=== PATIENT | female | born 1955 | race Caucasian/White ===

== ENCOUNTER 2016-07-15 06:38 | Day surgery (SDC) | payer OTHER ==
[2016-07-15] MEDS ORDERED: MIDAZOLAM 2 MG/2 ML VIAL IVP ONE (06:41)
[2016-07-15] MEDS ORDERED: fentaNYL 100 MCG/2 ML INJ IVP ONE (06:41)
[2016-07-15] MEDS ORDERED: BENZOCAINE UNIT DOSE SPRAY HURRICAINE MM ONE (06:41)
[2016-07-15] MEDS ORDERED: NS 1,000 ML IV ONE (06:41)
[2016-07-15] MEDS ORDERED: PROPOFOL 200 MG/20 ML VIAL ONE (07:58)
[2016-07-15] MEDS ORDERED: SUCCINYLCHOLINE CHLORIDE*ANESTHESIA ONLY*200 MG/10 ML SYR IVP ONE (07:58)
[2016-07-15] MEDS ORDERED: LIDOCAINE 2% 100 MG/5 ML SYR ONE (07:58)
--- NOTE | 2016-07-15 09:12 | ECHO ---
[id number] + + [address] : : [facility] [address] : : [phone] + + Adult Echocardiographic Report + + :Name: WILLY AUGUSTIN Study Date: 07/15/2016 07:53 AM : : Hospital Admission Number: [id number] : :: 1955 Gender: Female : :Age: 60 yrs Race: WH : + + Left Ventricle Left ventricular systolic function is normal. Ejection Fraction = 60-65%%. The left ventricular wall motion is normal. Right Ventricle The right ventricle is normal in size and function. Atria No thrombus is detected in the left atrial appendage. The left atrial size is normal. Right atrial size is normal. The atrial septum is aneurysmal. Injection of contrast documented an interatrial shunt. Mitral Valve The mitral valve is normal in structure and function. There is no evidence of mitral valve prolapse. There is trace mitral regurgitation. Tricuspid Valve The tricuspid valve is normal in structure and function. There is trace tricuspid regurgitation. Aortic Valve The aortic valve is normal in structure and function. Trace aortic regurgitation. Pulmonic Valve The pulmonic valve is normal in structure and function. There is no pulmonic valvular regurgitation. Great Vessels Ascending aorta is normal size. Pericardium/Pleural There is no pericardial effusion. Conclusion No thrombus is detected in the left atrial appendage. The atrial septum is aneurysmal. Injection of contrast documented an interatrial shunt. The aortic valve is normal in structure and function. Trace aortic regurgitation. There is trace tricuspid regurgitation. There is trace mitral regurgitation. Left ventricular systolic function is normal. Ejection Fraction = 60-65%%. The left ventricular wall motion is normal. Final Reading Physician: Nadeem Rader electronically signed on 07/15/2016 09:11 AM Ordering Physician: Nadeem Rader
--- NOTE | 2016-07-15 09:13 | CPR ---
[f rep st] NONINVASIVE CARDIAC PROCEDURE REPORT DATE OF PROCEDURE: 07/15/2016 PROCEDURE: Transesophageal echocardiogram. INDICATION FOR THE PROCEDURE: History of hypoxia, sleep apnea, and evidence of positive agitated sa line contrast study and transthoracic echocardiogram. SANDRA is being performed to assess interatrial septum in greater detail. DESCRIPTION OF PROCEDURE: After informed consent, the patient was brought to the cardiovascular pro cedure suite. She was consulted for transesophageal echocardiogram. She was also seen by Dr. Celestin of anesthesia who consented patient for propofol sedation during the procedure. Risks and benefits of the procedure were reviewed in detail. Patient was agreeable to pursue. After time-out, a bite block was placed. Propofol was administered. Once appropriate level of nancy tion was achieved, SANDRA probe was passed without incident. SANDRA probe was used to take images of all cardiac structures with focus on interatrial septum. Please see complete echo report for details. Interatrial septum was aneurysmal with color Doppler as well as agitated saline contrast study for p atent foramen ovale. There was complete rim of tissue. There was no evidence of atrial septal defe ct. The remainder of her echocardiogram was relatively unremarkable. Patient tolerated the procedure well. No postoperative complications. PLAN: 1. The patient will recover in [facility]. 2. The patient will be discharged home later this morning. 3. The patient will follow up in our office for plans for further considerations. /[id number]/MODL
== END 2016-07-15 10:52 | disposition home or self-care (01) ==
LOC: FCATH 06:38
PROVIDERS: ATTEND Internal Medicine Cardiovascular Disease
PROC: B246ZZ4 Ultrasonography of Right and Left Heart, Transesophageal (ICD-10-PCS; principal; 2016-07-15)
DX: G47.33 Obstructive sleep apnea (adult) (pediatric) (principal); R09.02 Hypoxemia; I10 Essential (primary) hypertension; E78.4 Other hyperlipidemia; F17.210 Nicotine dependence, cigarettes, uncomplicated; Z82.3 Family history of stroke
CPT/HCPCS: J0330; J2001; J2704

== ENCOUNTER 2017-06-05 09:11 | Inpatient (IN) | payer OTHER ==
--- NOTE | 2017-06-05 09:21 | EDPHY ---
H & P Stated Complaint: aphasia for a week, MILLIGAN for 3 weeks Time Seen by Provider: 06/05/17 09:18 - Personal History Current Tetanus/Diphtheria Vaccine: No Current Tetanus Diphtheria and Acellular Pertussis (TDAP): No - Medical/Surgical History Hx Asthma: No Hx Chronic Respiratory Disease: No Hx Diabetes: Yes Hx Cardiac Disease: Yes Hx Renal Disease: No Hx Cirrhosis: No Hx Alcoholism: No Hx HIV/AIDS: No Hx Splenectomy or Spleen Trauma: No Other PMH: HTN, Hyperlipidema, depression - Social History Smoking Status: Light smoker Constitutional: Initial Vital Signs Temperature (C) 37.4 C 06/05/17 09:15 Heart Rate 76 06/05/17 09:15 Respiratory Rate 18 06/05/17 09:15 Blood Pressure 140/77 H 06/05/17 09:15 O2 Sat (%) 94 06/05/17 09:15 O2 Delivery Mode Room Air Allergies/Adverse Reactions: No Known Allergies Allergy (Verified 06/05/17 09:14) Home Medications: Medication Instructions Recorded Amlodipine Besylate 5 mg PO DAILY 07/15/16 Aspirin 81 mg PO DAILY 07/15/16 Citalopram 40 mg PO DAILY 07/15/16 Claritin 10 mg 10 mg PO DAILY 07/15/16 Epipen Kit 07/15/16 Lovastatin 20 mg PO DAILY 07/15/16 Prozac 20 MG (*) 20 mg PO DAILY 07/15/16 Triamterene-Hctz 37.5-25 mg Tb 1 tab PO DAILY 07/15/16 Medical Decision Making - Diagnostics Imaging Results: Imaging Impressions Brain MRI 06/05/17 09:29 Impression: 3.5 cm enhancing mass in the left parietal occipital junction suspicious for primary malignant neoplasm. There could be punctate calcification or hemosiderin deposition within it. Surrounding vasogenic edema and mild mass effect with mild midline shift subfalcine of left to right. Results called and discussed with Jeffery Li M.D. on 06/05/2017 at 11:22 a.m. Carotid Doppler Study 06/05/17 09:30 Impression: No hemodynamically significant stenosis by systolic velocity criteria. Findings discussed with perry Goel for Jeffery Li MD 06/05/2017 at 11 :53. Measurement of carotid stenosis is based on velocity parameters that correlate the residual internal carotid diameter with [place] Symptomatic Carotid Endarterectomy Trial (NASCET) based stenosis levels. Imaging: Discussed imaging studies w/ call worker Radiologist, I viewed and interpreted images myself ED Course/Re-evaluation: CHIEF COMPLAINT: Word-finding difficulty, headache HISTORY OF PRESENT ILLNESS: The patient is a 61 y/o female with a history of hypertension, hyperlipidemia, and PFO per records arriving with her friend at the recommendation of her PCP for progressive, but intermittent word-finding difficulty and headache over the last week. She was recently treated with antibiotics for a frontal headache that resolved. About one week ago she developed intermittent word finding difficulty and mild left occipital headache. She was evaluated by her PCP for this last week, but was asymptomatic at that time. She was prescribed a full strength aspirin daily with plan for outpatient imaging. She has taken aspirin for the last two days. Symptoms have continued to worsen since then, which is corroborated by her friend at bedside who describes odd wording in emails from the patient through the week. Today she has an occipital headache, feels mildly off balance, and has difficulty forming some words. She denies difficulty thinking of the appropriate word and has some confabulation of words stating things like, "I'm at the docisptal." She denies focal weakness or paresthesias. She has never had symptoms like this previously. REVIEW OF SYSTEMS: A 10 point review of systems was performed and is negative with the exception of the elements mentioned in the history of present illness. PHYSICAL EXAM: HR, BP 140/77, O2 Sat, RR. Temp noted General Appearance: Alert, well hydrated, appropriate, and non-toxic appearing. Head: Atraumatic without scalp tenderness or obvious injury Eyes: Pupils equal, round, reactive to light and accommodation, EOMI, no trauma , no injection. Nose: Atraumatic, no rhinorrhea, clear. Throat: Mucus membranes moist. Neck: Supple, nontender, no lymphadenopathy. Respiratory: No retractions, no distress, no wheezes, and no accessory muscle use. Lungs are clear to auscultation bilaterally. Cardiovascular: Regular rate and rhythm, no murmurs, rubs, or gallops. Good capillary refill all extremities. Gastrointestinal: Abdomen is soft, nontender, non-distended, no masses, no rebound, no guarding, no peritoneal signs. Musculoskeletal: Normal active ROM of all extremities, atraumatic. Neurological: Alert, following commands, and interactive. The patient has non- focal cranial nerves, motor, sensory, and cerebellar exam. Occasional word- finding/forming difficulty and confabulation. Skin: No rashes, good turgor, no nodules on palpation. Past medical history: Hypertension, hyperlipidemia, sinusitis, PFO Past surgical history: Noncontributory Family history: Noncontributory Social history: Lives in [place]. Friend at bedside. PCP: Dr. Gonzalez DIAGNOSTICS/PROCEDURES/CRITICAL CARE TIME: The 12 lead EKG was interpreted by myself. Sinus mechanism rate 71. See hard copy and/or "tracemaster" electronic copy for interpretation. Echocardiogram: informal read shows PFO, known from prior records. Carotid doppler: no significant stenosis Brain MRI: 3.5 cm enhancing mass in the left parietal occipital junction suspicious for primary malignant neoplasm DIFFERENTIAL DIAGNOSIS: The differential diagnosis for the patient's neurologic deficits included but was not limited to peripheral causes, central causes including CVA, TIA, electrolyte abnormalities and dehydration, cardiogenic causes, atypical causes like migraine syndrome. MEDICAL DECISION MAKING: This is a 61 y/o female with hypertension and known PFO who presents with a 1- week history of intermittent and progressive left occipital headache and word- finding/forming difficulties. She confabulates some words and has a delay when trying to say some words during exam. No unilateral weakness or asymmetry. Concern for stroke, but outside the window for alert. Plan for IV, labs, echocardiogram, EKG, and brain MRI. 30mg IV Toradol administered for headache. Brain MRI shows large left-sided mass likely tumor with surrounding edema. 10mg IV Decadron ordered. Consider antiepileptics. Neurosurgery paged. 1128: Consulted with Dr. Young Wylie, neurosurgery. He will review films and assess patient in the ED. 1130: Consulted with Dr. Gonzalez, patient's PCP, and updated him on condition. Spoke with hospitalist service. Dr. Stovall accepts admission. - Data Points Laboratory Results: Laboratory Results 06/05/17 09:25 06/05/17 09:25 06/05/17 06/05/17 06/05/17 09:25 09:25 09:25 WBC 7.26 10^3/uL 10^3/uL (3.80-9.50) RBC 5.19 10^6/uL 10^6/uL (4.18-5.33) Hgb 16.3 g/dL g/dL (12.6-16.3) Hct 49.2 % H % (38.0-47.0) MCV 94.8 fL fL (81.5-99.8) MCH 31.4 pg pg (27.9-34.1) MCHC 33.1 g/dL g/dL (32.4-36.7) RDW 11.9 % % (11.5-15.2) Plt Count 287 10^3/uL 10^3/uL (150-400) MPV 10.3 fL fL (8.7-11.7) Neut % (Auto) 58.3 % % (39.3-74.2) Lymph % (Auto) 28.8 % % (15.0-45.0) [place] % (Auto) 10.7 % % (4.5-13.0) Eos % (Auto) 1.1 % % (0.6-7.6) Baso % (Auto) 0.8 % % (0.3-1.7) Nucleat RBC Rel Count 0.0 % % (0.0-0.2) Absolute Neuts (auto) 4.23 10^3/uL 10^3/uL (1.70-6.50) Absolute Lymphs (auto) 2.09 10^3/uL 10^3/uL (1.00-3.00) Absolute Monos (auto) 0.78 10^3/uL 10^3/uL (0.30-0.80) Absolute Eos (auto) 0.08 10^3/uL 10^3/uL (0.03-0.40) Absolute Basos (auto) 0.06 10^3/uL 10^3/uL (0.02-0.10) Absolute Nucleated RBC 0.00 10^3/uL 10^3/uL (0-0.01) Immature Gran % 0.3 % % (0.0-1.1) Immature Gran # 0.02 10^3/uL 10^3/uL (0.00-0.10) PT 12.2 SEC SEC (12.0-15.0) INR 0.88 (0.83-1.16) Sodium 140 mEq/L mEq/L (135-145) Potassium 4.2 mEq/L mEq/L (3.5-5.2) Chloride 99 mEq/L mEq/L (97-110) Carbon Dioxide 29 mEq/l mEq/l (22-31) Anion Gap 12 mEq/L mEq/L (8-16) BUN 17 mg/dL mg/dL (7-23) Creatinine 0.8 mg/dL mg/dL (0.6-1.0) Estimated GFR > 60 Glucose 94 mg/dL mg/dL (70-100) Calcium 9.8 mg/dL mg/dL (8.5-10.4) Troponin I < 0.012 ng/mL ng/mL (0.000-0.034) Medications Given: Discontinued Medications Dexamethasone (Decadron Injection) 10 mg IVP EDNOW ONE Stop: 06/05/17 11:26 Last Admin: 06/05/17 12:04 Dose: 10 mg Ketorolac Tromethamine (Toradol) 30 mg IVP EDNOW ONE Stop: 06/05/17 11:04 Last Admin: 06/05/17 11:05 Dose: 30 mg Departure - Departure Disposition: [facility] Inpatient Acute Clinical Impression: Brain tumor, Aphasia Condition: Fair Report Scribed for: Jeffery Li Report Scribed by: Manasa Valdivia Date of Report: 06/05/17 Time of Report: 10:35
--- NOTE | 2017-06-05 09:27 | CPEKG ---
Heart Rate: 71 RR Interval: 845 P-R Interval: 172 QRSD Interval: 84 QT Interval: 428 QTC Interval: 466 P Ulm: 32 QRS Ulm: -8 T Wave Ulm: 10 EKG Severity - NORMAL ECG - EKG Impression: SINUS RHYTHM Electronically Signed By: Jeffery Li 05-Jun-2017 13:31:42
[2017-06-05 09:39] LABS: PLATELET COUNT 287 10^3/uL (150-400)
[2017-06-05 09:48] LABS: INR 0.88 (0.83-1.16); PROTIME(PATIENT) 12.2 SEC (12.0-15.0)
[2017-06-05] MEDS ORDERED: GADOBUTROL 10 ML VIAL IVP ONE (10:29)
[2017-06-05] MEDS ORDERED: KETOROLAC 30 MG/1 ML SDV IVP ONE (11:03)
[2017-06-05] MEDS ORDERED: DEXAMETHASONE 10 MG/ML VIAL IVP ONE (11:25)
--- NOTE | 2017-06-05 13:09 | ECHO ---
[email or web address] [address] [address] Main: [phone] Fax: [email or web address] Echocardiogram Name: WILLY AUGUSTIN MR#: [id number] Study Date: 06/05/2017 Study Time: 09:55 AM Date of : 1955 Age: 61 year(s) Height: 167.6 cm (66 in.) Weight: 81.65 kg (180 lb.) BSA: 1.91 m2 Gender: Female Examination: Echo Indication: Trouble word finding/CVA vs TIA Image Quality: Contrast: Requested by: Jeffery Li BP: / Heart Rate: Rhythm: Indication: Trouble word finding/CVA vs TIA Procedure Staff Web Press Operator Assistant: Kavitha Davidson RDCS Reading Physician: Nadeem Rader MD Requesting Provider: Conclusions: Normal size left ventricle. Normal global systolic LV function. The ejection fraction is estimated to be 65-70 %. No regional wall motion abnormality. Grade 1 diastolic dysfunction (abnormal relaxation). The left atrium is normal in size. The right atrium is normal in size. The pulmonary artery pressure is normal. Borderline aortic root dilitation with Index value of 1.93. Measurements: Chambers Valvular Assessment AV/MV Valvular Assessment TV/PV Normal Normal Normal Name Value Range Name Value Range Name Value Range Ao María Elena (MM): 3.5 cm (2.2 cm-3.7 AV Vmax: 1.65 m/s (1 m/s-1.7 TR Vmax: 2.34 mm/s ( - ) cm) m/s) TR PGmax: 22 mmHg ( - ) IVSd (2D): 0.7 cm (0.6 cm-1.1 AV maxP mmHg ( - ) syst. PAP: 27 mmHg ( - ) cm) AV meanP mmHg ( - ) LVDd (2D): 5.0 cm (3.9 cm-5.3 MV E Vmax: 0.53 m/s ( - ) cm) MV A Vmax: 0.73 m/s ( - ) LVDs (2D): 2.7 cm (2.1 cm-4 MV E/A: 0.73 ( - ) cm) LVPWd (2D): 0.5 cm ( - ) LVEF (MOD4): 72 % (>=55 %) EF Range: 65-70 % Continued Measurements: Chambers Valvular Assessment AV/MV Valvular Assessment TV/PV Patient: WILLY AUGUSTIN Study Date: 06/05/2017 Page 1 of 2 09:55 AM Name Value Name Value Name Value LADs: 3.4 cm MV E/E' Septal: 9.40 CVP (est.): 5 mmHg LADs Lon.4 cm MV E/E' Lateral: 5.80 LA Area: 18.7 cm2 TAPSE: 2.0 cm Additional Vessels Name Value Ao Ascendin.7 cm Findings: Left Ventricle: Normal size left ventricle. No LV hypertrophy. Normal global systolic LV function. The ejection fraction is estimated to be 65-70 %. No regional wall motion abnormality. Grade 1 diastolic dysfunction (abnormal relaxation). Right Ventricle: Normal size right ventricle. Normal RV function. Left Atrium: The left atrium is normal in size. Known PFO from SANDRA done 07/20.. Right Atrium: The right atrium is normal in size. Mitral Valve: The mitral valve is normal in appearance and function. Trivial mitral valve regurgitation. Aortic Valve: The aortic valve is normal in appearance and function. Trivial to mild aortic valve regurgitation. Mild aortic valve regurgitation is present. Tricuspid Valve: The tricuspid valve is normal in appearance and function. Trivial tricuspid valve regurgitation. The pulmonary artery pressure is normal. Pulmonic Valve: The pulmonic valve is normal in appearance and function. Aorta: Borderline aortic root dilitation with Index value of 1.93. Pericardium: No pericardial effusion. (No Signature Object) Patient: WILLY AUGUSTIN Study Date: 06/05/2017 Page 2 of 2 09:55 AM [id number]
[2017-06-05] MEDS ORDERED: ONDANSETRON DISINTEGRATING 4 MG TAB PO PRN (13:21)
[2017-06-05] MEDS ORDERED: ONDANSETRON 4 MG/2 ML VIAL IVP PRN (13:21)
--- NOTE | 2017-06-05 15:14 | GHP ---
[f rep st] HISTORY AND PHYSICAL DATE OF ADMISSION: 06/05/2017 CHIEF COMPLAINT: Word-finding difficulties and headache x1 week. HISTORY OF PRESENT ILLNESS: The patient is a 61-year-old female with a history of hypertension, hyperlipidemia, patent foramen ovale who came to the emergency room for progressive but intermittent word-finding difficulties ongoing for the last week. She also has had a headache that has come and gone. She was recently treated with azithromycin for a frontal headache that subsequently resolved. She also said that she had fevers, no chills, but had cold-like symptoms that have since resolved. Her word finding difficulty did not subside , and she went to see her primary care provider who told her to come to the emergency room. In the emergency room, she had an occipital headache and felt mildly off- balance and had some difficulty finding some words. During my interview, her symptoms had improved. She had been given a dose of Decadron. She denies any weight loss. She has had no seizure activity. She has had some difficulties with her vision. No double vision, but problems with distant and close up vision. She has trouble with speaking and finding words, but has no problems with receiving information. She had an MRI performed that showed an enhancing mass in the left parietooccipital junction suspicious for a primary malignant neoplasm. She was seen and evaluated by Neurosurgery. She was admitted for further evaluation. PAST MEDICAL HISTORY: 1. Hypertension. 2. Hyperlipidemia. 3. Depression. 4. Patent foramen ovale that was treated with aspirin therapy. PAST SURGICAL HISTORY: Kincaid teeth extraction. SOCIAL HISTORY: She lives alone in [place]. 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 She has no children. She has smoked for greater than 30 years and is down to 2 cigarettes a day. She used to smoke as much as a pack a day. She has approximately 3 beers a couple times a week. FAMILY HISTORY: Her mom had a history of breast cancer. She at age 85. She from complications of a stroke. Her father is 86 and . She is unclear what he from, but she knows that he also has had strokes. Her siblings do not have any type of cancer. ALLERGIES: No known allergies. HOME MEDICATIONS: Azithromycin 250 mg daily, herbal supplements 1 tab daily, Celexa 40 mg p.o. q.h.s., aspirin 325 mg daily, triamterene 1 tab daily, lovastatin 20 mg p.o. q.h.s., EpiPen 0.3 mg p.r.n. for allergic reaction. REVIEW OF SYSTEMS: A 10-point review of systems was performed, was negative other than pertinent positives in HPI and past medical history. PHYSICAL EXAM: GENERAL: The patient is a 61-year-old female who appears to be in fair health. VITAL SIGNS: Blood pressure is 140/97, heart rate is 78, respiratory rate is 18, O2 sats on 2 L are 96%, temperature is 36.8 Celsius. EYES: PERRLA, EOMs are intact. No conjunctival injection noted. ENT: Hearing is intact. Normal lips. Oral airway is moist. NECK: Trachea is midline. CARDIOVASCULAR: She is in a regular rate and rhythm. No murmurs, rubs, or gallops noted. She has 2+ pedal pulses. CHEST: Lungs normal respiratory effort. Clear without wheezing or rale. ABDOMEN: Soft, nontender. SKIN: No rashes. Warm, dry, and intact. MUSCULOSKELETAL: She has equal upper and lower extremity strength. NEUROLOGIC: Her sagger filler are equal bilaterally. Her tongue is midline. No pronator drift is noted. Pull up and pull down with her feet are equal. She does have some difficulty with finding words, but when she thinks through she is able to tell me what she is wanting to say. PSYCHIATRIC: She is alert and oriented. Normal mood, affect. Normal judgment, insight, and normal memory. LABORATORY DATA: A CBC shows a white blood cell count of 7.26, hemoglobin 16.3 , hematocrit of 49.2, platelet count of 287. Coags show a pro time of 12.2, INR of 0.88. Chemistry: Sodium is 140, potassium 4.2, chloride 99, CO2 of 29, BUN 17, creatinine 0.8, glucose of 94, calcium 9.8. Troponin negative at 0.02. IMAGIN. ECG was performed in the emergency room which I evaluated myself. This shows a sinus rhythm. 2. MRI shows a 3.5 cm enhancing mass in the left parietooccipital junction suspicious for primary malignant neoplasm. There could be a punctate calcification or hemosiderin deposition with it. She has surrounding vasogenic edema and mild mass effect with a mild midline shift sub falcine of left to right. 3. Echocardiogram. No LV hypertrophy. She has normal global systolic LV function. Her ejection fraction is 65% to 70% without any regional wall abnormality. She has grade I diastolic dysfunction. Her left atrium shows a known PFO from a SANDRA done in 07/2016. The pulmonary artery pressure is noted to be normal. She has no pericardial effusion. She has borderline aortic root dilatation with an index value of 1.93. 4. Carotid Doppler study. No hemodynamically significant stenosis. I reviewed her care with Dr. Jeffery Li, emergency room physician. ASSESSMENT AND PLAN: 1. Left parietooccipital lesion concerning for malignancy. She has some swelling. Neurosurgery has seen and evaluated her. She has been started on Decadron for the edema. The plan is for surgery on this coming . She has a history of smoking. Will get a chest x-ray to further evaluate. In addition, will check liver function tests. Could consider getting a CT of the chest, abdomen, and pelvis, but will further evaluate chest x-ray results. 2. Hyperlipidemia. Resume statin. 3. Hypertension. Resumed her home medications with parameters placed on them. 4. Depression. Celexa. 5. Nicotine dependence. Patch ordered. Cessation recommended. 6. Deep venous thrombosis prophylaxis. Will place her on bmj-flifzdyzd-enkubt heparin. This will need to be stopped prior to morning. 7. Code status: Full. 8. Length of stay: She will require greater than a 2-midnight stay for further evaluation of the brain lesion. /[id number]/MODL MTDD
[2017-06-05] MEDS: AZITHROMYCIN 250 MG TAB PO SCH (15:35)
--- NOTE | 2017-06-05 15:37 | PDMN ---
Medical Necessity Medical necessity: Patient meets inpatient criteria per REFRACTORY MANAGER note and [facility] (new-onset severe neurologic finding: mass effect/L to R shift on MRI; mass suspicious for primary malignant neoplasm; history of MILLIGAN's, increasing difficulty with word-finding intermittently: LOS will be > 2 midnights for anticipated debulking neurosurgery after further workup, IV Decadron.)
[2017-06-05] MEDS ORDERED: TEMAZEPAM 15 MG CAP PO PRN (17:15)
[2017-06-05] MEDS: DEXAMETHASONE 4 MG TAB PO SCH ×2 (17:50→23:55)
--- NOTE | 2017-06-05 19:56 | NEUSURGPN ---
Assessment/Plan: Assessment: 61 yr old with aphasia, left sided headaches. MRI brain with left parietal/occipital mass Plan: -Please see full dictated consult when available -Patient admitted to medicine -Hold ASA -Will start decadron 4mg [id number] -Plan for surgery this with Dr Bueno -Patient was seen and examined by myself and Dr Wylie in the ER today at 1135 -Please call neurosurgery with any questions/concerns Subjective: Left sided headache Objective: AxO x3 CN 2-12 grossly intact aside from facial droop Mild right facial droop Mild right pronator drift Aphasic throughout conversation 07/08 BUE, BLE Neuro Check Frequency: per routine Urinary Catheter in Place: No - Physician Discussed Patient with : Dejan Patient Seen by : Dejan (Patient discussed with Dr Bueno as well) Neurosurgery Physical Exam - Vitals, I&O, Labs I and O 06/04/17 06/05/17 06/06/17 05:59 05:59 05:59 Intake Total 3500 Output Total 100 Balance 3400 Weight 81.647 kg Intake: Oral (ml) 2500 IV Infused (ml) 1000 Output: Urine (ml) 100 Toilet 100 Other: Intake Quantity Yes Sufficient Number of Voids Toilet 3 Vital Signs Temp Pulse Resp BP Pulse Ox 36.9 C 72 18 138/81 H 94 06/05/17 19:43 06/05/17 19:43 06/05/17 19:43 06/05/17 19:43 06/05/17 19:43 ICD10 Worksheet Patient Problems: Problems Problem Status Onset Aphasia Acute Brain tumor Acute
[2017-06-05] MEDS ORDERED: NON-FORMULARY NEW DRUG (Citalopram Hydrobromide [Celexa] 40 MG) PO SCH (21:00)
[2017-06-05] MEDS: MELATONIN 3 MG TAB PO SCH (21:09)
[2017-06-05] MEDS: CITALOPRAM 20 MG TAB PO SCH (21:09)
--- NOTE | 2017-06-05 21:25 | GCON ---
[f rep st] CONSULTATION EMERGENCY ROOM CONSULTATION CHIEF COMPLAINT: Difficulty speaking, left cranial mass HISTORY OF PRESENT ILLNESS: The patient is a 61-year-old female with a history of hypertension and hyperlipidemia. The patient reports having increasing left- sided headaches, as well as difficulty with speech over the last 3 weeks. The patient presented to the emergency department today, underwent a MRI of the brain, which was found to have a left-sided cranial mass. REVIEW OF SYSTEMS: A 10-point review of system was performed and negative aside from what was mentioned in the HPI. MEDICAL HISTORY: Hypertension, hyperlipidemia, and depression. MEDICATIONS: Amlodipine 5 mg daily, aspirin 81 mg daily, citalopram 40 mg daily , Claritin 10 mg daily, lovastatin 20 mg daily, Prozac 20 mg daily, and triamterene/hydrochlorothiazide 37.5/25 mg daily. SURGICAL HISTORY: Patient denies any previous surgeries. ALLERGIES: Patient has no known drug allergies. FAMILY HISTORY: Patient's mother had a breast cancer later in her life when she was 78. 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 She is a light smoker, admits to smoking 3 cigarettes per day. She drinks 2-3 beers approximately 2-3 times per week. She denies any use of illicit drugs, including marijuana. DIAGNOSTICS/LABORATORY RESULTS: Laboratory Results: White blood cell count 7.24, hemoglobin 16.3, hematocrit 49.2, platelet count 287, PT 12.2, INR 0.88, sodium 140, potassium 4.2, BUN 17, creatinine 0.8, glucose 94. DIAGNOSTIC IMAGING: MRI of the brain performed with without contrast earlier this morning, demonstrates a 3.5 cm enhancing mass in the left parietal occipital junction which is suspicious for a primary malignant neoplasm. Surrounding vasogenic edema and mild mass effect with mild midline shift, subfalcine of left to right. PHYSICAL EXAMINATION: VITAL SIGNS: Blood pressure is 140/97, heart rate 78, respiratory rate 18, oxygen saturation is 96% on 2 L nasal cannula, temperature is 37.4 degrees Celsius. HEENT: Head is normocephalic, atraumatic. Pupils are equal, round, and reactive to light. EOMI is intact. Full visual manning by confrontation. RESPIRATORY: Deferred. CARDIAC: Deferred. ABDOMEN: Deferred. GENITOURINARY: Deferred. RECTAL: Deferred. NEUROLOGIC: The patient is awake, alert, oriented to name, place, location, date, time, and situation. Her memory is intact to immediate past and current events. SPEECH: The patient has aphasia, difficulty with words. Cranial nerves 2-10 are grossly intact, aside from a mild right facial droop. Patient also has a mild right pronator drift. MOTOR: The patient has 5/5 strength in all muscle groups in the bilateral lower and upper extremities to include deltoids, biceps , triceps, brachioradialis, wrist flexion, extensors, sample mounter, intrinsic fingers, iliopsoas, quadriceps, hamstring, plantar flexion, dorsiflexion, EHL testing. Sensation is grossly intact to light touch throughout all dermatomal distributions in bilateral upper and lower extremities. REFLEXES: Biceps, triceps, brachioradialis, knee jerk and ankle jerk are 2+/4. Toes are downgoing bilaterally. Abilio sign is negative. Babinski is negative. There is no evidence of clonus. ASSESSMENT AND PLAN: The patient is a 61-year-old female who presented to the emergency department with 3 weeks of progressive aphasia and left-sided headaches. The patient underwent a MRI of the brain with without contrast, which demonstrated a 3.5 cm enhancing mass in the left parietal occipital region. The patient is being admitted to the medicine team. We will start the patient on steroids 4 mg q.6 hours to help with the edema. No Keppra at this time. We will stop her aspirin in preparation for surgery, which will likely happen later this week after she is off her aspirin for a few days. The patient will undergo a left craniotomy for tumor resection with Dr. Kaleb Bueno possibly this on June 08. We will need to get a stealth MRI with and without prior to surgery for operative planning. The patient was seen and examined by myself and Dr. Reyna Wylie in the emergency department today, June 05, 2017, at 11:35 a.m. Please call Neurosurgery with any questions or concerns. /[id number]/MODL MTDD
[2017-06-06] MEDS: DEXAMETHASONE 4 MG TAB PO SCH ×3 (05:46→17:21)
[2017-06-06] MEDS: amLODIPine BESYLATE 5 MG TAB PO SCH (07:59)
[2017-06-06] MEDS: NICOTINE 7 MG/24 HR PATCH TD SCH (08:01)
[2017-06-06] MEDS: TRIAMTERENE/HCTZ 37.5/25 1 EACH TAB PO SCH (08:02)
[2017-06-06] MEDS ORDERED: ENOXAPARIN 40 MG/0.4 ML SYR SC SCH (09:00)
--- NOTE | 2017-06-06 09:04 | NEUSURGPN ---
Assessment/Plan: Assessment: 61 yr old with expressive aphasia, left sided headaches and left parietal/occipital mass Plan: -Appreciate medicine work up/management -Continue to hold ASA -Continue decadron 4mg [id number] -Plan for surgery this with Dr Bueno, briefly discussed the risks, benefits and alternatives for a left frontal craniotomy/biopsy/resection with the patient -Please call neurosurgery with any questions/concerns - Discussed with Dr. Bueno Subjective: Speech stable, denies new headaches Objective: NAD A&Ox3 Expressive aphasia, CN II-XII grossly intact. MAEx4 Neurosurgery Physical Exam - Vitals, I&O, Labs I and O 06/05/17 06/06/17 06/07/17 05:59 05:59 05:59 Intake Total 4200 Output Total 100 Balance 4100 Weight 81.647 kg Intake: Oral (ml) 3200 IV Infused (ml) 1000 Output: Urine (ml) 100 Toilet 100 Other: Intake Quantity Yes Sufficient Number of Voids Toilet 2 Vital Signs Temp Pulse Resp BP Pulse Ox 36.8 C 62 16 129/78 H 98 06/06/17 07:15 06/06/17 07:15 06/06/17 07:15 06/06/17 08:02 06/06/17 07:15 ICD10 Worksheet Patient Problems: Problems Problem Status Onset Aphasia Acute Brain tumor Acute
--- NOTE | 2017-06-06 11:06 | ASMTCMCOM ---
CM Note CM Note Notes: Patient admitted for expressive aphasia - found to have concerning L parietal/occipital mass. Surgery planned for 06/08. [facility] BUT[facility]ER has recommended inpatient rehab, but discharge needs will be clearer post-operatively. 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 Case Management will follow. Date Signed: 06/06/2017 11:05 AM Electronically Signed By:Belén Knutson RN
[2017-06-06] MEDS: AZITHROMYCIN 250 MG TAB PO SCH (12:01)
--- NOTE | 2017-06-06 14:27 | HOSPPROG ---
Hospitalist Progress Note Assessment/Plan: # Acute left parietal occipital brain lesion- MRI brain(personally reviewed and interpreted) 3.5 cm enhancing left-sided brain mass Patient with recent and persistent word-finding difficulties Chest x-ray (personally reviewed and interpreted) no acute abnormalities- oxygen saturations 95% on RA - neurosurgery consulting - Continue Decadron - planning for brain biopsy 06/08 # hypertension- controlled systolic blood pressure 120-130- sodium 140 - Continue home meds # hyperlipidemia- continue statin # proph - ambulating and SCD's in bed # diet - regular # dispo - > 2MN as requires brain biopsy and monitoring I have discussed the case with RN - continue current care - plan for biopsy on Subjective: denies pain Objective: Vital Signs Temp Pulse Resp BP Pulse Ox 36.7 C 76 16 135/96 H 95 06/06/17 11:47 06/06/17 11:47 06/06/17 11:47 06/06/17 11:47 06/06/17 11:47 06/05/17 06/06/17 06/07/17 05:59 05:59 05:59 Intake Total 4200 Output Total 100 Balance 4100 PT 12.2 SEC (12.0-15.0) 06/05/17 09:25 INR 0.88 (0.83-1.16) 06/05/17 09:25 - Physical Exam Constitutional: no apparent distress Eyes: anicteric sclera Ears, Nose, Mouth, Throat: moist mucous membranes Cardiovascular: regular rate and rhythym Respiratory: no respiratory distress Gastrointestinal: normoactive bowel sounds Genitourinary: no bladder fullness Skin: warm Musculoskeletal: No asymmetric calves Neurologic: AAOx3, other (Intermittent word-finding difficulties) Psychiatric: interacting appropriately Lymph, Heme, Immunologic: no cervical LAD ICD10 Worksheet Patient Problems: Problems Problem Status Onset Aphasia Acute Brain tumor Acute
[2017-06-06] MEDS: ACETAMINOPHEN 325 MG TAB PO PRN (17:26)
[2017-06-06] MEDS: CITALOPRAM 20 MG TAB PO SCH (20:29)
[2017-06-06] MEDS: MELATONIN 3 MG TAB PO SCH (20:31)
[2017-06-07] MEDS: DEXAMETHASONE 4 MG TAB PO SCH ×5 (00:10→23:45)
--- NOTE | 2017-06-07 07:21 | NEUSURGPN ---
Assessment/Plan: Assessment: 61 yr old with expressive aphasia, left sided headaches and left parietal/occipital mass Plan: -Appreciate medicine work up/management -Continue to hold ASA and any blood thinners -Continue decadron 4mg [id number] -Plan for surgery this with Dr Bueno, briefly discussed the risks, benefits and alternatives for a left frontal craniotomy/biopsy/resection with the patient -consents signed and orders in place -Please call neurosurgery with any questions/concerns -Discussed with Dr. Bueno Subjective: Awake and alert. NAD. No new events overnight. Objective: NAD, A&Ox3. Pt with continued expressive aphasia, CN II-XII grossly intact. MAEx4 Neuro Check Frequency: per routine Urinary Catheter in Place: No - Physician Discussed Patient with Dr.: Bueno Neurosurgery Physical Exam - Vitals, I&O, Labs I and O 06/06/17 06/07/17 06/08/17 05:59 05:59 05:59 Intake Total 4200 1400 Output Total 100 Balance 4100 1400 Weight 81.647 kg Intake: Oral (ml) 3200 1400 IV Infused (ml) 1000 Output: Urine (ml) 100 Toilet 100 Other: Intake Quantity Yes Yes Sufficient Number of Voids Toilet 2 2 Vital Signs Temp Pulse Resp BP Pulse Ox 36.6 C 55 L 16 102/70 95 06/07/17 04:00 06/07/17 04:00 06/07/17 04:00 06/07/17 04:00 06/07/17 04:00 ICD10 Worksheet Patient Problems: Problems Problem Status Onset Aphasia Acute Brain tumor Acute
[2017-06-07] MEDS: NICOTINE 7 MG/24 HR PATCH TD SCH (08:30)
[2017-06-07] MEDS: amLODIPine BESYLATE 5 MG TAB PO SCH (08:30)
[2017-06-07] MEDS: TRIAMTERENE/HCTZ 37.5/25 1 EACH TAB PO SCH (08:30)
--- NOTE | 2017-06-07 10:06 | HOSPPROG ---
Hospitalist Progress Note Assessment/Plan: # Acute left parietal occipital brain lesion- MRI brain 3.5 cm enhancing left- sided brain mass - Patient with recent and persistent word-finding difficulties and headaches - Chest x-ray no acute abnormalities- oxygen saturations 95% on RA - Continue Decadron - planning for left frontal craniotomy/biopsy/resection tomorrow # hypertension- controlled - Continue home meds # hyperlipidemia- continue statin # proph - ambulating and SCD's in bed, lovenox held # diet - regular #Plan: NPO after midnight, she has a friend coming to stay with her once she goes home. Subjective: Gabby has no complaints, ready for surgery. Objective: Vital Signs Temp Pulse Resp BP Pulse Ox 37.2 C 67 16 131/85 H 95 06/07/17 08:00 06/07/17 08:00 06/07/17 08:00 06/07/17 08:00 06/07/17 08:00 06/06/17 06/07/17 06/08/17 05:59 05:59 05:59 Intake Total 4200 1400 Output Total 100 Balance 4100 1400 PT 12.2 SEC (12.0-15.0) 06/05/17 09:25 INR 0.88 (0.83-1.16) 06/05/17 09:25 - Physical Exam Constitutional: no apparent distress, appears nourished, not in pain Eyes: PERRL Ears, Nose, Mouth, Throat: hearing normal Respiratory: no respiratory distress Gastrointestinal: normoactive bowel sounds Skin: warm Musculoskeletal: full muscle strength Neurologic: AAOx3, other (has some difficulty w word finding) Psychiatric: interacting appropriately, not anxious, not encephalopathic ICD10 Worksheet Patient Problems: Problems Problem Status Onset Aphasia Acute Brain tumor Acute
[2017-06-07] MEDS: AZITHROMYCIN 250 MG TAB PO SCH (12:42)
[2017-06-07] MEDS: MELATONIN 3 MG TAB PO SCH (20:48)
[2017-06-07] MEDS: CITALOPRAM 20 MG TAB PO SCH (20:48)
[2017-06-08] MEDS: DEXAMETHASONE 4 MG TAB PO SCH ×2 (06:09→12:36)
[2017-06-08] MEDS ORDERED: GADOBUTROL 10 ML VIAL IVP ONE (06:51)
--- NOTE | 2017-06-08 08:40 | NEUSURGPN ---
Assessment/Plan: Assessment/Plan: Assessment: 61 yr old with expressive aphasia, left sided headaches and left parietal/occipital mass Plan: -To OR today for right frontoparietal craniotomy for resection of brain mass -Appreciate medicine work up/management -Continue to hold ASA and any blood thinners -Continue decadron 4mg [id number] -Discussed all risks, benefits of surgery including possible increase in aphasia or increased weakness after surgery that may be permanent or transient - This was discussed this morning with patient with Dr. Bueno present as well. -consents signed and orders in place -Please call neurosurgery with any questions/concerns -Discussed with Dr. Bueno Subjective: Speech better this morning, no problems with her right arm, this has improved with steroids. Objective: NAD, A&Ox3. Speech fluent this morning, hardly any aphasia this morning CN II-XII grossly intact. BUE/BLE 5 - Physician Discussed Patient with Dr.: Bueno Patient Seen by Dr.: Bueno Neurosurgery Physical Exam - Vitals, I&O, Labs I and O 06/07/17 06/08/17 06/09/17 05:59 05:59 05:59 Intake Total 1400 1000 Balance 1400 1000 Intake: Oral (ml) 1400 1000 Other: Intake Quantity Yes Yes Sufficient Number of Voids Toilet 2 5 Number of Stools Toilet 1 Vital Signs Temp Pulse Resp BP Pulse Ox 37.2 C 61 16 136/79 H 95 06/08/17 07:51 06/08/17 07:51 06/08/17 07:51 06/08/17 07:51 06/08/17 07:51 ICD10 Worksheet Patient Problems: Problems Problem Status Onset Aphasia Acute Brain tumor Acute
[2017-06-08] MEDS: TRIAMTERENE/HCTZ 37.5/25 1 EACH TAB PO SCH (09:07)
[2017-06-08] MEDS: amLODIPine BESYLATE 5 MG TAB PO SCH (09:08)
[2017-06-08] MEDS: NICOTINE 7 MG/24 HR PATCH TD SCH (09:31)
--- NOTE | 2017-06-08 14:28 | HOSPPROG ---
Hospitalist Progress Note Assessment/Plan: #Left occipital/parietal mass -craniotomy and resection today. IV steroids #Aphasia: due to above #HLD: statin #HTN: Norvasc #Diet: NPO DVT ppx: SCDs #Disp: cont inpatient admission for surgery today Subjective: "feeling very positive today". Mild global [place]ILLIG[place] Objective: Vital Signs Temp Pulse Resp BP Pulse Ox 37.1 C 61 16 132/93 H 91 L 06/08/17 14:19 06/08/17 14:19 06/08/17 14:19 06/08/17 14:19 06/08/17 14:19 06/07/17 06/08/17 06/09/17 05:59 05:59 05:59 Intake Total 1400 1000 240 Balance 1400 1000 240 PT 12.2 SEC (12.0-15.0) 06/05/17 09:25 INR 0.88 (0.83-1.16) 06/05/17 09:25 - Physical Exam Constitutional: no apparent distress Eyes: PERRL Ears, Nose, Mouth, Throat: moist mucous membranes Respiratory: no respiratory distress Gastrointestinal: normoactive bowel sounds Genitourinary: no bladder fullness Skin: warm Musculoskeletal: full muscle strength Neurologic: AAOx3, CN II-XII Intact, other (fluent speech today) Psychiatric: interacting appropriately ICD10 Worksheet Patient Problems: Problems Problem Status Onset Aphasia Acute Brain tumor Acute
[2017-06-08] MEDS ORDERED: LR 1,000 ML IV ONE (14:32)
[2017-06-08] MEDS ORDERED: BUPIVACAINE 0.25% 30 ML SDV ONE (16:59)
[2017-06-08] MEDS ORDERED: SURGIFLO MATRIX KIT WITH THROMBIN 8ml TP ONE (16:59)
[2017-06-08] MEDS ORDERED: MANNITOL 20% 100 GM/500 ML BAG IV ONE (16:59)
[2017-06-08] MEDS ORDERED: THROMBIN (BOVINE) 5,000 UNIT VIAL TP ONE (16:59)
[2017-06-08] MEDS ORDERED: AVITENE POWDER 1 GM JAR TP ONE (17:00)
[2017-06-08] MEDS ORDERED: POVIDONE-IODINE 30 GM OINTTUBE TP ONE (17:01)
[2017-06-08] MEDS ORDERED: GENTAMICIN SULFATE 80 MG/2 ML VIAL ONE ×2 (17:01→19:56)
[2017-06-08] MEDS ORDERED: CHLORHEXIDINE GLUC HIBICLENS 118 ML BTL TP ONE (17:03)
[2017-06-08] MEDS ORDERED: THROMBIN (BOVINE) 20,000 UNIT VIAL TP ONE (17:43)
[2017-06-08] MEDS ORDERED: MIDAZOLAM 2 MG/2 ML VIAL IVP ONE (18:26)
--- NOTE | 2017-06-08 18:26 | PDANEPAE ---
ANE History of Present Illness Left craniotomy ANE Past Medical History - Cardiovascular History Hx Hypertension: Yes Hx Arrhythmias: No Hx Chest Pain: No Hx Coronary Artery / Peripheral Vascular Disease: No Hx CHF / Valvular Disease: No Hx Palpitations: No - Pulmonary History Hx Oxygen in Use at Home: Yes O2 in Use at Home (L/minute): 2.5 Hx Sleep Apnea: Yes Sleep Apnea Screening Result - Last Documented: Positive - Endocrine History Hx Diabetes: Yes Hypothyroid: No Hyperthyroid: No Obesity: mild - Chronic Pain History Chronic Pain: No ANE Review of Systems Review of Systems: - Exercise capacity METS (RN): 4 METS ANE Patient History - Allergies Allergies/Adverse Reactions: No Known Allergies Allergy (Verified 06/05/17 09:14) - Home Medications Home Medications: Aspirin [Aspirin 325 mg (*)] 325 mg PO DAILY 07/15/16 [Last Taken 06/05/17] Citalopram Hydrobromide [Celexa] 40 mg PO HS 07/15/16 [Last Taken 06/04/17] EPINEPHrine [Epipen 0.3 MG] 0.3 mg IM ONCE PRN 07/15/16 [Last Taken Unknown] Lovastatin 20 mg PO HS 07/15/16 [Last Taken 06/04/17] Triamterene/Hydrochlorothiazid [Triamterene-Hctz 37.5-25 mg Tb] 1 each PO DAILY 07/15/16 [Last Taken 06/05/17] amLODIPine BESYLATE [Norvasc 5 mg (*)] 5 mg PO DAILY 07/15/16 [Last Taken ] Azithromycin [Zithromax] 250 mg PO DAILY@12 06/05/17 [Last Taken 06/04/17] Herbals/Supplements -Info Only 1 ea PO DAILY 06/05/17 [Last Taken Unknown] - NPO status NPO Since - Liquids (Date): 06/08/17 NPO Since - Liquids (Time): 13:00 NPO Since - Solids (Date): 06/07/17 NPO Since - Solids (Time): 20:00 - Anes Hx Anes Hx: no prior problems - Smoking Hx Smoking Status: Light smoker - Alcohol Use Alcohol Use: Occasionally - Family Anes Hx Family Anes Hx: none ANE Labs/Vital Signs - Labs Result Diagrams: 06/05/17 09:25 06/05/17 09:25 - Vital Signs Blood Pressure: 132/93 Heart Rate: 61 Respiratory Rate: 16 O2 Sat (%): 91 Height: 167.64 cm Weight: 81.647 kg ANE Physical Exam - Airway Neck exam: FROM Mallampati Score: Class 1 Mouth exam: normal dental/mouth exam - Pulmonary Pulmonary: no respiratory distress, no rales or rhonchi - Cardiovascular Cardiovascular: regular rate and rhythym, no murmur, rub, or gallop - ASA Status ASA Status: III ANE Anesthesia Plan Anesthesia Plan: general endotracheal anesthesia Lines/Monitors: arterial line
[2017-06-08] MEDS ORDERED: ceFAZolin 2 GM/SWFI 2 GM/20 ML SYR IVP ONE (18:30)
[2017-06-08] MEDS ORDERED: PROPOFOL/EMULSION 500 MG/50 ML BOTTLE IV ONE ×4 (18:33→21:26)
[2017-06-08] MEDS ORDERED: fentaNYL 250 MCG/5 ML INJ ONE (18:34)
[2017-06-08] MEDS ORDERED: ROCURONIUM 50 MG/5 ML VIAL ONE ×2 (18:34→20:31)
[2017-06-08] MEDS ORDERED: REMIFENTANIL HCL 1 MG VIAL ONE ×4 (19:29→22:46)
[2017-06-08] MEDS ORDERED: niCARdipine/NACL 200 ML IV PRN (19:55)
[2017-06-08] MEDS ORDERED: HYDROmorphONE/DILAUDID 2 MG/ML INJ IVP PRN (19:55)
[2017-06-08] MEDS ORDERED: PROMETHAZINE HCL 25 MG/ML INJ IVP PRN (19:55)
[2017-06-08] MEDS ORDERED: PROMETHAZINE HCL 25 MG TAB PO PRN (19:55)
[2017-06-08] MEDS ORDERED: BISACODYL 10 MG SUPP PR PRN (19:55)
[2017-06-08] MEDS ORDERED: MAG HYDROX/AL HYDROX/SIMETH 30 ML UDCUP PO PRN (19:55)
[2017-06-08] MEDS ORDERED: MAGNESIUM HYDROXIDE 30 ML UDCUP PO PRN (19:55)
[2017-06-08] MEDS ORDERED: LACTULOSE 20 GM/30 ML UDCUP PO PRN (19:55)
[2017-06-08] MEDS ORDERED: POLYETHYLENE GLYCOL 3350 17 GM PKT PO PRN (19:55)
[2017-06-08] MEDS ORDERED: DIAZEPAM 5 MG TAB PO PRN (19:55)
[2017-06-08] MEDS ORDERED: levETIRAcetam 1000MG/NACL 100 ML IV ONE (20:00)
[2017-06-08] MEDS ORDERED: NS W/ 20 KCl/L 1,000 ML IV SCH (20:00)
[2017-06-08] MEDS ORDERED: hydrALAZINE 20 MG/ML VIAL IVP PRN (20:03)
[2017-06-08] MEDS ORDERED: DEXAMETHASONE 4 MG/ML VIAL ONE ×3 (20:31)
[2017-06-08] MEDS ORDERED: GLYCOPYRROLATE 0.2 MG/1 ML VIAL ONE (20:31)
[2017-06-08] MEDS ORDERED: fentaNYL 100 MCG/2 ML INJ ONE (21:43)
[2017-06-08] MEDS ORDERED: ALBUMIN 5% 250 ML BOTTLE IV ONE (21:55)
[2017-06-08] MEDS ORDERED: ceFAZolin 1 GM VIAL ONE (22:06)
[2017-06-08] MEDS ORDERED: PROPOFOL 200 MG/20 ML VIAL ONE ×2 (22:32)
[2017-06-08] MEDS ORDERED: BACITRACIN ZINC 14.2 GM OINTTUBE TP ONE (23:07)
--- NOTE | 2017-06-08 23:32 | POSTOPPROG ---
Post Op Note Date of Operation: 06/08/17 Surgeon: Kaleb Bueno Video Software Engineer: none Anesthesiologist: Mikel Anesthesia: GET(General Endotracheal) Pre-op Diagnosis: left parietal glioma Post-op Diagnosis: same Indication: left parietal glioma Procedure: left crani for tumor resection Findings: see dictation Inf/Abcess present in the surg proc area at time of surgery?: No EBL: 50-100 Complications: none
--- NOTE | 2017-06-08 23:46 | SOAPPROG ---
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 ) Plan: - dex 4q6 - keppra - MRI in AM - SBP 90-140 - PT/OT/speech 06/08/17 23:43 Objective: Vital Signs Temp Pulse Resp BP Pulse Ox 37.1 C 61 16 132/93 H 91 L 06/08/17 14:19 06/08/17 18:26 06/08/17 18:26 06/08/17 18:26 06/08/17 18:26 06/07/17 06/08/17 06/09/17 05:59 05:59 05:59 Intake Total 1400 1000 240 Balance 1400 1000 240 PT 12.2 SEC (12.0-15.0) 06/05/17 09:25 INR 0.88 (0.83-1.16) 06/05/17 09:25 Awake/alert, not currently following commands, mild to moderate fluent aphasia full strength and sensation all limbs, dressings c/d/i ICD10 Worksheet Patient Problems: Problems Problem Status Onset Aphasia Acute Brain tumor Acute
[2017-06-08] MEDS ORDERED: NALOXONE HCL 0.4 MG/ML INJ IVP PRN (23:54)
[2017-06-08] MEDS ORDERED: HYDROCODONE/APAP 5/325 TAB PO PRN (23:54)
[2017-06-08] MEDS ORDERED: fentaNYL 100 MCG/2 ML INJ IVP PRN (23:54)
[2017-06-09] MEDS: DEXAMETHASONE 4 MG TAB PO SCH ×5 (00:26→14:25)
[2017-06-09] MEDS: SENNOSIDES/DOCUSATE SODIUM TAB PO SCH ×3 (00:27→19:51)
[2017-06-09] MEDS: ACETAMINOPHEN 325 MG TAB PO PRN (00:35)
[2017-06-09] MEDS: CITALOPRAM 20 MG TAB PO SCH ×2 (00:35→19:49)
[2017-06-09] MEDS: MELATONIN 3 MG TAB PO SCH ×2 (00:36→19:50)
[2017-06-09] MEDS: OXYCODONE/APAP 5/325 TAB PO PRN ×4 (01:27→19:05)
--- NOTE | 2017-06-09 04:56 | GOP ---
[f rep st] OPERATIVE REPORT DATE OF OPERATION: 06/08/2017 SURGEON: Kaleb Bueno MD NEUROSURGEON: Kaleb Bueno MD PRODUCTION GRAPHIC DESIGNER: None. ANESTHESIA: General endotracheal. PREOPERATIVE DIAGNOSIS: Left parietal glioma. POSTOPERATIVE DIAGNOSIS: Left parietal glioma. PROCEDURE PERFORMED: 1. Left parietal craniotomy. 2. Microsurgical gross total resection of left parietal subcortical high-grade glioma. 3. Use of the operative microscope. 4. Stealth stereotactic neuronavigation for volumetric gross total resection of brain tumor. 5. Intraoperative motor mapping, somatosensory evoked potentials, motor evoked potentials. FINDINGS: Successful tumor resection. SPECIMENS: Left parietal brain tumor. ESTIMATED BLOOD LOSS: 100 cc. INDICATIONS: The patient is a 61-year-old woman who was admitted with some right-sided weakness, which was relatively subtle. MRI revealed a contrast enhancing necrotic mass in the left parietal lobe apparently posterior to the motor fibers and posterior and medial to Wernicke's area. We discussed at length the opportunity for resection and biopsy. We have taken her electively today after several days of IV steroids in the hospital for resection. DESCRIPTION OF PROCEDURE: After informed consent was obtained, the patient was brought to the operating room, was placed in supine position on the operating table. A formal time-out was performed, identifying the patient by name, medical record number and date of . Preoperative antibiotics were given. The endotracheal tube was placed and general endotracheal anesthesia was smoothly induced. The patient's head was turned slightly toward the right side and placed in the Pryor pins. All appropriate leads were placed for intraoperative somatosensory evoked and motor evoked potentials. The Stealth was then registered to the scalp and checked for accuracy using known surface landmarks. This was used to plan the parietal trajectory to the tumor and used to localize the area of the craniotomy. We planned to make a craniotomy much larger than the trajectory to the tumor given our desire for motor mapping as this tumor appeared to be just posterior to the motor fibers. An upside-down U shaped incision was marked in the left parietal region and a small strip of hair along the incision line was clipped. The head was then prepped and draped in the normal sterile fashion. The skin was infiltrated with 20 cc of 0.25% Marcaine with epinephrine for hemostasis. The skin incision was made using a 10 blade and the subcutaneous tissues were dissected using monopolar electrocautery. A single flap was elevated, exposing the bone. Again, we checked our position with the Stealth to be sure that it was accurate, and then 4 bur holes were created at the corner of the U shaped incision. These were connected using the craniotome to perform a roughly 5 x 5 cm craniotomy flap. A few dural tack-up stitches were placed and bleeding was controlled using bipolar electrocautery and Gelfoam. The dura was then opened in a curved curvilinear fashion with its base inferiorly and flapped down. The brain was quite full, given the peritumoral edema. At this point, a 6 contact strip electrode was placed anteriorly and superiorly in the craniotomy and passed underneath the dura. Phase reversal was used to localize the motor strip, which was the most anterior gyrus which was identified in the field. We then used bipolar cortical stimulation to confirm that we were getting hand signals in this gyrus. After the motor was adequately mapped, we next localized a sulcus posteriorly just anterior to a large parietal vein, where a good trajectory of the tumor could be obtained. We next brought the operative microscope in the field and remainder of the procedure was performed under high-power magnification. We began by opening the arachnoid over the sulcus and careful arachnoid and sulcal dissection was performed, preserving the martinez of the sulcus. Once we got to the inferior portion of the sulcus, the tissue was opened and a corticectomy was made. Careful dissection through the white matter was then obtained down to the edge of the tumor, which was well visualized. Bipolar electrocautery and some dissectors were used then to course around the capsule of the tumor superiorly and medially, carefully dissecting this away from the white matter tract. Once the plane had been established, a piece of tumor was taken and sent for frozen section, which returned as consistent with a high-grade glioma. Next, the tumor was internally debulked using the ultrasonic aspirator and a few specimens were saved for permanent pathology. We continued in this manner, dissecting around the edges of the tumor with the special dissectors, carefully this from the surrounding white matter. We continued then internally debulking the tumor as well. There were numerous vessels within this tumor which were coagulated, and it was quite vascular. As we continued this, the tumor was carefully debulked and we checked our position a number of times with the Stealth. Motor-evoked potentials were run periodically and all remained stable at baseline, as did the somatosensory evoked potentials. Once the entirety of the bulk of the tumor was removed, we carefully inspected the edges of the cavity to be sure that there was no residual tumor tissue. At this point, the cavity was copiously irrigated using gentamicin irrigation and cavity was lined with Surgicel. At this point, there was no further bleeding and the cavity was finally inspected using the Stealth to be sure that we had covered all the areas that we had expected. At this point, the dura was flapped back over the brain and was closed using interrupted 4-0 Nurolon. The wound was copiously irrigated again using gentamicin irrigation. The craniotomy flap was plated back in place using Synthes titanium plates and screws. The galea was closed using interrupted 2-0 Vicryls, the skin was closed using a running 3-0 Prolene. The patient was awakened in the operating room. She was extubated, transferred to the PACU in stable condition. There were no operative complications. I was scrubbed and present for the entire procedure and performed the procedure myself. FLUIDS AND URINE OUTPUT: Per the anesthesia record. /[id number]/MODL MTDD
[2017-06-09 05:33] LABS: PLATELET COUNT 291 10^3/uL (150-400)
[2017-06-09] MEDS ORDERED: levETIRAcetam 750 MG in NS (SYRINGE) 50 ML IV SCH (09:00)
--- NOTE | 2017-06-09 09:10 | POSTANESTH ---
Post Anesthetic Evaluation Cardiovascular Status: Normal, Stable Respiratory Status: Normal, Stable Level of Consciousness/Mental Status: Can Participate in Eval Pain Control: Adequate, Prn Tx Ordered Nausea/Vomiting Control: Adequate, Prn Tx Ordered Complications Possibly Related to Anesthesia: None Noted (Expressive aphasia continues. Had some aphasia pre op)
[2017-06-09] MEDS: TRIAMTERENE/HCTZ 37.5/25 1 EACH TAB PO SCH (09:15)
[2017-06-09] MEDS: NICOTINE 7 MG/24 HR PATCH TD SCH (09:16)
[2017-06-09] MEDS: amLODIPine BESYLATE 5 MG TAB PO SCH (09:16)
--- NOTE | 2017-06-09 09:58 | NEUSURGPN ---
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 follows all commands. - dex 4q6 - keppra - MRI pending this am - Pain management - TEDs, SCDs. - SBP 90-140 - PT/OT/speech - D/w Dr Bueno - Call NS with any issues Subjective: Pt resting in bed, has mild low grade headache Objective: AAOx3 expressive aphasia No droop CN II-XII otherwise grossly intact NAD VSS follows all commands Motor 5/5 BUE/BLE +LT Urinary Catheter in Place: Yes Urinary Catheter Indication: Surgical Requirement - Physician Discussed Patient with : Myles Neurosurgery Physical Exam - Vitals, I&O, Labs I and O 06/08/17 06/09/17 06/10/17 05:59 05:59 05:59 Intake Total 1000 1000 Output Total 960 Balance 1000 40 Weight 81.647 kg Intake: Oral (ml) 1000 1000 Output: Urine (ml) 960 Catheter 960 Other: Intake Quantity Yes Yes Sufficient Number of Voids Incontinence 1 Toilet 5 Number of Stools Toilet 1 Vital Signs Temp Pulse Resp BP Pulse Ox 37.2 C 58 L 10 L 140/78 H 98 06/09/17 08:16 06/09/17 08:16 06/09/17 08:16 06/09/17 09:16 06/09/17 08:16 Laboratory Results 06/09/17 05:27 06/09/17 05:27 ICD10 Worksheet Patient Problems: Problems Problem Status Onset Aphasia Acute Brain tumor Acute
--- NOTE | 2017-06-09 09:59 | HOSPPROG ---
Hospitalist Progress Note Assessment/Plan: #Left occipital/parietal mass -likely glioma. Repeat MRI today. Goal SBP 90-140 -s/p craniotomy and resection 06/08. IV steroids. Path pending #Aphasia: worse today #Leukocytosis: due to steroids #Hyperglycemia: from steroids, add low-dose SSI #HLD: statin #HTN: Norvasc #Diet: NPO DVT ppx: SCDs #Disp: cont inpatient admission for surgery today Subjective: aphasia worse this morning Objective: Vital Signs Temp Pulse Resp BP Pulse Ox 37.2 C 58 L 10 L 140/78 H 98 06/09/17 08:16 06/09/17 08:16 06/09/17 08:16 06/09/17 09:16 06/09/17 08:16 Laboratory Results 06/09/17 05:27 06/09/17 05:27 06/08/17 06/09/17 06/10/17 05:59 05:59 05:59 Intake Total 1000 1000 Output Total 960 Balance 1000 40 PT 12.2 SEC (12.0-15.0) 06/05/17 09:25 INR 0.88 (0.83-1.16) 06/05/17 09:25 - Physical Exam Constitutional: no apparent distress Ears, Nose, Mouth, Throat: moist mucous membranes Cardiovascular: regular rate and rhythym Respiratory: no respiratory distress Gastrointestinal: normoactive bowel sounds Genitourinary: no bladder fullness ICD10 Worksheet Patient Problems: Problems Problem Status Onset Aphasia Acute Brain tumor Acute
[2017-06-09] MEDS ORDERED: GADOBUTROL 10 ML VIAL IVP ONE (10:24)
[2017-06-09] MEDS ORDERED: D50W 25 GM/50 ML SYR IVP PRN (13:57)
--- NOTE | 2017-06-09 14:53 | ASMTCMCOM ---
CM Note CM Note Notes: Spoke with OT about patient and they recommend patient go for inpatient rehab and said PT is recommending same. Order was placed and eval is in progress. CM will follow. Date Signed: 06/09/2017 02:52 PM Electronically Signed By:Macy Esparza LCSW
[2017-06-09] MEDS ORDERED: *MD ORDERING ONLY-DEXAMETHASONE TAPER PO SCH (16:30)
[2017-06-09] MEDS ORDERED: INSULIN LISPRO 100 UNIT/ML SC SCH (18:00)
[2017-06-09] MEDS: INSULIN LISPRO 100 UNIT/ML SC SCH (19:00)
[2017-06-09] MEDS: levETIRAcetam 500 MG TAB PO SCH (19:49)
[2017-06-10] MEDS: OXYCODONE/APAP 5/325 TAB PO PRN ×3 (03:50→13:54)
[2017-06-10] MEDS: DEXAMETHASONE 4 MG TAB PO SCH ×3 (05:41→21:58)
[2017-06-10] MEDS: INSULIN LISPRO 100 UNIT/ML SC SCH ×2 (08:42→11:56)
[2017-06-10] MEDS: TRIAMTERENE/HCTZ 37.5/25 1 EACH TAB PO SCH (08:43)
[2017-06-10] MEDS: levETIRAcetam 500 MG TAB PO SCH ×2 (08:43→20:31)
[2017-06-10] MEDS: amLODIPine BESYLATE 5 MG TAB PO SCH (08:43)
[2017-06-10] MEDS: SENNOSIDES/DOCUSATE SODIUM TAB PO SCH ×2 (08:44→20:30)
[2017-06-10] MEDS: NICOTINE 7 MG/24 HR PATCH TD SCH (08:53)
--- NOTE | 2017-06-10 12:48 | NEUSURGPN ---
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 follows all commands. - continue decadron - keppra - Post op MRI with stable post surgical changes, small area residual tumor - Patient with left eye swelling related to incisional drainage. Encourage patient to elevate HOB and place ice prn - TEDs, SCDs - OK to removed telfa dressing, leave incision paty/sutures in place -Ok to shower daily and wash hair with baby shampoo -Final path pending, will consult oncology once final - PT/OT/speech - Discussed patient with Dr Bueno - Please call neurosurgery with any questions/concerns Subjective: Patient denies any issues other than eye swelling Objective: AAOx3 expressive aphasia No droop CN II-XII otherwise grossly intact NAD VSS follows all commands Motor 5/5 BUE/BLE +LT Neuro Check Frequency: per routine Urinary Catheter in Place: No - Physician Discussed Patient with : Myles Neurosurgery Physical Exam - Vitals, I&O, Labs I and O 06/09/17 06/10/17 06/11/17 05:59 05:59 05:59 Intake Total 1000 100 980 Output Total 960 500 Balance 40 100 480 Weight 81.647 kg Intake: Oral (ml) 1000 100 980 Output: Urine (ml) 960 500 Bedside Commode 500 Catheter 960 Other: Intake Quantity Yes Yes Yes Sufficient Number of Voids Bedside Commode 1 1 Incontinence 1 Toilet 1 Vital Signs Temp Pulse Resp BP Pulse Ox 36.5 C 71 17 107/65 90 L 06/10/17 11:16 06/10/17 11:16 06/10/17 11:16 06/10/17 11:16 06/10/17 11:16 Laboratory Results 06/09/17 05:27 06/09/17 05:27 ICD10 Worksheet Patient Problems: Problems Problem Status Onset Aphasia Acute Brain tumor Acute
--- NOTE | 2017-06-10 14:30 | HOSPPROG ---
Hospitalist Progress Note Assessment/Plan: #Left occipital/parietal mass -likely glioma. Repeat MRI showed small amount residual tumor. Path pending -s/p craniotomy and resection 06/08. IV steroids. #Left periorbital swelling: due to incisional drainage #Aphasia: worse today #Leukocytosis: due to steroids #Hyperglycemia: from steroids. Monitor #HLD: statin #HTN: Norvasc #Diet: NPO DVT ppx: SCDs #Disp: cont inpatient admission for IV steroid, neuro monitoring Subjective: left eye swollen. Head is throbbing Objective: Vital Signs Temp Pulse Resp BP Pulse Ox 36.5 C 71 17 107/65 90 L 06/10/17 11:16 06/10/17 11:16 06/10/17 11:16 06/10/17 11:16 06/10/17 11:16 Laboratory Results 06/09/17 05:27 06/09/17 05:27 06/09/17 06/10/17 06/11/17 05:59 05:59 05:59 Intake Total 1000 100 980 Output Total 960 500 Balance 40 100 480 PT 12.2 SEC (12.0-15.0) 06/05/17 09:25 INR 0.88 (0.83-1.16) 06/05/17 09:25 - Physical Exam Constitutional: no apparent distress Eyes: other (left periorbital swelling. Surgical incision dressed) Cardiovascular: regular rate and rhythym Respiratory: no respiratory distress Gastrointestinal: normoactive bowel sounds Genitourinary: no bladder fullness Skin: warm Musculoskeletal: full muscle strength Neurologic: AAOx3, CN II-XII Intact, other (expressive aphasia) Psychiatric: interacting appropriately ICD10 Worksheet Patient Problems: Problems Problem Status Onset Aphasia Acute Brain tumor Acute
[2017-06-10] MEDS: MELATONIN 3 MG TAB PO SCH (20:31)
[2017-06-10] MEDS: CITALOPRAM 20 MG TAB PO SCH (20:31)
[2017-06-11] MEDS: DEXAMETHASONE 4 MG TAB PO SCH ×3 (05:26→21:15)
[2017-06-11] MEDS: ACETAMINOPHEN 325 MG TAB PO PRN ×2 (06:33→14:21)
[2017-06-11] MEDS: TRIAMTERENE/HCTZ 37.5/25 1 EACH TAB PO SCH (08:58)
[2017-06-11] MEDS: levETIRAcetam 500 MG TAB PO SCH ×2 (08:58→21:15)
[2017-06-11] MEDS: SENNOSIDES/DOCUSATE SODIUM TAB PO SCH ×2 (08:58→21:15)
[2017-06-11] MEDS: amLODIPine BESYLATE 5 MG TAB PO SCH (08:58)
[2017-06-11] MEDS: NICOTINE 7 MG/24 HR PATCH TD SCH (08:59)
--- NOTE | 2017-06-11 10:43 | NEUSURGPN ---
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 follows all commands. - continue decadron - keppra - Post op MRI with stable post surgical changes, small area residual tumor - Patient with left eye swelling related to incisional drainage. Encourage patient to elevate HOB and place ice prn - TEDs, SCDs. Swelling improved today. -Patient able to speak clearly 1-2 words at a time, very frustrated with inability to converse -Ok to shower daily and wash hair with baby shampoo -Final path pending, will consult oncology once final - PT/OT/speech -Patient will likely need rehab, case management to eval dispo options - Discussed patient with Dr Bueno - Please call neurosurgery with any questions/concerns Subjective: Frustrated with inability to converse Objective: AAOx3 expressive aphasia No droop CN II-XII otherwise grossly intact NAD VSS follows all commands Motor 5/5 BUE/BLE (mild global weakness RUE) +LT Neuro Check Frequency: per routine Urinary Catheter in Place: No - Physician Discussed Patient with Dr.: Bueno Neurosurgery Physical Exam - Vitals, I&O, Labs I and O 06/10/17 06/11/17 06/12/17 05:59 05:59 05:59 Intake Total 100 2480 Output Total 1500 Balance 100 980 Intake: Oral (ml) 100 2480 Output: Urine (ml) 1500 Bedside Commode 1000 Toilet 500 Other: Intake Quantity Yes Yes Sufficient Number of Voids Bedside Commode 1 1 1 Toilet 1 1 Vital Signs Temp Pulse Resp BP Pulse Ox 37.1 C 63 18 102/71 96 06/11/17 07:23 06/11/17 07:23 06/11/17 07:23 06/11/17 08:58 06/11/17 07:23 Laboratory Results 06/09/17 05:27 06/09/17 05:27 ICD10 Worksheet Patient Problems: Problems Problem Status Onset Aphasia Acute Brain tumor Acute
--- NOTE | 2017-06-11 14:46 | HOSPPROG ---
Hospitalist Progress Note Assessment/Plan: #Left occipital/parietal mass -likely glioma. Repeat MRI showed small amount residual tumor. Path pending -s/p craniotomy and resection 06/08. IV steroids. -cont PT/OT/SPL #Left periorbital swelling: due to incisional drainage #Aphasia: worse today #Leukocytosis: due to steroids #Hyperglycemia: from steroids. low-dose SSI #HLD: statin #HTN: Norvasc #Diet: NPO DVT ppx: SCDs #Disp: cont inpatient admission for IV steroid, neuro monitoring Subjective: frustrated with speech Objective: Vital Signs Temp Pulse Resp BP Pulse Ox 36.9 C 79 17 107/69 91 L 06/11/17 12:00 06/11/17 12:00 06/11/17 12:00 06/11/17 12:00 06/11/17 12:00 Laboratory Results 06/09/17 05:27 06/09/17 05:27 06/10/17 06/11/17 06/12/17 05:59 05:59 05:59 Intake Total 100 2480 850 Output Total 1500 Balance 100 980 850 PT 12.2 SEC (12.0-15.0) 06/05/17 09:25 INR 0.88 (0.83-1.16) 06/05/17 09:25 - Physical Exam Constitutional: no apparent distress Eyes: PERRL Ears, Nose, Mouth, Throat: other (left periorbital swelling) Cardiovascular: regular rate and rhythym Respiratory: no respiratory distress Gastrointestinal: normoactive bowel sounds, soft, non-tender abdomen Genitourinary: no bladder fullness Skin: warm Musculoskeletal: full muscle strength Neurologic: other (expressive aphasia) Psychiatric: other (frustrated) ICD10 Worksheet Patient Problems: Problems Problem Status Onset Aphasia Acute Brain tumor Acute
[2017-06-11] MEDS: INSULIN LISPRO 100 UNIT/ML SC SCH (16:50)
[2017-06-11] MEDS: OXYCODONE/APAP 5/325 TAB PO PRN (17:14)
[2017-06-11] MEDS: CITALOPRAM 20 MG TAB PO SCH (21:15)
[2017-06-11] MEDS: MELATONIN 3 MG TAB PO SCH (21:15)
[2017-06-12] MEDS: DEXAMETHASONE 4 MG TAB PO SCH ×3 (05:28→21:05)
[2017-06-12] MEDS: INSULIN LISPRO 100 UNIT/ML SC SCH ×3 (08:19→19:13)
[2017-06-12] MEDS: levETIRAcetam 500 MG TAB PO SCH ×2 (08:20→21:05)
[2017-06-12] MEDS: NICOTINE 7 MG/24 HR PATCH TD SCH (08:21)
[2017-06-12] MEDS: amLODIPine BESYLATE 5 MG TAB PO SCH (08:21)
[2017-06-12] MEDS: SENNOSIDES/DOCUSATE SODIUM TAB PO SCH ×2 (08:22→21:06)
[2017-06-12] MEDS: TRIAMTERENE/HCTZ 37.5/25 1 EACH TAB PO SCH (08:22)
--- NOTE | 2017-06-12 08:56 | HOSPPROG ---
Hospitalist Progress Note Assessment/Plan: 61 yo F presenting with aphasia and headache found to have left occipital/ parietal mass now s/p resection #Left occipital/parietal mass -likely glioma. Repeat MRI showed small amount residual tumor. Path pending -s/p craniotomy and resection. 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 low-dose SSI #HLD: statin #HTN: Norvasc #Diet: NPO DVT ppx: SCDs #Disp: cont inpatient admission Patient new to my care. Old records reviewed and summarized as above. Subjective: no significant overnight events,patient asking for 'dental floss' Objective: Vital Signs Temp Pulse Resp BP Pulse Ox 36.4 C 68 16 127/73 H 90 L 06/12/17 04:00 06/12/17 04:00 06/12/17 04:00 06/12/17 04:00 06/12/17 04:00 Laboratory Results 06/09/17 05:27 06/09/17 05:27 06/11/17 06/12/17 06/13/17 05:59 05:59 05:59 Intake Total 2480 1630 Output Total 1500 Balance 980 1630 PT 12.2 SEC (12.0-15.0) 06/05/17 09:25 INR 0.88 (0.83-1.16) 06/05/17 09:25 awake alert anicteric, bruising over left eye op clear rrr no mrg cta b soft nt nd no cce warm dry well perfused expressive aphasia ICD10 Worksheet Patient Problems: Problems Problem Status Onset Brain tumor Acute Aphasia Acute
--- NOTE | 2017-06-12 09:24 | NEUSURGPN ---
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 follows all commands. - continue decadron taper - Continue keppra - Post op MRI with stable post surgical changes, small area residual tumor - Patient with left eye swelling related to incisional drainage. Encourage patient to elevate HOB and place ice prn - DVT prophx: TEDs, SCDs. -Patient able to speak clearly 1-2 words at a time, -Final path pending, will consult oncology once final (can be done as outpatient - PT/OT/speech -Patient will likely need rehab, case management to eval dispo options ([facility]?) - Discussed patient with Dr Bueno - Please call neurosurgery with any questions/concerns Subjective: Denies ant pain, nausea Objective: NAD alert and oriented, speech limited to 1-2 words clearly. Incision c/d/i. MAEx4 5/5 and equal in BUE and BLE. - Physician Discussed Patient with Dr.: Bueno Neurosurgery Physical Exam - Vitals, I&O, Labs I and O 06/11/17 06/12/17 06/13/17 05:59 05:59 05:59 Intake Total 2480 1630 Output Total 1500 Balance 980 1630 Intake: Oral (ml) 2480 1630 Output: Urine (ml) 1500 Bedside Commode 1000 Toilet 500 Other: Intake Quantity Yes Yes Sufficient Number of Voids Bedside Commode 1 1 Toilet 1 2 Vital Signs Temp Pulse Resp BP Pulse Ox 36.4 C 68 16 127/73 H 90 L 06/12/17 04:00 06/12/17 04:00 06/12/17 04:00 06/12/17 04:00 06/12/17 04:00 Laboratory Results 06/09/17 05:27 06/09/17 05:27 ICD10 Worksheet Patient Problems: Problems Problem Status Onset Aphasia Acute Brain tumor Acute
[2017-06-12] MEDS: ACETAMINOPHEN 325 MG TAB PO PRN (14:01)
[2017-06-12] MEDS: HEPARIN 5,000 UNIT/0.5 ML SYR SC SCH ×2 (14:04→21:06)
--- NOTE | 2017-06-12 14:25 | ASMTCMCOM ---
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 CM to follow. Date Signed: 06/12/2017 02:24 PM Electronically Signed By:ANETTE Rivas
[2017-06-12] MEDS: CITALOPRAM 20 MG TAB PO SCH (21:05)
[2017-06-12] MEDS: MELATONIN 3 MG TAB PO SCH (21:05)
[2017-06-12] MEDS: OXYCODONE/APAP 5/325 TAB PO PRN (23:13)
[2017-06-13] MEDS: HEPARIN 5,000 UNIT/0.5 ML SYR SC SCH ×2 (05:35→13:37)
[2017-06-13] MEDS: INSULIN LISPRO 100 UNIT/ML SC SCH ×2 (08:14→12:47)
[2017-06-13] MEDS: NICOTINE 7 MG/24 HR PATCH TD SCH (08:33)
[2017-06-13] MEDS: SENNOSIDES/DOCUSATE SODIUM TAB PO SCH (08:34)
--- NOTE | 2017-06-13 08:34 | NEUSURGPN ---
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 follows all commands. - continue decadron taper - Continue keppra - Post op MRI with stable post surgical changes, small area residual tumor - Left eye swelling improved. - DVT prophx: TEDs, SCDs, hearing SQ -Patient able to speaking in short phrases -Oncology to see patient today, final pathology pending - PT/OT/speech -Transfer to rehab once insurance cleared - Discussed patient with Dr Bueno - Please call neurosurgery with any questions/concerns Subjective: Denies any headache, pain, nausea, speech improving Objective: NAD A&Ox3 CN II-XII grossly intact. Speaking in short phrases. MAEx4 5/5 and equal in BUE and BLE. Incision c/d/i - Physician Discussed Patient with : Myles Neurosurgery Physical Exam - Vitals, I&O, Labs I and O 06/12/17 06/13/17 06/14/17 05:59 05:59 05:59 Intake Total 1630 1950 Output Total 600 Balance 1630 1350 Intake: Oral (ml) 1630 1950 Output: Urine (ml) 600 Toilet 600 Other: Intake Quantity Yes Yes Sufficient Number of Voids Bedside Commode 1 1 Toilet 2 2 Vital Signs Temp Pulse Resp BP Pulse Ox 36.8 C 60 16 103/75 94 06/13/17 07:53 06/13/17 07:53 06/13/17 07:53 06/13/17 07:53 06/13/17 07:53 Laboratory Results 06/09/17 05:27 06/09/17 05:27 ICD10 Worksheet Patient Problems: Problems Problem Status Onset Aphasia Acute Brain tumor Acute
[2017-06-13] MEDS: levETIRAcetam 500 MG TAB PO SCH (08:35)
[2017-06-13] MEDS: amLODIPine BESYLATE 5 MG TAB PO SCH (08:36)
[2017-06-13] MEDS ORDERED: DEXAMETHASONE 4 MG TAB PO SCH (09:00)
[2017-06-13] MEDS: TRIAMTERENE/HCTZ 37.5/25 1 EACH TAB PO SCH (10:40)
[2017-06-13 12:37] VITALS: BP 121/83
--- NOTE | 2017-06-13 14:22 | HOSPPROG ---
Hospitalist Progress Note Assessment/Plan: 61 yo F presenting with aphasia and headache found to have left occipital/ parietal mass now s/p resection #Left occipital/parietal mass -likely glioma. Repeat MRI showed small amount residual tumor. Path pending -s/p craniotomy and resection. 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 low-dose SSI #HLD: statin #HTN: Norvasc #Diet: NPO DVT ppx: SCDs #Dispo: patient to transfer to rehab once insurance cleared Subjective: no significant overnight events, speech improving overnight Objective: Vital Signs Temp Pulse Resp BP Pulse Ox 37.0 C 70 16 121/83 H 94 06/13/17 12:00 06/13/17 12:00 06/13/17 12:00 06/13/17 12:00 06/13/17 12:00 Laboratory Results 06/09/17 05:27 06/09/17 05:27 06/12/17 06/13/17 06/14/17 05:59 05:59 05:59 Intake Total 1630 1950 Output Total 600 Balance 1630 1350 PT 12.2 SEC (12.0-15.0) 06/05/17 09:25 INR 0.88 (0.83-1.16) 06/05/17 09:25 awake alert anicteric, bruising over left eye op clear rrr no mrg cta b soft nt nd no cce warm dry well perfused expressive aphasia ICD10 Worksheet Patient Problems: Problems Problem Status Onset Aphasia Acute Brain tumor Acute
--- NOTE | 2017-06-13 15:37 | GCON ---
[f rep st] CONSULTATION DATE OF CONSULTATION: 06/13/2017 REFERRING PHYSICIAN: Kaleb Bueno MD REASON FOR CONSULTATION: Newly diagnosed glioblastoma multiforme. HISTORY OF PRESENT ILLNESS: Ms. 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 She presented with several weeks of intermittent word-finding difficulty. She had no history of seizures or other neurological issues. A brain MRI revealed a 3.5 cm enhancing lesion at the juncture of the left parietal occipital lobe suspicious for a high-grade glioma. She was taken to the operating room on 06/08. The preliminary pathology shows a glioblastoma multiforme. The case has been sent for review at the [facility]. MGMT hypomethylation status is pending. She developed some right arm weakness after the surgery, which is now improving a bit. She says her speech rate is improving but she still has a great deal of difficulty with word finding. She is currently on Keppra and dexamethasone. PAST MEDICAL HISTORY: Hypertension. CURRENT MEDICATIONS: Dexamethasone 4 mg q.12 and Keppra. FAMILY HISTORY: Her mother had breast cancer in her 80s. SOCIAL HISTORY: She smokes a few cigarettes per day. She drinks alcohol occasionally. 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 She lives alone in [place]. REVIEW OF SYSTEMS: Pertinent positives in HPI, a 14-point review of systems negative. EXAMINATION: VITAL SIGNS: Her temperature is 37, blood pressure 120/83, heart rate 70, oxygen saturation 94% on room air. GENERAL: In general, she was in no acute distress. HEENT: Sclerae anicteric. Oropharynx clear. NECK: Neck was supple without lymphadenopathy. LUNGS: Clear to auscultation bilaterally. CARDIAC EXAMINATION: Regular rate and rhythm. No murmurs, gallops, or rubs. ABDOMEN: Normoactive bowel sounds. Nontender. EXTREMITIES: Without edema. SKIN: No petechiae or purpura. NEUROLOGIC: She is alert and oriented x3. She had significant expressive aphasia with difficulty finding simple words and also some neologisms. LABORATORY: Comprehensive metabolic panel on admission and CBC were normal. IMPRESSION: This is a 61-year-old woman with a newly diagnosed glioblastoma. She has had an optimal resection. This unfortunately is a disease that typically recurs and the median overall survival at 2 years is approximately 25% . Standard therapy to delay relapse and improve overall survival consists of a combination radiation and oral chemotherapy with Temodar. We briefly discussed the treatment schedule and some of the side effects. She will be going to rehab , but once she is discharged from that, I will arrange to see her in clinic and we can get started as soon as possible with radiation and Temodar. If she does have MGMT hypermethylation, she would be eligible for a clinical trial which looks at adding an experimental medication called veliparib to standard Temodar therapy. Because she lives alone and is not going to be at work and has expressive aphasia, she is going to have fairly high nonmedical needs. I left a message for our file machine operator, Alma Delia Wolfe, to speak with her to see what additional support we can provide. Thank you for this consultation. It was a pleasure meeting Ms. Rossi, and I will look forward to seeing her in clinic after discharge. /[id number]/MODL MTDD
--- NOTE | 2017-06-13 16:16 | PDDCSUM ---
Discharge Summary Discharge Summary: Dates of service 06/05-06/13/17 Consultations: neurosurgery, oncology Procedures performed: brain mri x 2, craniotomy and tumor resection Hospital course by problem: 61 yo F presenting with aphasia and headache found to have left occipital/ parietal mass now s/p resection #Left occipital/parietal mass--glioblastoma multiforme -found to be GBM. Repeat MRI showed small amount residual tumor. -s/p craniotomy and resection. 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 low-dose SSI #HLD: statin #HTN: Norvasc #Diet: NPO DC to IP rehab > 35 min spent in dc of patient more than half in coordination of care Items for follow up: --final treatment plan for newly diagnosed glioblastoma multiforme per Dr. Cadet
--- NOTE | 2017-06-13 16:16 | PDIAF ---
- Diagnosis Code Status: Full Code - Medication Management Discharge Medications: Medications to Continue on Transfer Citalopram Hydrobromide [Celexa] 40 mg PO HS 07/15/16 [Last Taken 06/04/17] Lovastatin 20 mg PO HS 07/15/16 [Last Taken 06/04/17] Triamterene/Hydrochlorothiazid [Triamterene-Hctz 37.5-25 mg Tb] 1 each PO DAILY 07/15/16 [Last Taken 06/05/17] amLODIPine BESYLATE [Norvasc 5 mg (*)] 5 mg PO DAILY 07/15/16 [Last Taken ] Acetaminophen [Tylenol 325mg (*)] 650 mg PO Q4HRS PRN tab 06/13/17 [Last Taken Unknown] Dexamethasone [Decadron 2 MG (*)] 1 mg PO DAILY tab 06/13/17 [Last Taken Unknown] Dexamethasone [Decadron 2 MG (*)] 2 mg PO Q12 tab 06/13/17 [Last Taken Unknown] Dexamethasone [Decadron 2 MG (*)] 2 mg PO Q8 tab 06/13/17 [Last Taken Unknown] Dexamethasone [Decadron 4 MG (*)] 4 mg PO Q12 tab 06/13/17 [Last Taken Unknown] Diazepam [Valium 5 MG (*)] 2.5 - 5 mg PO QID PRN tab 06/13/17 [Last Taken Unknown] Melatonin [Melatonin 3 MG (*)] 3 mg PO HS tab 06/13/17 [Last Taken Unknown] Nicotine [Nicoderm Cq 7 mg (*)] 7 mg TD DAILY patch 06/13/17 [Last Taken Unknown] Polyethylene Glycol 3350 [Miralax 17 gm (*)] 17 gm PO DAILY PRN pkt 06/13/17 [ Last Taken Unknown] Promethazine HCl [Phenergan 25mg (*)] 12.5 - 25 mg PO Q6HRS PRN tab 06/13/17 [ Last Taken Unknown] Sennosides/Docusate Sodium [Senokot-S] 1 - 2 tab PO BID tab 06/13/17 [Last Taken Unknown] Temazepam [Restoril 15 MG (*)] 15 mg PO HS PRN cap 06/13/17 [Last Taken Unknown ] levETIRAcetam [Keppra 500 mg (*)] 750 mg PO BID tab 06/13/17 [Last Taken Unknown] oxyCODONE/APAP 5/325 [Percocet 5/325 (*)] 1 - 2 tab PO Q4HRS PRN tab 06/13/17 [ Last Taken Unknown] Discharge Medications: Refer to the Discharge Home Medication list for PRN reason. - Orders Services needed: Registered Nurse, Certified Apparatus Cleaner, Physical Therapy, Occupational Therapy, Speech Language Pathologist Diet Texture: Regular Texture Diet, Thin Liquids, Meds Whole w/Liquids - Follow Up Care Current Providers and Referrals: Lloyd Gonzalez MD [Primary Care Provider] - As per Instructions Alek Cadet MD [Medical Doctor] -
--- NOTE | 2017-06-13 16:28 | ASMTCMCOM ---
CM Note CM Note Notes: Pt medically stable for d/c to [facility] inpatient rehab, [employer] insurance auth is obtained. Pt friend Livier to transport. Orders to be obtained via [facility]. SANDRINE Escobar called report. Date Signed: 06/13/2017 04:28 PM Electronically Signed By:ANETTE Rivas
[2017-06-16] MEDS ORDERED: DEXAMETHASONE 2 MG TAB PO SCH (06:00)
[2017-06-19] MEDS ORDERED: DEXAMETHASONE 2 MG TAB PO SCH (09:00)
[2018-06-21] MEDS ORDERED: DEXAMETHASONE 2 MG TAB PO SCH (09:00)
== END 2017-06-13 17:56 | DRG 26 ==
LOC: F3N 12:29 → F2N 06-08 14:45 → F3N 06-09 17:00
PROVIDERS: ADMIT Hospitalist; ATTEND Hospitalist
PROC: 00B00ZX Excision of Brain, Open Approach, Diagnostic (ICD-10-PCS; principal; 2017-06-08 15:00)
PROC: 8E09XBZ Computer Assisted Procedure of Head and Neck Region (ICD-10-PCS; principal; 2017-06-08 15:00)
DX: C71.3 Malignant neoplasm of parietal lobe (principal); R47.01 Aphasia; R73.9 Hyperglycemia, unspecified; E78.5 Hyperlipidemia, unspecified; I10 Essential (primary) hypertension; F17.200 Nicotine dependence, unspecified, uncomplicated; F32.9 Major depressive disorder, single episode, unspecified; G47.30 Sleep apnea, unspecified; Z80.3 Family history of malignant neoplasm of breast
CPT/HCPCS: 92507-GN; 92523-GN; 92610-GN; 96374; 97112-GO; 97112-GP; 97116-GP; 97163-GP; 97167-GO; 97530-GO; 97530-GP; 97535-GO; A9585; C1713; J0171; J0690; J1100; J1580; J1644; J1650; J1815; J1885; J1953; J2704; J3010; P9041

== ENCOUNTER 2017-06-12 14:35 | Inpatient (IN) | payer OTHER ==
[2017-06-13] MEDS ORDERED: DIAZEPAM 5 MG TAB PO PRN (21:32)
[2017-06-13] MEDS ORDERED: TEMAZEPAM 15 MG CAP PO PRN (21:32)
[2017-06-13] MEDS ORDERED: PROMETHAZINE HCL 25 MG TAB PO PRN (21:32)
[2017-06-13] MEDS ORDERED: POLYETHYLENE GLYCOL 3350 17 GM PKT PO PRN (21:32)
[2017-06-13] MEDS ORDERED: levETIRAcetam 500 MG TAB PO SCH (21:45)
[2017-06-13] MEDS ORDERED: OXYCODONE/APAP 5/325 TAB ONE (21:57)
[2017-06-13] MEDS: OXYCODONE/APAP 5/325 TAB PO PRN (22:11)
[2017-06-13] MEDS: SENNOSIDES/DOCUSATE SODIUM TAB PO SCH (22:40)
[2017-06-13] MEDS: CITALOPRAM 20 MG TAB PO SCH (22:43)
[2017-06-13] MEDS: levETIRAcetam 500 MG TAB PO SCH (22:44)
[2017-06-13] MEDS: DEXAMETHASONE 4 MG TAB PO SCH (22:44)
[2017-06-13] MEDS: MELATONIN 3 MG TAB PO SCH (22:58)
[2017-06-13] MEDS: TRIAMTERENE/HCTZ 37.5/25 1 EACH TAB PO SCH (23:57)
[2017-06-14] MEDS: OXYCODONE/APAP 5/325 TAB PO PRN (05:19)
[2017-06-14] MEDS: DEXAMETHASONE 4 MG TAB PO SCH ×2 (07:51→20:57)
[2017-06-14] MEDS: SENNOSIDES/DOCUSATE SODIUM TAB PO SCH ×2 (07:52→20:58)
[2017-06-14] MEDS: levETIRAcetam 500 MG TAB PO SCH ×2 (07:53→20:58)
[2017-06-14] MEDS: PRAVASTATIN SODIUM 20 MG TAB PO SCH (07:54)
[2017-06-14] MEDS: NICOTINE 7 MG/24 HR PATCH TD SCH (07:58)
[2017-06-14] MEDS: amLODIPine BESYLATE 5 MG TAB PO SCH (08:10)
[2017-06-14 08:16] LABS: PLATELET COUNT 371 10^3/uL (150-400)
[2017-06-14] MEDS: TRIAMTERENE/HCTZ 37.5/25 1 EACH TAB PO SCH (10:01)
--- NOTE | 2017-06-14 13:17 | GHP ---
[f rep st] HISTORY AND PHYSICAL POST ADMISSION PHYSICIAN EVALUATION AND REHABILITATION TREATMENT PLAN DATE OF ADMISSION: 06/13/2017 DATE OF EVALUATION: 06/14/2017 TIME OF EVALUATION: 0935 REFERRING FACILITY: [facility] REFERRING PHYSICIAN: Dr. Stovall IMPAIRMENT GROUP: 2.1 DATE OF ONSET: 06/05/2017 CONSULTING PHYSICIAN: She was seen in consultation by Neurosurgery, Dr. Bueno. REHABLITATION DIAGNOSIS: Debility status post craniotomy and excision of left parietal/occipital glioblastoma. ETIOLOGIC DIAGNOSIS: Nontraumatic brain dysfunction. DATE OF SURGERY: 06/08/2017. HISTORY OF PRESENT ILLNESS: This patient came to the emergency department on , with progressive word-finding difficulties and a headache. She had brain imaging which showed a mass on an MRI in the left parieto-occipital junction. She underwent craniotomy and resection on 06/08/2017. She was medically stabilized and appropriate to transfer to inpatient rehabilitation. STUDIES AND LABS: CBC was essentially normal with a slightly high hematocrit on admission and on 06/09/2017, she had an elevated white blood cell count at 16 , which included 0.11 immature granulocytes, but predominantly neutrophils consistent with corticosteroid use. Coagulation studies revealed normal PT. Serum chemistry revealed elevated blood glucoses. Otherwise, renal function, electrolytes, and liver function tests were overall within normal limits. She had a slight elevation of conjugated bilirubin of no clinical significance. She had elevated blood sugar, again consistent with corticosteroid use. Troponin was negative. PRECAUTIONS: She is a fall risk and she has seizure precautions. ACTIVE COMORBIDITIES: She has no active tier 1, tier 2, or tier 3 comorbidities. PAST MEDICAL HISTORY: 1. Hypertension. 2. Dyslipidemia. 3. Depression. 4. Patent foramen ovale. PAST SURGICAL HISTORY: She has had wisdom teeth extraction. PRE-HOSPITAL MEDICATIONS: 1. Citalopram 40 mg p.o. q.h.s. 2. Aspirin 325 mg p.o. q. day. 3. Triamterene/hydrochlorothiazide 1 tab p.o. q. day. 4. Lovastatin 20 mg p.o. q.h.s. 5. EpiPen p.r.n. allergic reaction. ADMISSION MEDICATIONS: 1. Acetaminophen 650 mg p.o. q.4 hours p.r.n. 2. Amlodipine 5 mg p.o. q. day. 3. Citalopram 40 mg p.o. q.h.s. 4. Dexamethasone 4 mg p.o. q.12 hours with a progressive taper over 9 days. 5. Diazepam 2.5-5 mg p.o. q.i.d. p.r.n. spasms. 6. Levetiracetam 750 mg p.o. b.i.d. 7. Melatonin 3 mg p.o. q.h.s. 8. Nicotine patch 7 mg transdermal q. day. 9. Oxycodone/acetaminophen 1-2 tabs p.o. q.4 hours p.r.n. 10. Polyethylene glycol 17 g p.o. q. day p.r.n. 11. Pravastatin 20 mg p.o. q. day. 12. Promethazine 12.5-25 mg p.o. q.6 hours p.r.n. nausea, vomiting. 13. Senna/docusate 2 tabs p.o. b.i.d. 14. Temazepam 15 mg p.o. q.h.s. 15. Triamterene/hydrochlorothiazide 1 p.o. q. day. ALLERGIES: There are no known drug allergies. PSYCHOSOCIAL HISTORY: She reports that she lives alone in [place], but has good friends who can provide help. 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 She has no children. She has smoked for greater than 30 years, but now smokes only 2 cigarettes a day. She drinks approximately 3 beers twice a week. FAMILY HISTORY: Her mother had breast cancer and at age 85 from complications of a stroke. Her father had stroke. REVIEW OF SYSTEMS: She slept well last night. She has some headache pain. She has constipation. She denies fevers or chills, cough or dyspnea, chest pain or palpitations, nausea or vomiting, dysuria. Otherwise, a 10-point review of systems is negative. PHYSICAL EXAM: VITAL SIGNS: Blood pressure is 121/72, heart rate is 51, respiratory rate is 16, oxygen saturation is 95% on room air. Temperature is 36.4 degrees centigrade. Her weight is 81.6 kg for a body mass index of 29.1. GENERAL: This is an overweight woman sitting up in bed, dressed in hospital gown, cooperative and in no acute distress. HEENT: Extraocular movements are intact. Pupils are equal, round, reactive to light. Mucous membranes are moist. Dentition is in good condition. There are no oropharyngeal mucosal lesions. NECK: Supple. HEART: There is a regular rate and rhythm with no murmurs, rubs, or gallops. LUNGS: Clear to auscultation bilaterally. ABDOMEN : Soft, nontender, nondistended with normoactive bowel sounds and no hepatosplenomegaly. EXTREMITIES: There is no cyanosis, clubbing, or edema. Radial and dorsalis pedis pulses are 2+ bilaterally. NEUROLOGIC: She has expressive aphasia. Cranial nerves 2 through 12 are grossly intact. Motor strength is overall 5/5 bilaterally, but hand health assessment and treatment teacher and triceps are stronger on the left than on the right. She has reduced sensation to palpation on the right side of her body. Deep tendon reflexes are globally hypoactive. Plantar reflex is indeterminate bilaterally. She has very slight pronator drift on the right. [id number] is normal bilaterally. She can arise from supine to seated independently. She appears to have a right upper visual field defect. LABORATORY STUDIES: This morning, CBC showed a slightly elevated white count at 9.84 with 0.11 immature granulocytes and a predominance of monocytes. There was no anemia and no thrombocytopenia. Serum chemistry showed a low sodium at 133 and a low chloride at 94. Otherwise, renal function and electrolytes were within normal limits. Uric acid was 4.6. Serum osmolality is pending. CURRENT LEVEL OF FUNCTION per the pre-admission screen. Regarding diet, feeding , and swallowing, she required set up. She was on a regular textured diet and was eating independently. For grooming, she was up with assist. Dressing required setup and assistance. Toileting required minimal assistance. Bed mobility required contact guard assist. Toilet transfers required contact guard assist. She used a front-wheeled walker. Her balance was poor. She was able to ambulate 150 feet with contact guard assist. She had moderate expressive and receptive aphasia and she had right-sided hemineglect. On today's exam, she appears to have improved in terms of bed mobility to independent level. IMPRESSION: This is a 61-year-old woman who underwent craniotomy on 06/08/2017 and excision of a left parietal/occipital glioblastoma multiforme. She came through surgery well, but has debility including significant expressive and receptive aphasia, slight right-sided weakness, and right hemineglect versus right visual field cut. She has a history of hypertension as well as dyslipidemia. She has a history of depression, which has been well managed with citalopram. Postsurgery, she has headache pain which is being treated with oxycodone and acetaminophen. She has seizure prophylaxis with levetiracetam and she is on a dexamethasone taper. She has been participating in therapies and is appropriate for inpatient rehabilitation. Her goal is to complete a rehabilitation stay and then return home with home health care, any equipment which might be needed, and supportive services. For a safe discharge , it is expected that she will achieve modified independence with mobility and activities of daily living, that she will have improvement in her language and speech, that she will be able to do medication management, and that she will have neurologic and medication education. She will have therapy with Physical Therapy, Occupational Therapy, and Speech and Language Pathology for 60 minutes per day for each discipline on 5-7 days of the week. Her expected duration of stay is 14-17 days. It is expected that upon discharge, she will continue to benefit from home health services including speech and language pathology, occupational therapy, and physical therapy. PLAN: 1. Debility, status post excision of left parietal/occipital glioblastoma multiforme. PT and OT to optimize mobility and activities of daily living to the modified independence level. 2. Expressive greater than receptive aphasia to be assessed and treated per Speech and Language Pathology. 3. Glioblastoma multiforme. She will have followup with Oncology for radiation and chemotherapy after her discharge. She wanted to discuss her prognosis, which is approximately 2 years if things go well. She has sadness around this and she was informed that there is counseling available through Social Work on the unit. 4. Hypertension appears to be adequately controlled with current medications. 5. Hyponatremia, likely due to recent brain surgery. Labs are pending regarding whether this is consistent with SIADH and when lab results are available, she will either be placed on a fluid restriction or be given sodium chloride supplementation. 6. Dyslipidemia, previously on lovastatin and currently on pravastatin per hospital formulary. 7. Prophylaxis. She has already ambulated 150 feet or more; however, she does have a brain tumor which increases her risk for DVT. We will observe mobility and if it is not at high level, she will be treated with enoxaparin until her mobility improves or until her discharge home. If she is to be on enoxaparin, we will initiate GI prophylaxis, especially as she is on corticosteroids as well. Followup. Primary care provider is Lloyd Gonzalez. She will follow up with oncologist, Dr. Alek Cadet, after her discharge. Followup with Neurosurgery will be as determined by the Neurosurgery Service after her discharge. /[id number]/MODL MTDD
[2017-06-14] MEDS: ACETAMINOPHEN 325 MG TAB PO PRN ×2 (14:40→20:58)
[2017-06-14] MEDS: CITALOPRAM 20 MG TAB PO SCH (20:57)
[2017-06-14] MEDS: MELATONIN 3 MG TAB PO SCH (20:58)
[2017-06-15] MEDS: DEXAMETHASONE 4 MG TAB PO SCH ×2 (09:41→20:23)
[2017-06-15] MEDS: PRAVASTATIN SODIUM 20 MG TAB PO SCH (09:41)
[2017-06-15] MEDS: levETIRAcetam 500 MG TAB PO SCH ×2 (09:41→21:12)
[2017-06-15] MEDS: TRIAMTERENE/HCTZ 37.5/25 1 EACH TAB PO SCH (09:41)
[2017-06-15] MEDS: amLODIPine BESYLATE 5 MG TAB PO SCH (09:41)
[2017-06-15] MEDS: ACETAMINOPHEN 325 MG TAB PO PRN ×2 (09:41→18:38)
[2017-06-15] MEDS: NICOTINE 7 MG/24 HR PATCH TD SCH (09:44)
--- NOTE | 2017-06-15 11:47 | SOAPPROG ---
SOAP Progress Note Assessment/Plan: Assessment: * Debility, status post excision of left parietal/occipital glioblastoma multiforme. * Rangel balance 48/56 but PT noted LOB with transfer. * Continue PT and OT to optimize mobility and activities of daily living to the modified independence level. * Expressive greater than receptive aphasia to be assessed and treated per Speech and Language Pathology. * Glioblastoma multiforme. She will have followup with Oncology for radiation and chemotherapy after her discharge. She wanted to discuss her prognosis, which is approximately 2 years if things go well. She has sadness around this and she was informed that there is counseling available through Social Work on the unit. * Hypertension appears to be adequately controlled with current medications. * Hyponatremia, likely due to recent brain surgery. Not consistent with SIADH. Initiate salt tablets 1000 mg three times daily with meals. Recheck in a.m.. * Insomnia, likely due to corticosteroids, refractory to temazepam, and temazepam relatively contraindicated with balance impairment. Trial of trazodone tonight 06/15/2017. * Depression with possible adjustment disorder. Continue citalopram, and counseling per INJECTION MOLDING MACHINE SETTER PRN. * Dyslipidemia, previously on lovastatin and currently on pravastatin per hospital formulary. * Prophylaxis. Ambulating 150 feet or more; however, she does have a brain tumor which increases her risk for DVT. Encourage increased mobility. No anticoagulation at present. If she is to be on enoxaparin, we will initiate GI prophylaxis, especially as she is on corticosteroids as well. Followup. Primary care provider is Lloyd Gonzalez. She will follow up with oncologist, Dr. Alek Cadet, after her discharge. Followup with Neurosurgery will be as determined by the Neurosurgery Service after her discharge. 06/15/17 12:10 Subjective: Complains of poor sleep last night. Thinks the dexamethasone is doing it to her. Not in pain, no cough or dyspnea, no fevers or chills. Thinks she is able to express herself better. Objective: Vital Signs Temp Pulse Resp BP Pulse Ox 36.7 C 57 L 16 118/77 96 06/15/17 08:00 06/15/17 08:00 06/15/17 08:00 06/15/17 08:00 06/15/17 08:00 Laboratory Results 06/14/17 05:30 06/14/17 05:30 06/14/17 06/15/1706/16/18 05:59 05:59 05:59 Intake Total 300 1120 120 Output Total 2600 500 Balance 300 -1940 -432 Physical Exam - Physical Exam General Appearance: WD/WN, alert, no apparent distress Respiratory: normal breath sounds, No crackles, No rhonchi, No wheezing Cardiac/Chest: regular rate, rhythm, No edema, No diastolic murmur, No systolic murmur Skin: normal color, warm/dry Neuro/Psych: alert, normal mood/affect, oriented x 3, speech abnormalities ( Expressive aphasia) ICD10 Worksheet Patient Problems: Problems Problem Status Onset Aphasia Acute Brain tumor Acute
[2017-06-15] MEDS ORDERED: ZOLPIDEM TARTRATE 5 MG TAB PO PRN (12:04)
[2017-06-15] MEDS: SENNOSIDES/DOCUSATE SODIUM TAB PO SCH ×2 (12:32→21:12)
--- NOTE | 2017-06-15 12:45 | PDOREHIP ---
Admission LOCATED WITHIN [facility] - Admission - 3 Day Assessment Period Admission Date/Day 1: 06/13/17 Day 2: 06/14/17 Day 3: 06/15/17 - Active Diagnoses Comorbidities and Co-existing Conditions at Admission: 40362. None of the Above - Skin Conditions Unhealed Pressure Ulcer (1 or more/Stage 1 or >)-Admission: 0. No
[2017-06-15] MEDS: SODIUM CHLORIDE 1,000 MG TAB PO SCH (18:29)
[2017-06-15] MEDS ORDERED: traZODone 50 MG TAB PO SCH (21:00)
[2017-06-15] MEDS: MELATONIN 3 MG TAB PO SCH (21:12)
[2017-06-15] MEDS: CITALOPRAM 20 MG TAB PO SCH (21:14)
[2017-06-16] MEDS: ACETAMINOPHEN 325 MG TAB PO PRN ×2 (06:15→21:10)
[2017-06-16] MEDS: levETIRAcetam 500 MG TAB PO SCH ×2 (10:25→21:04)
[2017-06-16] MEDS: DEXAMETHASONE 2 MG TAB PO SCH ×3 (10:27→21:11)
[2017-06-16] MEDS: amLODIPine BESYLATE 5 MG TAB PO SCH (10:27)
[2017-06-16] MEDS: TRIAMTERENE/HCTZ 37.5/25 1 EACH TAB PO SCH (10:28)
[2017-06-16] MEDS: SODIUM CHLORIDE 1,000 MG TAB PO SCH ×3 (10:29→21:38)
[2017-06-16] MEDS: PRAVASTATIN SODIUM 20 MG TAB PO SCH (10:31)
[2017-06-16] MEDS: SENNOSIDES/DOCUSATE SODIUM TAB PO SCH ×2 (10:32→21:03)
[2017-06-16] MEDS: NICOTINE 7 MG/24 HR PATCH TD SCH (10:33)
[2017-06-16] MEDS: OXYCODONE/APAP 5/325 TAB PO PRN (11:56)
--- NOTE | 2017-06-16 14:10 | SOAPPROG ---
SOAP Progress Note Assessment/Plan: Assessment: * Debility, status post excision of left parietal/occipital glioblastoma multiforme. * Initial functional independence measure is 96 on 06/16/2017. Independent in her room starting today, 06/16/2017. Ambulated 500 ft with tracking pole and supervision climbed 18 stairs with standby assist. Supervision level for activities of daily living except bath transfer required standby assist. Decreased proprioception with the right upper extremity. Rangel balance 48/56 but PT noted LOB with transfer. * Continue PT and OT to optimize mobility and activities of daily living to the modified independence level. * Expressive greater than receptive aphasia. * Expressive aphasia is severe, receptive aphasia is [id number]. Also noted memory and problem solving deficits. * Continue Speech and Language Pathology. * Insomnia, likely due to corticosteroids, refractory trazodone 06/15/2017. * Temazepam at 15 mg at HS was not effective. She reports that 30 mg at HS was helpful in the hospital. Will start temazepam 30 mg at bedtime p.r.n. 2017. * Glioblastoma multiforme. She will have followup with Oncology for radiation and chemotherapy after her discharge. She wanted to discuss her prognosis, which is approximately 2 years if things go well. She has sadness around this and she was informed that there is counseling available through Social Work on the unit. * Hypertension appears to be adequately controlled with current medications. * Hyponatremia, likely due to recent brain surgery. Not consistent with SIADH. Initiate salt tablets 1000 mg three times daily with meals. Recheck in a.m.. * Depression with possible adjustment disorder. Continue citalopram, and counseling per HEALTH ASSESSMENT AND TREATMENT TEACHER PRN. * Dyslipidemia, previously on lovastatin and currently on pravastatin per hospital formulary. * Prophylaxis. Ambulating 150 feet or more; however, she does have a brain tumor which increases her risk for DVT. Encourage increased mobility. No anticoagulation at present. If she is to be on enoxaparin, we will initiate GI prophylaxis, especially as she is on corticosteroids as well. Attended staffing, 15 min. Discussed with case management, dietitian, nursing, PT, OT, SUPERVISOR TANK HOUSE. Lives alone but has many friends who can be helpful. Mobility and ADLs much improved but for safe discharge needs to be able to manage medications appointments and her finances. Discharge date set for 06/20/2017 with emphasis on [employer] between now and then. Followup. Primary care provider is Lloyd Gonzalez. She will follow up with oncologist, Dr. Alek Cadet, after her discharge. Followup with Neurosurgery will be as determined by the Neurosurgery Service after her discharge. 06/16/17 14:05 Subjective: Poor sleep overnight. Trazodone was not helpful. Complains of headache today. She reports that the higher dose of temazepam was more helpful while she was in the hospital. Objective: Vital Signs Temp Pulse Resp BP Pulse Ox 37.7 C 70 12 108/68 94 06/16/17 08:00 06/16/17 08:00 06/16/17 08:00 06/16/17 08:00 06/16/17 08:00 Laboratory Results 06/14/17 05:30 06/16/17 06:15 06/15/17 06/16/17 06/17/17 05:59 05:59 05:59 Intake Total 1120 2220 Output Total 2600 500 Balance -1480 1720 - Time Spent With Patient Time Spent With Patient: Greater than 35 min floor time today, including more than 50% of time in coordination of care during staffing meeting, and counseling patient. Physical Exam - Physical Exam General Appearance: WD/WN, alert, no apparent distress Respiratory: No respiratory distress, No accessory muscle use Skin: normal color, warm/dry Neuro/Psych: alert, normal mood/affect, speech abnormalities (Expressive aphasia ) ICD10 Worksheet Patient Problems: Problems Problem Status Onset Aphasia Acute Brain tumor Acute
[2017-06-16] MEDS: CITALOPRAM 20 MG TAB PO SCH (21:04)
[2017-06-16] MEDS ORDERED: DEXAMETHASONE 2 MG TAB PO SCH (22:00)
[2017-06-16] MEDS: TEMAZEPAM 15 MG CAP PO PRN (22:37)
[2017-06-17] MEDS: DEXAMETHASONE 2 MG TAB PO SCH ×3 (06:05→20:10)
[2017-06-17] MEDS: ACETAMINOPHEN 325 MG TAB PO PRN ×3 (06:07→15:02)
[2017-06-17] MEDS: POLYETHYLENE GLYCOL 3350 17 GM PKT PO SCH (08:27)
[2017-06-17] MEDS: levETIRAcetam 500 MG TAB PO SCH ×2 (08:28→20:09)
[2017-06-17] MEDS: NICOTINE 7 MG/24 HR PATCH TD SCH (08:29)
[2017-06-17] MEDS: amLODIPine BESYLATE 5 MG TAB PO SCH (08:31)
[2017-06-17] MEDS: PRAVASTATIN SODIUM 20 MG TAB PO SCH (08:31)
[2017-06-17] MEDS: TRIAMTERENE/HCTZ 37.5/25 1 EACH TAB PO SCH (08:31)
[2017-06-17] MEDS: SENNOSIDES/DOCUSATE SODIUM TAB PO SCH ×2 (08:33→20:09)
[2017-06-17] MEDS: SODIUM CHLORIDE 1,000 MG TAB PO SCH ×3 (08:33→17:42)
--- NOTE | 2017-06-17 10:40 | SOAPPROG ---
SOAP Progress Note Assessment/Plan: Assessment/Plan: * Debility, status post excision of left parietal/occipital glioblastoma multiforme. * Initial functional independence measure is 96 on 06/16/2017. Independent in her room starting today, 06/16/2017. Ambulated 500 ft with tracking pole and supervision climbed 18 stairs with standby assist. Supervision level for activities of daily living except bath transfer required standby assist. Decreased proprioception with the right upper extremity. Rangel balance 48/56 but PT noted LOB with transfer. * Continue PT and OT to optimize mobility and activities of daily living to the modified independence level. * Expressive greater than receptive aphasia. * Expressive aphasia is severe, receptive aphasia is [id number]. Also noted memory and problem solving deficits. * Continue Speech and Language Pathology. * Insomnia, likely due to corticosteroids, refractory trazodone 06/15/2017. * Temazepam at 15 mg at HS was not effective. She reports that 30 mg at HS was helpful in the hospital. Will start temazepam 30 mg at bedtime p.r.n. 2017. * Glioblastoma multiforme. She will have followup with Oncology for radiation and chemotherapy after her discharge. She wanted to discuss her prognosis, which is approximately 2 years if things go well. She has sadness around this and she was informed that there is counseling available through Social Work on the unit. * Hypertension appears to be adequately controlled with current medications. * Hyponatremia, likely due to recent brain surgery. Not consistent with SIADH. Initiate salt tablets 1000 mg three times daily with meals. * Depression with possible adjustment disorder. Continue citalopram, and counseling per SUPERVISOR TREATING AND PUMPING PRN. * Dyslipidemia, previously on lovastatin and currently on pravastatin per hospital formulary. * Prophylaxis. Ambulating 150 feet or more; however, she does have a brain tumor which increases her risk for DVT. Encourage increased mobility. No anticoagulation at present. If she is to be on enoxaparin, we will initiate GI prophylaxis, especially as she is on corticosteroids as well. Followup. Primary care provider is Lloyd Gonzalez. She will follow up with oncologist, Dr. Alek Cadet, after her discharge. Followup with Neurosurgery will be as determined by the Neurosurgery Service after her discharge. Today's Plan: Pt slept much better last night - continue current dose of tempazepam. Mood has been good and thus will continue on current dosing of her anti-depressant. Na was normal on 06/16 - will recheck on 06/1906/17/17 10:37 Subjective: No new concerns. Happy to be getting in the shower today - feeling like things are going well and starting to make good progress. no fevers/chills or other complaints with ongoing decadron taper. Objective: Vital Signs Temp Pulse Resp BP Pulse Ox 36.8 C 58 L 14 101/63 96 06/17/17 06:40 06/17/17 06:40 06/17/17 06:40 06/17/17 08:31 06/17/17 06:40 Laboratory Results 06/14/17 05:30 06/16/17 06:15 06/16/17 06/17/17 06/18/17 05:59 05:59 05:59 Intake Total 2220 400 Output Total 500 Balance 1720 400 Physical Exam - Physical Exam General Appearance: no apparent distress, other (Up at the sink brushing her teeth) Respiratory: lungs clear, normal breath sounds Cardiac/Chest: regular rate, rhythm Abdomen: non-tender, soft Skin: warm/dry Neuro/Psych: alert, other (aphasia) ICD10 Worksheet Patient Problems: Problems Problem Status Onset Aphasia Acute Brain tumor Acute
[2017-06-17] MEDS: CITALOPRAM 20 MG TAB PO SCH (20:09)
[2017-06-17] MEDS: TEMAZEPAM 15 MG CAP PO PRN (22:01)
[2017-06-18] MEDS: DEXAMETHASONE 2 MG TAB PO SCH ×3 (06:26→21:39)
[2017-06-18] MEDS: ACETAMINOPHEN 325 MG TAB PO PRN (09:25)
[2017-06-18] MEDS: POLYETHYLENE GLYCOL 3350 17 GM PKT PO SCH (09:25)
[2017-06-18] MEDS: SODIUM CHLORIDE 1,000 MG TAB PO SCH ×3 (09:26→17:48)
[2017-06-18] MEDS: levETIRAcetam 500 MG TAB PO SCH ×2 (09:27→21:37)
[2017-06-18] MEDS: PRAVASTATIN SODIUM 20 MG TAB PO SCH (09:27)
[2017-06-18] MEDS: SENNOSIDES/DOCUSATE SODIUM TAB PO SCH ×2 (09:27→21:37)
[2017-06-18] MEDS: TRIAMTERENE/HCTZ 37.5/25 1 EACH TAB PO SCH ×2 (09:28→09:36)
[2017-06-18] MEDS: amLODIPine BESYLATE 5 MG TAB PO SCH (09:32)
[2017-06-18] MEDS: NICOTINE 7 MG/24 HR PATCH TD SCH (09:49)
--- NOTE | 2017-06-18 11:19 | SOAPPROG ---
SOAP Progress Note Assessment/Plan: Assessment/Plan: * Debility, status post excision of left parietal/occipital glioblastoma multiforme. * Initial functional independence measure is 96 on 06/16/2017. Independent in her room starting today, 06/16/2017. Ambulated 500 ft with tracking pole and supervision climbed 18 stairs with standby assist. Supervision level for activities of daily living except bath transfer required standby assist. Decreased proprioception with the right upper extremity. Rangel balance 48/56 but PT noted LOB with transfer. * Continue PT and OT to optimize mobility and activities of daily living to the modified independence level. * Expressive greater than receptive aphasia. * Expressive aphasia is severe, receptive aphasia is [id number]. Also noted memory and problem solving deficits. * Continue Speech and Language Pathology. * Insomnia, likely due to corticosteroids, refractory trazodone 06/15/2017. * Temazepam at 15 mg at HS was not effective. She reports that 30 mg at HS was helpful in the hospital. Will start temazepam 30 mg at bedtime p.r.n. 2017. * Glioblastoma multiforme. She will have followup with Oncology for radiation and chemotherapy after her discharge. She wanted to discuss her prognosis, which is approximately 2 years if things go well. She has sadness around this and she was informed that there is counseling available through Social Work on the unit. * Hypertension appears to be adequately controlled with current medications. * Hyponatremia, likely due to recent brain surgery. Not consistent with SIADH. Initiate salt tablets 1000 mg three times daily with meals. * Depression with possible adjustment disorder. Continue citalopram, and counseling per GOVERNMENT CONTRACTS MANAGER PRN. * Dyslipidemia, previously on lovastatin and currently on pravastatin per hospital formulary. * Prophylaxis. Ambulating 150 feet or more; however, she does have a brain tumor which increases her risk for DVT. Encourage increased mobility. No anticoagulation at present. If she is to be on enoxaparin, we will initiate GI prophylaxis, especially as she is on corticosteroids as well. Followup. Primary care provider is Lloyd Gonzalez. She will follow up with oncologist, Dr. Alek Cadet, after her discharge. Followup with Neurosurgery will be as determined by the Neurosurgery Service after her discharge. Today's Plan: Will add zyrtec - pt reporting feelings of allergies. Mood continues to be quite stable - will continue to monitor and maintain current level of SSRI. Slept well again last night - responding well to the recent increase in the temazepam. Holding morning BP meds HCTZ/triamterine. Will give the amlodipine - Monitor and may need to consider a decrease pending BP' s. Feeling excited/nervous about her upcoming discharge 06/18/17 11:16 Subjective: Had a great night last night. Reporting that feels that her nose is getting a little stuffy like when her allergies start to kick in. No new fevers/chills. no new weakness or neurologic changes. Objective: Vital Signs Temp Pulse Resp BP Pulse Ox 37.1 C 74 14 104/82 H 95 06/18/17 08:00 06/18/17 09:33 06/18/17 08:00 06/18/17 09:36 06/18/17 08:00 Laboratory Results 06/14/17 05:30 06/16/17 06:15 06/17/17 06/18/17 06/19/17 05:59 05:59 05:59 Intake Total 400 820 240 Balance 400 820 240 Physical Exam - Physical Exam General Appearance: alert, no apparent distress EENT: other (No nasal discharge noted - oropharynx is clear) Respiratory: lungs clear, normal breath sounds Cardiac/Chest: regular rate, rhythm Abdomen: non-tender, soft Extremities: other (no LE edema) Neuro/Psych: alert, normal mood/affect, other (Aphasia ) ICD10 Worksheet Patient Problems: Problems Problem Status Onset Aphasia Acute Brain tumor Acute
[2017-06-18] MEDS: CETIRIZINE 10 MG TAB PO SCH (12:30)
[2017-06-18] MEDS: CITALOPRAM 20 MG TAB PO SCH (21:36)
[2017-06-18] MEDS: TEMAZEPAM 15 MG CAP PO PRN (21:42)
[2017-06-19] MEDS: POLYETHYLENE GLYCOL 3350 17 GM PKT PO SCH (08:05)
[2017-06-19] MEDS: CETIRIZINE 10 MG TAB PO SCH (08:05)
[2017-06-19] MEDS: TRIAMTERENE/HCTZ 37.5/25 1 EACH TAB PO SCH (08:05)
[2017-06-19] MEDS: SODIUM CHLORIDE 1,000 MG TAB PO SCH ×2 (08:05→17:55)
[2017-06-19] MEDS: SENNOSIDES/DOCUSATE SODIUM TAB PO SCH ×2 (08:06→20:42)
[2017-06-19] MEDS: PRAVASTATIN SODIUM 20 MG TAB PO SCH (08:06)
[2017-06-19] MEDS: levETIRAcetam 500 MG TAB PO SCH ×2 (08:06→20:42)
[2017-06-19] MEDS: NICOTINE 7 MG/24 HR PATCH TD SCH (08:10)
[2017-06-19] MEDS: DEXAMETHASONE 2 MG TAB PO SCH ×2 (08:11→20:41)
[2017-06-19] MEDS ORDERED: BISACODYL 10 MG SUPP PR PRN (09:28)
--- NOTE | 2017-06-19 13:06 | SOAPPROG ---
SOAP Progress Note Assessment/Plan: Assessment: * Debility, status post excision of left parietal/occipital glioblastoma multiforme. * Initial functional independence measure is 96 on 06/16/2017. Independent in her room starting 06/16/2017. Ambulated 500 ft with trekking pole and supervision; climbed 18 stairs with standby assist. Supervision level for activities of daily living except bath transfer required standby assist. Decreased proprioception with the right upper extremity. Rangel balance 48/56 but PT noted LOB with transfer. * Continue PT and OT to optimize mobility and activities of daily living to the modified independence level. * Expressive greater than receptive aphasia. * Expressive aphasia is severe, receptive aphasia is [id number]. Also noted memory and problem solving deficits. * Uses multimodal communication michelle express herself. * Continue Speech and Language Pathology. * Insomnia, likely due to corticosteroids, refractory trazodone 06/15/2017. * Temazepam at 15 mg at HS was not effective. Sleeping well with temazepam 30 mg at bedtime starting 06/16/2017. * Glioblastoma multiforme. She will have followup with Oncology for radiation and chemotherapy after her discharge. She wanted to discuss her prognosis, which is approximately 2 years if things go well. She has sadness around this and she was informed that there is counseling available through Social Work on the unit. * Hypertension appears to be adequately controlled with current medications. * Hyponatremia, likely due to recent brain surgery. Not consistent with SIADH. Initiates salt tablets 1000 mg three times daily with meals. Na normalized. Decrease to BID today 06/19/2017; recheck 06/20/2017 and taper further if Na remains normal. * Hypokalemia, minimal, on labs 06/19/2017. Ordered random urine K to evaluate further. Repeat BMP on 06/20/2017 * Depression with possible adjustment disorder. Continue citalopram, and counseling per HOUSEHOLD PERSONAL ASSISTANT PRN. * Dyslipidemia, previously on lovastatin and currently on pravastatin per hospital formulary. * Prophylaxis. Ambulating 150 feet or more; however, she does have a brain tumor which increases her risk for DVT. Encourage increased mobility. No anticoagulation at present. If she is to be on enoxaparin, we will initiate GI prophylaxis, especially as she is on corticosteroids as well. Attended family meeting, 30 min. Patient and 3 friends were in attendance. Discussed with case management, dietitian, nursing, PT, OT, SUPERVISOR DYER. Lives alone but has many friends who can be helpful. Mobility and ADLs much improved. Friend Roberto will assist in managing medications appointments and her finances. Discharge date set for 06/20/2017 with emphasis on SUPERVISOR DYER between now and then. Followup. Primary care provider is Lloyd Gonzalez. She will follow up with oncologist, Dr. Alek Cadet, after her discharge, Radiation and Oncology and Neurosurgery 06/19/17 13:00 Subjective: No complaints. Would like to know when she can drink beer. Denies pain, cough , dyspnea, fevers, chills. Objective: Vital Signs Temp Pulse Resp BP Pulse Ox 36.5 C 57 L 16 110/81 H 97 06/19/17 06:23 06/19/17 06:23 06/19/17 06:23 06/19/17 06:23 06/19/17 06:23 Laboratory Results 06/14/17 05:30 06/19/17 06:15 06/18/17 06/19/17 06/20/17 05:59 05:59 05:59 Intake Total 820 1090 Balance 820 1090 - Time Spent With Patient Time Spent With Patient: Greater than 35 min floor time today, including more than 50% of time in coordination of care and counseling during family meeting. Physical Exam - Physical Exam General Appearance: WD/WN, alert, no apparent distress Respiratory: normal breath sounds, No crackles, No rhonchi, No wheezing Cardiac/Chest: regular rate, rhythm, No edema Skin: normal color, warm/dry, other (Left parietal scalp incision with sutures, well-approximated, no discharge, no erythema.) Neuro/Psych: no motor/sensory deficits, alert, normal mood/affect, oriented x 3 , speech abnormalities (Moderate expressive aphasia) ICD10 Worksheet Patient Problems: Problems Problem Status Onset Aphasia Acute Brain tumor Acute
[2017-06-19] MEDS: ACETAMINOPHEN 325 MG TAB PO PRN ×2 (13:38→22:36)
--- NOTE | 2017-06-19 14:17 | PDOREHIP ---
Admission [facility] - Admission - 3 Day Assessment Period Admission Date/Day 1: 06/13/17 Day 2: 06/14/17 Day 3: 06/15/17 Discharge [facility] - Discharge - 3 Day Assessment Period 2 Days Prior to Anticipated Discharge Date: 06/18/17 1 Day Prior to Anticipated Discharge Date: 06/19/17 Anticipated Discharge Date: 06/20/17 - Discharge Skin Conditions Unhealed Pressure Ulcer (1 or more/Stage 1 or >)-Discharge: 0. No
[2017-06-19] MEDS: CITALOPRAM 20 MG TAB PO SCH (20:41)
[2017-06-19] MEDS: TEMAZEPAM 15 MG CAP PO PRN (22:36)
[2017-06-20] MEDS: ACETAMINOPHEN 325 MG TAB PO PRN (05:01)
[2017-06-20 06:31] VITALS: BP 109/63
[2017-06-20] MEDS: TRIAMTERENE/HCTZ 37.5/25 1 EACH TAB PO SCH (08:08)
[2017-06-20] MEDS: levETIRAcetam 500 MG TAB PO SCH (08:09)
[2017-06-20] MEDS: SENNOSIDES/DOCUSATE SODIUM TAB PO SCH (08:10)
[2017-06-20] MEDS: PRAVASTATIN SODIUM 20 MG TAB PO SCH (08:10)
[2017-06-20] MEDS: DEXAMETHASONE 2 MG TAB PO SCH (08:10)
[2017-06-20] MEDS: SODIUM CHLORIDE 1,000 MG TAB PO SCH (08:11)
[2017-06-20] MEDS: CETIRIZINE 10 MG TAB PO SCH (08:11)
[2017-06-20] MEDS: NICOTINE 7 MG/24 HR PATCH TD SCH (08:19)
[2017-06-20] MEDS: POLYETHYLENE GLYCOL 3350 17 GM PKT PO SCH (08:20)
--- NOTE | 2017-06-20 17:32 | GDS ---
[f rep st] DISCHARGE SUMMARY ADMITTING DIAGNOSIS: Debility, status post craniotomy and resection of glioblastoma multiforme. DISCHARGE DIAGNOSIS: Debility, status post craniotomy and resection of glioblastoma multiforme. OTHER DISCHARGE DIAGNOSES: 1. Expressive aphasia. 2. Insomnia. 3. Hyponatremia and hypokalemia. COMPLICATIONS: There were none. CONSULTATIONS: There were none. PROCEDURES: There were none. HISTORY AND HOSPITAL COURSE: This patient was admitted from [facility] where she had undergone resection of a glioblastoma in the left parietal/occipital lobe. She had expressive aphasia. She had good mobility initially. Her functional independence measure on 2017, was 96, which is consistent with assisted living level of function. She was made independent in her room on 06/16/2017. She was able to ambulate 500 feet with trekking poles and supervision. She climbed 18 stairs with standby assist. She was at supervision level for activities of daily living, except she required standby assist for bath transfer. She was noted to have decreased proprioception in the right upper extremity. She had expressive aphasia much more so than receptive aphasia, and was also noted to have memory and problem-solving deficits. She had therapy with Speech and Language Pathology, which was the main emphasis of her therapy during her stay. She had some improvement and especially with learning how to use multimodal communication to express herself including writing a word or part of a word in order to help her find the word as she could write better than she could speak, or to show the people with whom she was trying to communicate the word that she was seeking. She had insomnia which was likely due to the dexamethasone taper that she was on post surgically. Trazodone was not helpful. Temazepam at 15 mg q.h.s. was not effective. Temazepam was increased to 30 mg q.h.s., and she had good sleep after that. She was found to have hyponatremia. She had a low urine osmolality, so it was not considered consistent with SIADH. She was treated with salt tablets 1000 mg 3 times a day. Her sodium normalized. Sodium chloride was decreased to b.i.d. on 06/19/2016. She had a repeat basic metabolic profile on 06/20, which showed a low sodium again at 134. Additionally, she had hypokalemia with a potassium of 3.3. On discharge, it was suggested that she discontinue her Maxzide combination diuretic tablet as it might be promoting hyponatremia and potentially involved in hypokalemia, and she should have followup labs with her primary care physician. There was a family meeting held with the patient and 3 friends including friend Roberto, who will be giving her direct assistance. It was advised that she have help for critical tasks such as managing medications, appointments and finances. OTHER LABORATORIES AND STUDIES: During her stay, urine potassium was 11.4, implicating that the hypokalemia was not related to urinary potassium loss. Hematology was overall normal, but she had an elevated white blood cell count with a slight left shift and 0.11 immature granulocytes, but most likely consistent with corticosteroid therapy. CONDITION UPON DISCHARGE: Good. DIET: Regular. ACTIVITY: Ad lilian but she should not be driving. MEDICATIONS ON DISCHARGE: 1. Amlodipine 2.5 mg p.o. daily. 2. Cetirizine 10 mg p.o. daily. 3. Citalopram 40 mg p.o. q.h.s. 4. Dexamethasone 2 mg q.12 on the day of discharge, followed by 1 mg daily for 2 more days, and then discontinue. 5. Levetiracetam 750 mg p.o. b.i.d. 6. Nicotine patch. 7. Pravastatin 20 mg p.o. daily. 8. Sodium chloride 1000 mg p.o. b.i.d. 9. Temazepam 30 mg p.o. q.h.s. ISSUES TO BE ADDRESSED AT FOLLOWUP: 1. Glioblastoma multiforme. She has followups scheduled with oncologist Dr. Cadet on 06/27/2017, with radiation oncologist Dr. Koroma, and with neurosurgeon, Dr. Kaleb Bueno on 06/22/2017. 2. Functional status and expressive aphasia. She will continue to have occupational therapy and speech and language pathology on an outpatient basis, and she can follow up with her primary care provider, Dr. Gonzalez, regarding those issues. 3. Hyponatremia and hypokalemia. She should discontinue Maxzide and she should have followup blood testing most likely per Dr. Gonzalez. 4. Hypertension should be monitored as she has discontinued the Maxzide. 5. Insomnia. It is expected that this will resolve once she is completed her dexamethasone taper, and she can follow up with Dr. Gonzalez. /[id number]/MODL MTDD
[2017-06-21] MEDS ORDERED: DEXAMETHASONE 2 MG TAB PO SCH (09:00)
== END 2017-06-20 11:04 | disposition home or self-care (01) | DRG 949 ==
LOC: BREH 06-13 18:06
PROVIDERS: ADMIT Internal Medicine; ATTEND Internal Medicine
PROC: F08Z7ZZ Vocational Activities and Functional Community or Work Reintegration Skills Treatment (ICD-10-PCS; principal; 2017-06-13)
PROC: F07M3ZZ Motor Function Treatment of Musculoskeletal System - Whole Body (ICD-10-PCS; principal; 2017-06-13)
PROC: F0636ZZ Communicative/Cognitive Integration Skills Treatment of Neurological System - Whole Body (ICD-10-PCS; principal; 2017-06-13)
DX: Z48.811 Encounter for surgical aftercare following surgery on the nervous system (principal); C71.3 Malignant neoplasm of parietal lobe; R47.01 Aphasia; I10 Essential (primary) hypertension; E87.1 Hypo-osmolality and hyponatremia; E78.5 Hyperlipidemia, unspecified; Z72.0 Tobacco use; Z80.3 Family history of malignant neoplasm of breast; G47.00 Insomnia, unspecified
CPT/HCPCS: 92507-GN; 92522-GN; 97110-GO; 97110-GP; 97112-GO; 97112-GP; 97116-GP; 97162-GP; 97166-GO; 97530-GO; 97530-GP; 97535-GO; 99366-GO; G0515-GO

== ENCOUNTER 2017-11-07 12:45 | Inpatient (IN) | payer MEDICAID ==
--- NOTE | 2017-11-07 13:13 | EDPHY ---
H & P Stated Complaint: R leg weakeness, h/o brain cancer, post chemo treatment Time Seen by Provider: 11/07/17 13:13 HPI/ROS: CHIEF COMPLAINT: Reported right leg weakness, history of GBM HISTORY OF PRESENT ILLNESS: Patient is brought in by EMS from [place], [place]. History from EMS is the patient reportedly had fell 2 days ago and has developed increased right leg weakness since that time. The patient has a fairly significant chronic expressive aphasia and is unable to tell me that this is her chief complaint. She does report that she fell 2 days ago. She denies any acute headache. She denies acute right leg weakness. She is unable to articulate her reason for coming to the emergency department today. In reviewing her records she appears to have undergone a resection of a GBM with radiation treat. REVIEW OF SYSTEMS: A comprehensive 10 point review of systems is unobtainable secondary to her chronic expressive aphasia Source: Patient - Personal History Current Tetanus/Diphtheria Vaccine: Unsure Current Tetanus Diphtheria and Acellular Pertussis (TDAP): Unsure - Medical/Surgical History Hx Asthma: No Hx Chronic Respiratory Disease: No Hx Diabetes: Yes Hx Cardiac Disease: Yes Hx Renal Disease: No Hx Cirrhosis: No Hx Alcoholism: No Hx HIV/AIDS: No Hx Splenectomy or Spleen Trauma: No Other PMH: HTN, Hyperlipidema, depression, PFO discovered 1 year ago, brain cancer - Social History Smoking Status: Light smoker - Physical Exam Exam: General Appearance: Alert, no distress Eyes: Pupils equal and round no pallor or injection ENT, Mouth: Mucous membranes moist Respiratory: There are no retractions, lungs are clear to auscultation Cardiovascular: Regular rate and rhythm Gastrointestinal: Abdomen is soft and nontender, no masses, bowel sounds normal Neurological: Alert and oriented x2, 5/5 strength all 4 extremities, slow finger to nose, mild dysarthria and significant expressive aphasia Skin: Warm and dry, no rashes Musculoskeletal: Neck is supple nontender Extremities: symmetrical, full range of motion Constitutional: Initial Vital Signs Temperature (C) 37.3 C 11/07/17 12:45 Heart Rate 78 11/07/17 12:45 Respiratory Rate 16 11/07/17 12:45 Blood Pressure 122/87 H 11/07/17 12:45 O2 Sat (%) 98 11/07/17 12:45 O2 Delivery Mode Room Air Allergies/Adverse Reactions: No Known Allergies Allergy (Verified 06/24/17 16:24) Home Medications: Medication Instructions Recorded Acetaminophen [Tylenol 325mg (*)] 650 mg PO Q4HRS PRN tab 06/13/17 Cetirizine [ZyrTEC 10 mg (*)] 10 mg PO DAILY tab 06/19/17 Citalopram Hydrobromide [Celexa] 40 mg PO HS #30 tablet 06/19/17 Lovastatin 20 mg PO HS #30 tablet 06/19/17 Temazepam [Restoril 15 MG (*)] 30 mg PO HS PRN #10 cap 06/19/17 Triamterene/Hydrochlorothiazid 1 each PO DAILY #30 tablet 06/19/17 [Triamterene-Hctz 37.5-25 mg Tb] amLODIPine BESYLATE [Norvasc 2.5 2.5 mg PO DAILY #30 tab 06/19/17 mg (*)] levETIRAcetam [Keppra 500 mg (*)] 750 mg PO BID #90 tab 06/19/17 Temozolomide [Temodar] 10 mg PO AD 11/07/17 Temozolomide [Temodar] 280 mg PO AD 11/07/17 Medical Decision Making - Diagnostics Imaging Results: Imaging Impressions Head CT 11/07/17 13:21 Impression: Increased vasogenic edema, with limited assessment of the patient's resection bed on this unenhanced study, with equivocal new/recurrent mass along the inferior aspect of the resection bed. MR brain with contrast would be useful for further evaluation if this has not been recently assessed at an outside facility. Findings discussed with Dr. Flip Andujar on 11/07/2017 at 13:53. CT head without contrast: Increasing vasogenic edema in area of prior GBM suggestive of worsening disease. Radiologist recommends follow-up MRI with and without contrast. ED Course/Re-evaluation: The patient presents to the ED for presumable weakness and failure to thrive in the setting of a known GBM diagnosis. The patient was noted to be grossly intact aside from a fairly significant aphasia. She was taken for noncontrast head CT scan which demonstrated no evidence of hemorrhage but did demonstrate increasing vasogenic edema. The patient was treated with 10 mg of Decadron. She was also noted to be hypokalemic. This was treated with oral and IV potassium supplementation. I spoke with the patient's primary oncologist Dr. Cadet who recommends admission to the hospital, formal brain MRI and likely Decadron treatment. Consultation was made with Dr. Cline from the hospitalist service at 2:20 p.m. He will admit the patient for further evaluation and management. MRI of the brain has been ordered. Differential Diagnosis: Differential diagnosis considered includes worsening MANAGER STRATEGIC disease, intracranial hemorrhage, dehydration, metabolic abnormality - Data Points Laboratory Results: Laboratory Results 11/07/17 12:45 11/07/17 12:45 11/07/17 11/07/17 11/07/17 12:45 12:45 12:45 WBC 2.21 10^3/uL L 10^3/uL (3.80-9.50) RBC 3.66 10^6/uL L 10^6/uL (4.18-5.33) Hgb 12.7 g/dL g/dL (12.6-16.3) Hct 35.4 % L % (38.0-47.0) MCV 96.7 fL fL (81.5-99.8) MCH 34.7 pg H pg (27.9-34.1) MCHC 35.9 g/dL g/dL (32.4-36.7) RDW 12.4 % % (11.5-15.2) Plt Count 31 10^3/uL L 10^3/uL (150-400) MPV 11.6 fL fL (8.7-11.7) Neut % (Auto) 60.2 % % (39.3-74.2) Lymph % (Auto) 31.2 % % (15.0-45.0) Island % (Auto) 7.7 % % (4.5-13.0) Eos % (Auto) 0.9 % % (0.6-7.6) Baso % (Auto) 0.0 % L % (0.3-1.7) Nucleat RBC Rel Count 0.0 % % (0.0-0.2) Absolute Neuts (auto) 1.33 10^3/uL L 10^3/uL (1.70-6.50) Absolute Lymphs (auto) 0.69 10^3/uL L 10^3/uL (1.00-3.00) Absolute Monos (auto) 0.17 10^3/uL L 10^3/uL (0.30-0.80) Absolute Eos (auto) 0.02 10^3/uL L 10^3/uL (0.03-0.40) Absolute Basos (auto) 0.00 10^3/uL L 10^3/uL (0.02-0.10) Absolute Nucleated RBC 0.00 10^3/uL 10^3/uL (0-0.01) Immature Gran % 0.0 % % (0.0-1.1) Immature Gran # 0.00 10^3/uL 10^3/uL (0.00-0.10) Platelet Estimate DECREASED L (ADEQ) Sodium 136 mEq/L mEq/L (135-145) Potassium 2.7 mEq/L L* mEq/L (3.3-5.0) Chloride 100 mEq/L mEq/L (97-110) Carbon Dioxide 24 mEq/l mEq/l (22-31) Anion Gap 12 mEq/L mEq/L (8-16) BUN 10 mg/dL mg/dL (7-23) Creatinine 0.8 mg/dL mg/dL (0.6-1.0) Estimated GFR > 60 Glucose 88 mg/dL mg/dL (70-100) Calcium 9.6 mg/dL mg/dL (8.5-10.4) Magnesium 2.2 mg/dL mg/dL (1.6-2.3) Medications Given: Discontinued Medications Dexamethasone (Decadron Injection) 10 mg IVP EDNOW ONE Stop: 11/07/17 14:15 Last Admin: 11/07/17 14:17 Dose: 10 mg Potassium Chloride (Potassium Cl 10 Meq (Premix)) 100 mls @ 100 mls/hr IV Q1H RENA Stop: 11/07/17 15:59 Last Admin: 11/07/17 15:38 Dose: 100 mls Potassium Chloride (Klor Packets) 40 meq PO EDNOW ONE Stop: 11/07/17 13:52 Last Admin: 11/07/17 14:22 Dose: Not Given Potassium Chloride (Klor-Con) 40 meq PO EDNOW ONE Stop: 11/07/17 14:04 Last Admin: 11/07/17 14:11 Dose: 40 meq Departure - Departure Disposition: [facility] In[facility] Acute Clinical Impression: Brain tumor, Aphasia, Hypokalemia, Thrombocytopenia Condition: Fair
[2017-11-07 13:39] LABS: PLATELET COUNT 31 10^3/uL (150-400)
[2017-11-07] MEDS ORDERED: POTASSIUM CL 20 MEQ PKT PO ONE (13:51)
[2017-11-07] MEDS ORDERED: POTASSIUM CL 20 MEQ TAB PO ONE (14:03)
[2017-11-07] MEDS ORDERED: DEXAMETHASONE 10 MG/ML VIAL IVP ONE (14:14)
[2017-11-07] MEDS: POTASSIUM Cl (KCl) 100 ML IV SCH ×3 (14:15→21:59)
[2017-11-07] MEDS ORDERED: PROTOCOL MAGNESIUM 1 DOSE IV PRN (15:18)
[2017-11-07] MEDS ORDERED: ONDANSETRON 4 MG/2 ML VIAL IVP PRN (15:18)
[2017-11-07] MEDS ORDERED: ACETAMINOPHEN 325 MG TAB PO PRN (15:18)
[2017-11-07] MEDS ORDERED: PROTOCOL POTASSIUM 1 DOSE MISC PRN (15:18)
[2017-11-07] MEDS ORDERED: PROMETHAZINE HCL 25 MG/ML INJ IVP PRN (15:18)
[2017-11-07] MEDS ORDERED: TEMAZEPAM 15 MG CAP PO PRN (15:19)
[2017-11-07] MEDS ORDERED: D5W 1/2 NS W/ 20 KCl/L 1,000 ML IV SCH (15:30)
[2017-11-07] MEDS ORDERED: GADOBUTROL 10 ML VIAL IVP ONE (15:56)
--- NOTE | 2017-11-07 16:04 | GHP ---
DATE OF ADMISSION: 11/07/2017 CHIEF COMPLAINT: Fall and weakness. HISTORY OF PRESENT ILLNESS: This is a 62-year-old female with history of glioblastoma multiforme, diagnosed in June of 2017, status post resection by Dr. Bueno on 06/08/2017, and currently followed by Dr. Cadet, where she is undergoing chemotherapy, presents to the hospital today with increasing weakness and word finding difficulties. The patient had a fall 2 nights ago. She denied any injury other than some bruising. Since her fall, she has had increasing generalized weakness. She states that her legs are unable to support her and she is unable to walk without assistance. Her appetite has been poor. She denies any fevers or chills. She denies any urinary complaints. She denies any nausea, vomiting or diarrhea. PAST MEDICAL HISTORY: 1. Hospitalization 06/05/2017, where she presented with word-finding difficulties and found to have a parieto-occipital mass, subsequently diagnosed with glioblastoma multiforme, status post resection. 2. Dyslipidemia. 3. Depression. 4. History of patent foramen ovale. PAST SURGICAL HISTORY: Left parietal craniotomy for resection of left parietal subcortical high-grade glioma. HOME MEDICATIONS: Reviewed. Refer to [employer] for details. ALLERGIES: No known drug allergies. SOCIAL HISTORY: The patient lives in [place]. She has a history of tobacco use. She denies any alcohol or illicit drug use. FAMILY HISTORY: Reviewed and noncontributory. REVIEW OF SYSTEMS: Comprehensive 10-point review of systems was done and is negative except for as mentioned in HPI. PHYSICAL EXAM: VITAL SIGNS: Blood pressure 112/73, pulse of 83 respiratory rate 16, O2 saturation 98% on room air, temperature afebrile. GENERAL: No acute distress. HEAD: Normocephalic, atraumatic. EYES: PERRLA. Sclerae anicteric. MOUTH: Moist mucous membranes. NECK: Supple. No lymphadenopathy. CARDIOVASCULAR: S1, S2. No JVD. No lower extremity edema. PULMONARY: Lungs are clear. No wheezes, rales or rhonchi. ABDOMEN: Soft, nontender, nondistended. No guarding or rebound tenderness. Normoactive bowel sounds. EXTREMITIES: No clubbing or cyanosis. NEURO: Cranial nerves 2-12 grossly intact. Face is symmetric. There is no pronator drift. Muscle strength 5- out of 5 right upper extremity flexion and extension. Left upper extremity muscle strength 5/5, flexion, extension, transportation aide. Muscle strength 5/5 flexion and extension at the hip and at the foot. Sensation appears to be intact. SKIN: There is bruising over the right knee and thigh. DIAGNOSTICS: WBC is 2.21, hemoglobin 12.7, hematocrit 35.4, platelets 31. Sodium 136, potassium 2.7, chloride 100, BUN 10, creatinine 0.8, glucose 88. Head CT, which I visualized and personally interpreted as well as reviewed the report from the radiologist, showed increased vasogenic edema with equivocal new recurrent mass along the inferior aspect of the resection bed. ASSESSMENT AND PLAN: 1. This is a 62-year-old female with history of glioblastoma multiforme, status post resection in June of this year, presenting with increasing weakness as well as some word-finding difficulties, concerning for advanced disease possibly exacerbated by hypokalemia. Plan: The patient will be admitted to the medical-surgical floor. I have discussed the case with Dr. Cadet, who will see the patient in consultation. Will treat her edema with Decadron 4 mg IV q.6 hours. Her potassium will be replaced. Will check a magnesium level. 2. Hypokalemia, possibly due to anorexia. Plan: Will replace per protocol as above and encourage normal diet. 3. The patient will be admitted to the hospital under inpatient status. She is at a high risk for venous thromboembolism and will be placed on low molecular weight heparin for chemical deep venous thrombosis prophylaxis. /[id number]/MODL MTDD
[2017-11-07] MEDS: PRAVASTATIN SODIUM 20 MG TAB PO SCH (19:37)
[2017-11-07] MEDS: levETIRAcetam 250 MG TAB PO SCH (19:37)
[2017-11-07] MEDS: DEXAMETHASONE 4 MG TAB PO SCH (19:37)
[2017-11-07] MEDS: CITALOPRAM 20 MG TAB PO SCH (19:38)
[2017-11-07] MEDS ORDERED: POTASSIUM Cl (KCl) 100 ML IV SCH (22:00)
[2017-11-08] MEDS: DEXAMETHASONE 4 MG TAB PO SCH ×5 (00:16→23:56)
[2017-11-08] MEDS: POTASSIUM Cl (KCl) 100 ML IV SCH (00:16)
[2017-11-08] MEDS ORDERED: TEMOZOLOMIDE 5 MG PO SCH (09:00)
[2017-11-08] MEDS ORDERED: TEMOZOLOMIDE 140 MG PO SCH (09:00)
[2017-11-08] MEDS ORDERED: ENOXAPARIN 40 MG/0.4 ML SYR SC SCH (09:00)
[2017-11-08] MEDS: CETIRIZINE 10 MG TAB PO SCH (09:52)
[2017-11-08] MEDS: levETIRAcetam 250 MG TAB PO SCH ×2 (09:55→20:38)
--- NOTE | 2017-11-08 10:28 | PDMN ---
Medical Necessity Medical necessity: Pt meets IP criteria per MD; est los >2 mn for eval/tx of hypokalemia (K 2.7), increased vasogenic edema w/new recurrent mass, word- finding difficulties & increasing weakness w/inability to walk independently s/ p recent fall; requiring further monitoring, Oncology consult, IV Decadron, IVFs , Potassium protocol & therapies; hx glioblastoma multiforme s/p resection on chemo; per H&P & order 11/07/17
[2017-11-08] MEDS ORDERED: POTASSIUM CL 10 MEQ TAB PO ONE (10:55)
--- NOTE | 2017-11-08 16:04 | HOSPPROG ---
Hospitalist Progress Note Assessment/Plan: 62 yo F w GBM here w expressive aphasia GBM: recurrent despite resection and first line chemotherapy continue steroids entry into clinical trial vs hospice aphasia: 2/2 recurrent GBM w vasogenic edema steroids hypokalemia: repeletd weakness: multifactorial pt/ot dispo: inpt Subjective: case d/w dr alatorre Objective: Vital Signs Temp Pulse Resp BP Pulse Ox 36.7 C 78 16 107/71 94 11/08/17 15:46 11/08/17 15:46 11/08/17 15:46 11/08/17 15:46 11/08/17 15:46 Laboratory Results 11/08/17 04:04 11/07/17 11/08/17 11/09/17 05:59 05:59 05:59 Intake Total 2100 350 Output Total 350 300 Balance 1750 50 - Physical Exam Constitutional: no apparent distress, appears nourished Eyes: PERRL, anicteric sclera Ears, Nose, Mouth, Throat: moist mucous membranes, hearing normal Cardiovascular: regular rate and rhythym, no murmur, rub, or gallop Respiratory: no respiratory distress, no rales or rhonchi Gastrointestinal: normoactive bowel sounds, soft, non-tender abdomen Genitourinary: no bladder fullness, No barros in urethra Skin: warm, normal color Musculoskeletal: full muscle strength Neurologic: AAOx3, other (expressive aphasia. airline lounge receptionist intact) Psychiatric: interacting appropriately ICD10 Worksheet Patient Problems: Problems Problem Status Onset Aphasia Acute Brain tumor Acute Hypokalemia Acute Thrombocytopenia Acute
--- NOTE | 2017-11-08 16:45 | GCON ---
ONCOLOGY CONSULTATION DATE OF CONSULTATION: 11/08/2017 REFERRING PHYSICIAN: Kirit Cueva MD REASON FOR CONSULTATION: Glioblastoma multiforme. HISTORY OF PRESENT ILLNESS: Ms. Rossi is a 62-year-old woman diagnosed with a left parietooccipital GBM in June of this year when she presented with several weeks of word-finding difficulty. She had a gross total resection 06/08/2017. Pathology demonstrated MGMT negative disease. She completed a course of postoperative Temodar plus radiation, completed 08/16/2017. She has been receiving adjuvant monthly Temodar (150 mg/m2 days 1 to 5). I believe she has received 2 cycles. The history is somewhat difficult to obtain due to her severe word-finding difficulty. She presented to the ER with increasing weakness, word-finding difficulties, and a fall 2 days prior. Brain MRI yesterday compared with June 2017 demonstrated a 4.2 x 4 cm peripheral ring- enhancing lesion in the posterior aspect of the left frontal lobe with central necrosis and associated edema. The post-surgical area previously measured 2.6 x 2.6 cm. Left frontoparietal edema extends 9.5 cm with some midline shift and subfalcine herniation (5 mm). She was started on high-dose steroids (4 mg every 6 hours). This morning, it is difficult to tell if she feels any better. It seems her word-finding difficulty is about the same. She reports being ambulatory at home. Her significant other, Roberto, is not present currently. She reports having an increased headache prior to admission. PAST MEDICAL HISTORY: 1. GBM as above. 2. Dyslipidemia. 3. Depression. 4. History of PFO. PAST SURGICAL HISTORY: As above. OUTPATIENT MEDICATIONS: Amlodipine 2.5 mg daily, Keppra 750 mg b.i.d., pravastatin 20 mg at bedtime, Zofran p.r.n. She was recently on Bactrim-DS for a UTI. ALLERGIES: No known drug allergies. SOCIAL HISTORY: She lives with a significant other, Roberto. No alcohol. History of tobacco use. FAMILY HISTORY: Noncontributory. REVIEW OF SYSTEMS: CONSTITUTIONAL: No fever or chills. HEENT: No vision changes. No mucositis. RESPIRATORY: No cough or dyspnea. CARDIOVASCULAR: No chest pain or lower extremity edema. GI: No nausea or vomiting. NEUROLOGIC : Per HPI. PHYSICAL EXAM: VITAL SIGNS: Blood pressure 103/75, heart rate 68, respirations 16, 96% on room air, afebrile. GENERAL: Pleasant woman in no acute distress. She does have expressive aphasia and word-finding difficulty. She appears to comprehend well. HEENT: No scleral icterus. CARDIOVASCULAR: No pretibial edema. LUNGS: Breathing comfortably. ABDOMEN: Soft, nontender. NEUROLOGIC: As above. Mild right-sided weakness. LABORATORY DATA: WBC 2.2, ANC 1.3, hemoglobin 12.7, platelets 31,000. Essentially normal CMP with the exception of ALT 65. RADIOLOGIC STUDIES: Per HPI. IMPRESSION: 1. Progressive/recurrent left frontoparietal glioblastoma multiforme with associated edema and mass effect: I let Dr. Blanco know of her MRI findings and he will review. There is little likelihood of additional radiation therapy as an option. We discussed options of best supportive care with Hospice versus second-line therapy. We briefly discussed an available clinical trial with bevacizumab alone versus bevacizumab with peptide vaccine. She will think this over. Meanwhile, high-dose steroids are appropriate given the edema. 2. Disposition: She will likely need additional support at home with Home Health at a minimum. She reports Roberto is her medical power of litigation attorney. I introduced the concept of Code Status and Advance Directive, which will need to be discussed further with her when her medical power of litigation attorney is present as well. /[id number]/MODL MTDD
[2017-11-08] MEDS: CITALOPRAM 20 MG TAB PO SCH (20:38)
[2017-11-08] MEDS: PRAVASTATIN SODIUM 20 MG TAB PO SCH (20:38)
[2017-11-08] MEDS: MELATONIN 3 MG TAB PO SCH (20:38)
[2017-11-09] MEDS ORDERED: NS 500 ML IV ONE (00:05)
[2017-11-09] MEDS: DEXAMETHASONE 4 MG TAB PO SCH ×3 (05:26→17:21)
[2017-11-09] MEDS: CETIRIZINE 10 MG TAB PO SCH (08:53)
[2017-11-09] MEDS: levETIRAcetam 250 MG TAB PO SCH ×2 (08:53→20:44)
--- NOTE | 2017-11-09 16:11 | HOSPPROG ---
Hospitalist Progress Note Assessment/Plan: 62 yo F w GBM here w expressive aphasia GBM: recurrent despite resection and first line chemotherapy continue steroids entry into clinical trial vs hospice aphasia: 2/2 recurrent GBM w vasogenic edema steroids 11/09 improved a bit hypokalemia: repleted weakness: multifactorial pt/ot rec rehab vs snf vs 24 hour home care inpt rehab eval being pursued dispo: inpt Subjective: case d/w dr briggs. speech moderaely improved today Objective: Vital Signs Temp Pulse Resp BP Pulse Ox 36.8 C 70 16 101/69 97 11/09/17 11:43 11/09/17 11:43 11/09/17 11:43 11/09/17 11:43 11/09/17 11:43 Laboratory Results 11/09/17 04:02 11/08/17 11/09/17 11/10/17 05:59 05:59 05:59 Intake Total 2100 2350 500 Output Total 350 1000 Balance 1750 1350 500 - Physical Exam Constitutional: no apparent distress, appears nourished Eyes: PERRL, anicteric sclera Ears, Nose, Mouth, Throat: moist mucous membranes, hearing normal Cardiovascular: regular rate and rhythym, no murmur, rub, or gallop Respiratory: no respiratory distress, no rales or rhonchi Gastrointestinal: normoactive bowel sounds, soft, non-tender abdomen Genitourinary: no bladder fullness, No barros in urethra Skin: warm, normal color Musculoskeletal: No full muscle strength Neurologic: other (espressive aphasia w R sided weakness) ICD10 Worksheet Patient Problems: Problems Problem Status Onset Aphasia Acute Brain tumor Acute Hypokalemia Acute Thrombocytopenia Acute
--- NOTE | 2017-11-09 17:05 | ASMTCMCOM ---
CM Note CM Note Notes: Pt was admitted for increased weakness and difficulty ambulating due to glioblastoma multiforme. Pt is also experiencing expressive aphasia. Pt lives in [place] with her former partner Roberto Rasmussen ([phone]) to whom she refers as her pole setter. RN states pt expressed that Roberto is able to function in a decision making capacity, but no reference to that is in the chart at this time. Recommend initiating proxy designation. PT is recommending inpatient rehab, and OT is recommending home with 24/7 supervision upon discharge. Evaluation was ordered for IP Rehab and message left with Roberto to ascertain if he is available for 24/7 supervision. At this time, pt is expressing to RN that she would like to go to a rehab facility. Pt is at a cross-roads with her oncology treatment and is due for an appointment tomorrow at 11am with Helio at [facility]. If pt is unable to d/c in time for that appt, MD will ask if Helio can come see pt here. Per MD's note, options include d/c with hospice support vs. enroll in clinical trial. Depending on meeting with Helio tomorrow, hospice or palliative consult may be appropriate. CM to follow. D/C Plan: home with hospice vs inpatient rehab and clinical trial Date Signed: 11/09/2017 05:04 PM Electronically Signed By:Eileen Freeman
[2017-11-09] MEDS: CITALOPRAM 20 MG TAB PO SCH (20:45)
[2017-11-09] MEDS: MELATONIN 3 MG TAB PO SCH (20:45)
[2017-11-09] MEDS: PRAVASTATIN SODIUM 20 MG TAB PO SCH (20:45)
[2017-11-10] MEDS: DEXAMETHASONE 4 MG TAB PO SCH ×3 (00:16→11:54)
[2017-11-10 08:17] VITALS: BP 94/66
[2017-11-10] MEDS: levETIRAcetam 250 MG TAB PO SCH (09:10)
[2017-11-10] MEDS: CETIRIZINE 10 MG TAB PO SCH (09:10)
[2017-11-10 09:48] LABS: PLATELET COUNT 74 10^3/uL (150-400)
--- NOTE | 2017-11-10 12:46 | PDIAF ---
- Diagnosis Code Status: Full Code - Medication Management Discharge Medications: Medications to Continue on Transfer Acetaminophen [Tylenol 325mg (*)] 650 mg PO Q4HRS PRN tab 06/13/17 [Last Taken 11/07/17] Cetirizine [ZyrTEC 10 mg (*)] 10 mg PO DAILY tab 06/19/17 [Last Taken 11/07/17] Citalopram Hydrobromide [Celexa] 40 mg PO HS #30 tablet 06/19/17 [Last Taken 05/21] Lovastatin 20 mg PO HS #30 tablet 06/19/17 [Last Taken 11/06/17] Temazepam [Restoril 15 MG (*)] 30 mg PO HS PRN #10 cap 06/19/17 [Last Taken 05/21] levETIRAcetam [Keppra 500 mg (*)] 750 mg PO BID #90 tab 06/19/17 [Last Taken 06/21] Dexamethasone [Decadron 4 MG (*)] 4 mg PO Q6HRS tab 11/10/17 [Last Taken Unknown] Discharge Medications: Refer to the Discharge Home Medication list for PRN reason. - Orders Diet Recommendation: no restrictions on diet Diet Texture: Regular Texture Diet - Follow Up Care Current Providers and Referrals: NONE *PRIMARY CARE P,. [Primary Care Provider] - As per Instructions
--- NOTE | 2017-11-10 12:50 | PDDCSUM ---
Discharge Summary Discharge Summary: Admission Date: 11/07/2017 Discharge Date: 11/10/2017 Consults: Oncology Hospital Problem List: 62 yo F w GBM who presented with expressive aphasia Progessive/recurrent L frontparietal glioblastoma multiforme: recurrent despite resection and first line chemotherapy - Oncology consulted who recommend outpatient followup for consideration of clinical trial vs. hospice continue high dose steroids as outpatient aphasia: 2/2 recurrent GBM w vasogenic edema continue steroids as above hypokalemia: repleted weakness: multifactorial will be d/c to IP rehab for further management Time spent on discharge was >35 minutes with >50% of time spent on patient education/counseling
--- NOTE | 2017-11-10 15:17 | ASDISCHSUM ---
Discharge Information Plan Status:Outpatient Palliative Care Medically Cleared to Leave:11/10/2017 Discharge Date:11/10/2017 01:24 PM CM D/C Disposition:Home, Routine, Self-Care ADT D/C Disposition:[facility] IP Projected Discharge Date:11/10/2017 11:00 AM Transportation at D/C: Discharge Delay Reason: Follow-Up Date:11/10/2017 11:00 AM Discharge Slot: Final Diagnosis: Placement Information Referral Type:Palliative Care Referral ID:[id number] Provider Name:[facility] Address 1:[address] Phone Number: Address 2: Fax Number: Guido:Ellis Selection Factors: State:[place] Patient Contact Information Contact Name:WES Relationship: Address: Home Phone: Work Phone: City: [place] Phone: [facility] Code: Email: Financial Information Financial Class:Medicaid Primary Plan Desc:[place] Primary Plan Number:[id number] Secondary Plan Desc: Secondary Plan Number: Assessment Information [facility] CM Progress Note CM Note CM Note Notes: Pt was admitted for increased weakness and difficulty ambulating due to glioblastoma multiforme. Pt is also experiencing expressive aphasia. Pt lives in [place] with her former partner Roberto Rasmussen ([phone]) to whom she refers as her home furnishings sales representative. RN states pt expressed that Roberto is able to function in a decision making capacity, but no reference to that is in the chart at this time. Recommend initiating proxy designation. PT is recommending inpatient rehab, and OT is recommending home with 24/7 supervision upon discharge. Evaluation was ordered for IP Rehab and message left with Roberto to ascertain if he is available for 24/7 supervision. At this time, pt is expressing to RN that she would like to go to a rehab facility. Pt is at a cross-roads with her oncology treatment and is due for an appointment tomorrow at 11am with Helio at [facility]. If pt is unable to d/c in time for that appt, will ask if Helio can come see pt here. Per MD's note, options include d/c with hospice support vs. enroll in clinical trial. Depending on meeting with Helio tomorrow, hospice or palliative consult may be appropriate. CM to follow. D/C Plan: home with hospice vs inpatient rehab and clinical trial Date Signed: 11/09/2017 05:04 PM Electronically Signed By:Eileen Freeman Intervention Information
--- NOTE | 2017-11-10 15:18 | ASMTCMCOM ---
CM Note CM Note Notes: 11/10/2017 Case Management Note Faxed referral to [facility] for outpatient follow. No further case management d/c needs identified. Date Signed: 11/10/2017 03:18 PM Electronically Signed By:Bonnie Morin RN
--- NOTE | 2017-11-10 15:19 | ASMTLACE ---
LACE Length of stay for Answers: 2 days current admission Acuity / Level of Answers: Yes Care: Did the patient have an inpatient admission? Comorbidities - select Answers: Any tumor (including all that apply lymphoma or leukemia) Diabetes (uncontrolled or controlled) Other Notes: HTN; HLD # of Emergency department Answers: 1-2 visits in the last 6 months Social determinants Answers: Mental health diagnosis (anxiety, depression, pers onality disorders, etc.) Score: 13 Date Signed: 11/10/2017 03:18 PM Electronically Signed By:Bonnie Morin RN
--- NOTE | 2017-11-10 15:49 | ASMTCMCOM ---
CM Note CM Note Notes: Pt accepted at inpt rehab and DC'f there today. Pt filled out MDPOA paperwork and named ex Roberto GARZA as her POA. Pt approved for a red Issue adriano. Plan is for her to f/u with a new oncologist once she is DC'd from rehab to decide between clincal trial or hospice. Meanwhile, [facility] palliative team will follow pt for support and symptom mgmt. Date Signed: 11/10/2017 03:48 PM Electronically Signed By:Aissatou Ahuja LCSW
--- NOTE | 2017-11-10 17:23 | SOAPPROG ---
SOAP Progress Note Assessment/Plan: A/P: * Recurrent GBM: she has improved some with steroids. We discussed prognosis and she is understandably upset. Lengthy discussion regarding Hopsice vs. second-line therapy (Avastin vs. clinical trial with Avastin +/- peptide vaccine ). She will consider and would like to transfer care within [facility]. * Aphasia: some improvement with steroids. * Advanced directives: Roberto is her MDPOA but has not completed paperwork. Case management will assist her. Discussed code status and she requests DNR. * Dispo: Rehab with short interval f/u at [facility] with MD of her preference. 11/10/17 17:24 Subjective: S: Word-finding is better. R-sided weakness essentially the same. Upset about prognosis. Caregiver, Roberto, present. O: VS reviewed. Gen: still with significant word-finding difficulty/aphasia, but improved. Objective: Vital Signs Temp Pulse Resp BP Pulse Ox 36.6 C 62 16 94/66 L 96 11/10/17 08:11 11/10/17 08:11 11/10/17 08:11 11/10/17 09:09 11/10/17 08:11 Laboratory Results 11/10/17 09:39 11/10/17 05:34 11/09/17 11/10/17 11/11/17 05:59 05:59 05:59 Intake Total 2350 2450 Output Total 1000 1050 Balance 1350 1400 ICD10 Worksheet Patient Problems: Problems Problem Status Onset Aphasia Acute Brain tumor Acute Hypokalemia Acute Thrombocytopenia Acute
== END 2017-11-10 13:24 | DRG 41 ==
LOC: EDUNIT# → F1N 17:48
PROVIDERS: ADMIT Family Medicine; ATTEND Family Medicine
DX: C71.3 Malignant neoplasm of parietal lobe (principal); G93.6 Cerebral edema; R47.01 Aphasia; E87.6 Hypokalemia; Z80.3 Family history of malignant neoplasm of breast
CPT/HCPCS: 92507-GN; 92523-GN; 96365; 97112-GO; 97112-GP; 97116-GP; 97163-GP; 97167-GO; 97535-GO; A9585; J1100; J1650; J3480

== ENCOUNTER 2017-11-10 12:32 | Inpatient (IN) | payer MEDICAID ==
[2017-11-10] MEDS ORDERED: ACETAMINOPHEN 325 MG TAB PO PRN (14:20)
[2017-11-10] MEDS ORDERED: BISACODYL 10 MG SUPP PR PRN (14:21)
--- NOTE | 2017-11-10 15:43 | GHP ---
POST ADMISSION PHYSICIAN EVALUATION AND REHABILITATION TREATMENT PLAN DATE OF ADMISSION: 11/10/2017 DATE OF EVALUATION: 11/10/2017 TIME OF EVALUATION: 1410 REFERRING FACILITY: [facility]. IMPAIRMENT GROUP: 2.1 DATE OF ONSET: 11/07/2017 REFERRING PHYSICIAN: Dr. Cueva. CONSULTING PHYSICIAN: She was seen in consultation by Dr. Deutsch of Oncology. REHABILITATION DIAGNOSES: Expressive aphasia, right-sided weakness and fall due to recurrent glioblastoma multiforme. ETIOLOGIC DIAGNOSIS: Non-traumatic brain dysfunction. HISTORY OF PRESENT ILLNESS: This patient is a 62-year-old woman with glioblastoma multiforme, status post craniotomy and resection. She was previously at inpatient rehabilitation in June of this year and did quite well and went home, though she continued to have significant aphasia, expressive greater than receptive. She has since had radiation and chemotherapy with Temodar initially and with a 2nd round subsequently of Temodar. She developed worsening of her expressive aphasia and falls culminating in a large fall on 06/2017. She suffered bruising but no other injuries. She was brought to the hospital where MRI of her brain showed recurrent tumor in the left parietal lobe. She was not deemed a surgical candidate and she cannot have more radiation. She was treated with dexamethasone to address vasogenic edema of the brain. She had some improvement and was otherwise medically stable and appropriate for inpatient rehabilitation. STUDIES AND LABS DURING HER STAY: Brain MRI on 11/07/2017, showed left posterior frontal lobe intraaxial enhancing lesion measuring 4.2 x 4 cm with increasing vasogenic edema, midline shift, rightward subfalcine herniation, consistent with worsening glioblastoma multiforme. She initially had an elevated white blood cell count at 9.89 and a CBC was otherwise overall within normal limits. She initially had pancytopenia with a white blood cell count of 2.21, hemoglobin normal, hematocrit 35.4, and platelet count of 31 on 2017. On 11/10/2017, white blood cell count had improved to 2.8, but she had progression of the anemia with a hemoglobin of 10.8 and hematocrit of 30.9. Platelet count had improved to 74. Serum chemistry initially revealed a low potassium at 2.7. Renal function and electrolytes were otherwise within normal limits. Magnesium was normal at 2.2. Potassium corrected but on 11/08/2017, she had a hyponatremia with a sodium of 132. Liver function tests revealed a low albumin and a slightly high ALT of 64 and otherwise was unremarkable. PRECAUTIONS: She is a fall risk and she has seizure precautions. ACTIVE COMORBIDITIES: She has the tier 3 comorbidity of hemiparesis. She otherwise has no tier 1, tier 2 or tier 3 comorbidities. PAST MEDICAL HISTORY: 1. Glioblastoma multiforme. 2. Hypertension. 3. Dyslipidemia. 4. Depression. 5. Patent foramen ovale. PAST SURGICAL HISTORY: She had excision of a left parietal glioblastoma multiforme in June of this year and she has had wisdom teeth extraction. PRE-HOSPITAL MEDICATIONS: 1. Acetaminophen 650 mg p.o. q.4 hours p.r.n. 2. Cetirizine 10 mg p.o. daily. 3. Citalopram 40 mg p.o. at bedtime. 4. Lovastatin 20 mg p.o. at bedtime. 5. Temazepam 30 mg p.o. at bedtime p.r.n. 6. Triamterene/hydrochlorothiazide 1 p.o. daily. 7. Amlodipine 2.5 mg p.o. daily. 8. Levetiracetam 750 mg p.o. twice daily. 9. Temozolomide. ADMISSION MEDICATIONS: 1. Acetaminophen 650 mg p.o. q.4 hours p.r.n. 2. Cetirizine 10 mg p.o. daily. 3. Citalopram 40 mg p.o. at bedtime. 4. Dexamethasone 4 mg p.o. q.6 hours. 5. Levetiracetam 750 mg p.o. twice daily. 6. Lovastatin 20 mg p.o. at bedtime. 7. Temazepam 30 mg p.o. at bedtime p.r.n. ALLERGIES: There are no known drug allergies. SOCIAL HISTORY: She lives in [place], [place]. 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 She has a friend who is acting as caregiver. She has a history of cigarette smoking. REVIEW OF SYSTEMS: She has bruising on her legs from her fall, but she denies pain. She has lost considerable weight since her previous rehabilitation stay, approximately 16 kg. She denies reduced awareness of her right side. She thinks that her balance is worse and that her expressive language is worse than it was prior to recent onset of her difficulties. She has a good appetite. She denies nausea, vomiting, constipation, or diarrhea. Otherwise, a 10-point review of systems is negative. PHYSICAL EXAMINATION: VITAL SIGNS: Vitals are not yet available in the chart. This morning in the hospital, blood pressure was 94/66, heart rate was 62, respiratory rate was 16, oxygen saturation was 96% on room air, temperature was 36.6 degrees centigrade. Her weight is 65.8 kg for a body mass index of 25.7. GENERAL: This is a well-nourished, well-developed woman, dressed in street clothes, sitting in a chair, cooperative and in no acute distress. HEENT: Extraocular movements are intact. Pupils are equal, round, reactive to light. Mucous membranes are moist. Dentition is in good condition. She has an uncrowded airway, Mallampati class II. NECK: Supple. HEART: Regular rate and rhythm with no murmurs, rubs, or gallops. LUNGS: Clear to auscultation bilaterally. ABDOMEN: Benign. EXTREMITIES: There is no cyanosis, clubbing, or edema. NEUROLOGIC: She is alert. Orientation was not checked. Cranial nerves 2 through 12 are overall intact though she has a right facial droop. Motor strength is 4/5 at the right triceps, shoulder abduction and hand freight and passenger agent and 3/5 at the right biceps, right quadriceps is 5/5 and right hamstring is 3 to 4/5. Sensation is intact to light touch but feels abnormal to her on the right side. CURRENT LEVEL OF FUNCTION: Per the preadmission screen, she was on a regular diet. Grooming required minimal assist with verbal cues for right upper extremity incorporation. Dressing required moderate assist with verbal cues. Toileting required minimal assist with verbal cues. For bed mobility she required standby assistance with verbal cues. Transfers were done with minimal assist, verbal cues, and a front-wheeled walker. She required minimal assist for standing dynamic balance. Regarding endurance, she was noted to have limited activity tolerance. Regarding gait, she required minimal assist and verbal cues with a front-wheeled walker. She walked 70 feet. She was noted to have right lower extremity circumduction and decreased foot clearance in the swing phase. Regarding communication she was noted to have moderate to severe receptive aphasia and severe expressive aphasia. She was also noted to have right neglect. IMPRESSION: This is a 62-year-old woman with glioblastoma multiforme of the right parietal lobe, status post surgical excision, radiation and chemotherapy, who unfortunately has had a recurrence and is being treated with dexamethasone to reduce vasogenic edema. She is not a candidate for more radiation. She is planning to enter a clinical trial with bevacizumab after she leaves inpatient rehabilitation. She has right-sided weakness and expressive aphasia. She has hyponatremia and there was hypokalemia. She is otherwise medically stabilized and ready to participate in therapies. Her goal is to complete a rehabilitation stay and then return home with caregiver support. For a safe discharge she will need to progress to supervision level for discharge home with an assistive device for mobility. It is likely she will require supervision or assistance from a caregiver related to aphasia and limited participation in higher level IADLs prior to admission. It is expected she will achieve modified independence with basic mobility and ADLs. She will have therapy with physical therapy, occupational therapy, and speech and language pathology for 60 minutes for each discipline on 5-7 days of the week. Her expected duration of stay is 10 days. It is expected that upon discharge she will continue to benefit from home health services including [facility], OT, and PT. PLAN: 1. Increase debility due to recurrent glioblastoma multiforme in the left parietal lobe with right-sided weakness. PT and OT to optimize mobility and activities of daily living toward a modified independent level. 2. Severe expressive and moderate receptive aphasia continue. She will have speech and language pathology. 3. Recurrent glioblastoma multiforme. Continue dexamethasone to reduce vasogenic edema. She plans to enter a clinical trial after she discharges from inpatient rehabilitation. 4. History of hypertension. She has a low to normal blood pressure on no medications. Her previous prescription of triamterene and hydrochlorothiazide combination medication may have been etiologic in hypokalemia and hyponatremia and has been discontinued. Will monitor her blood pressure. 5. Hyponatremia and hypokalemia. We will repeat a basic metabolic profile in the morning. 6. Pancytopenia, possibly due to chemotherapy. We will repeat a CBC in the morning. 7. Depression versus adjustment disorder. Continue citalopram. 8. Insomnia was pre-existing though she was sleeping well with temazepam. It may be worse with dexamethasone. Continue temazepam at h.s. p.r.n. 9. Dyslipidemia. Continue pravastatin. 10. Discussed code status with the patient and she desires do not resuscitate status. 11. Prophylaxis. She is at elevated risk with relative immobility and right hemiparesis and a solid tumor. Continue enoxaparin at a preventive dose until her mobility recovers. 12. Followup. She will follow up with Oncology. She is choosing a new oncologist at [facility], Dr. Rojas. Her primary care provider is Dr. Amari Gonzalez in [place]. /[id number]/MODL MTDD
[2017-11-10] MEDS: DEXAMETHASONE 4 MG TAB PO SCH (17:57)
[2017-11-10] MEDS: levETIRAcetam 500 MG TAB PO SCH (20:49)
[2017-11-10] MEDS: PRAVASTATIN SODIUM 20 MG TAB PO SCH (20:50)
[2017-11-10] MEDS: CITALOPRAM 20 MG TAB PO SCH (20:50)
[2017-11-10] MEDS: TEMAZEPAM 15 MG CAP PO PRN (21:02)
[2017-11-11] MEDS: DEXAMETHASONE 4 MG TAB PO SCH ×4 (00:49→17:23)
[2017-11-11] MEDS: levETIRAcetam 500 MG TAB PO SCH ×2 (08:34→20:40)
[2017-11-11] MEDS: CETIRIZINE 10 MG TAB PO SCH (08:35)
[2017-11-11 09:04] LABS: PLATELET COUNT 78 10^3/uL (150-400)
--- NOTE | 2017-11-11 11:03 | SOAPPROG ---
SOAP Progress Note Assessment/Plan: Assessment: Increase debility due to recurrent glioblastoma multiforme in the left parietal lobe with right-sided weakness. PT and OT to optimize mobility and activities of daily living toward a modified independent level. Severe expressive and moderate receptive aphasia continue. She will have evaluation and treatment per speech and language pathology. Recurrent glioblastoma multiforme. Continue dexamethasone to reduce vasogenic edema. She plans to enter a clinical trial after she discharges from inpatient rehabilitation. History of hypertension. She has a low to normal blood pressure on no medications. Her previous prescription of triamterene and hydrochlorothiazide combination medication may have been etiologic in hypokalemia and hyponatremia and has been discontinued. Will monitor her blood pressure. Hyponatremia and hypokalemia. Resolved on labs 11/11/2017. Pancytopenia, possibly due to chemotherapy. Slight worsening on labs 11/11/2017 but platelets are stable. Absolute neutrophil count is well above 500 so she is not risk for opportunistic infections. Discussed with Oncologist Dr. Rojas, who will consult. Ordered peripheral smear but the lab tells me it won't get done until tomorrow 11/12/17. Depression versus adjustment disorder. Continue citalopram. Insomnia was pre-existing though she was sleeping well with temazepam. It may be worse with dexamethasone. Sleeping well with temazepam 30 mg at HS. Dyslipidemia. Continue pravastatin. Prophylaxis. She is at elevated risk with relative immobility and right hemiparesis and a solid tumor. Continue enoxaparin at a preventive dose until her mobility recovers. Followup. She will follow up with Oncology. She is choosing a new oncologist at [facility], Dr. Rojas. Her primary care provider is Dr. Amari Gonzalez in [place]. 11/11/17 11:13 Subjective: Still with some lightheadedness. Slept well. Not in pain. No cough or dyspnea , no fevers or chills. Bowels are moving. Objective: Vital Signs Temp Pulse Resp BP Pulse Ox 36.6 C 54 L 14 91/63 L 97 11/11/17 07:58 11/11/17 07:58 11/11/17 07:58 11/11/17 07:58 11/11/17 07:58 Laboratory Results 11/11/17 06:45 11/11/17 06:45 11/10/17 11/11/1718 05:59 05:59 05:59 Intake Total 240 240 Balance 240 240 Physical Exam - Physical Exam General Appearance: WD/WN, alert, no apparent distress Respiratory: normal breath sounds, No crackles, No rhonchi, No wheezing Cardiac/Chest: regular rate, rhythm, No edema, No diastolic murmur, No systolic murmur Skin: normal color, warm/dry Neuro/Psych: alert, normal mood/affect, motor weakness (RUE) ICD10 Worksheet Patient Problems: Problems Problem Status Onset Aphasia Acute Brain tumor Acute Hypokalemia Acute Thrombocytopenia Acute
[2017-11-11] MEDS ORDERED: SENNOSIDES 1 TAB PO PRN (16:42)
[2017-11-11] MEDS: PRAVASTATIN SODIUM 20 MG TAB PO SCH (20:40)
[2017-11-11] MEDS: CITALOPRAM 20 MG TAB PO SCH (20:40)
[2017-11-11] MEDS: TEMAZEPAM 15 MG CAP PO PRN (20:41)
--- NOTE | 2017-11-11 21:05 | PDCONSULT ---
Registered Nurse Post Partum Note: Patient is 62 year old female with history of GBM treated with temodar and radiation for which hematology was consulted for pancytopenia. Patient was recently admitted for worsening neurologic symptoms and found to have progression of disease after gross total resection 06/2017 and chemoXRT with temodar completed 08/2017. The notes suggest she only received 1-2 cycles of "adjuvant" temodar. The patient seems to suggest she was done with temodar in August. She has difficulty giving a history due to aphasia, but perseverates on note getting the MRI of her brain sooner when she had more mild symptoms. CBC 10/30 showed a WBC of 2.77 with ANC of 1.79, hbg 13.3 g/dl and plts 68,000. WBC on day of consultation was 1.92, hbg 9.9 g/dl and plts 78,000 (ANC 1200). Patient denies any bleeding. Review of systems -Unable to be obtained properly due to aphasia. PMH -PFO -GBM -Depression -Dyslipidemia PSH -Gross total resection of GBM 06/2017 [facility] -Lives with her significant other, Roberto -History of tobacco use, no alcohol or drugs FH -Non contributory Blood Pressure: 100/72 Heart Rate: 68 Respiratory Rate: 16 O2 Sat (%): 98 Temperature (C): 36.4 C Assessment and Plan Assessment: Patient is a 62 year old female with GBM status post gross total resection followed by chemoXRT for which hematology was consulted for pancytopenia. Plan: #Pancytopenia Difficult to know when her last dose of temodar was before coming into the hospital. She was seen 10/30 and at that time had platelet count of 68,000 presumably from temodar. It is possible, although seems a bit early, for her to have developed MDS secondary to temodar. Marrow suppression from chemotherapy or MDS would be highest on my differential diagnosis. Will need to carefully review her peripheral blood smear to help elucidate this. Will get reticulocyte with her next CBC as well. Diagnosing her with MDS, which will require bone marrow biopsy, is unlikely to be of any clinical benefit and would likely only cause more anxiety concern to the patient. Her next line of therapy does not require a healthy marrow per se and her prognosis is unfortunately poor. -Will follow-up with CBC 11/12 with reticulocyte count, will evaluate smear off that CBC as well #GBM Progressed on adjuvant temodar, MGMT unmethylated so not totally unexpected. Unfortunately most recent progression has left her less able to communicate due to expressive aphasia. She also appears to have developed mild psedobulbar affect and right sided weakness (mainly flexors). Next line of therapy would be single agent avastin. Will arrange outpatient follow-up. Prognosis is unfortunately poor. Mitch Rojas [phone] Physical Exam Physical Exam: - Physical Exam General Appearance: alert, no apparent distress Eye Exam: bilateral: PERRL Throat: pharynx normal Neck: non-tender, full range of motion, supple Cardiovascular/Respiratory: regular rate, rhythm, normal peripheral pulses, normal breath sounds. No: JVD, respiratory distress Abdominal Exam: non-tender. No: organomegaly Neuro/Psych: other (expressive aphasia, right sided weakness more pronounced with extensors) Skin: warm/dry. No: rash Lymphatic: no adenopathy
[2017-11-12] MEDS: DEXAMETHASONE 4 MG TAB PO SCH ×4 (00:21→17:16)
[2017-11-12] MEDS: levETIRAcetam 500 MG TAB PO SCH ×2 (08:54→20:23)
[2017-11-12] MEDS: CETIRIZINE 10 MG TAB PO SCH (08:54)
[2017-11-12 09:06] LABS: PLATELET COUNT 115 10^3/uL (150-400)
--- NOTE | 2017-11-12 14:31 | SOAPPROG ---
SOAP Progress Note Assessment/Plan: Assessment: Increase debility due to recurrent glioblastoma multiforme in the left parietal lobe with right-sided weakness. * Standby to contact guard assist for mobility. Standby to minimal assist for ADLs. * Continue PT and OT to optimize mobility and activities of daily living toward a modified independent level. Severe expressive and moderate receptive aphasia continue. She will have evaluation and treatment per speech and language pathology. Recurrent glioblastoma multiforme. Continue dexamethasone to reduce vasogenic edema. She plans to enter a clinical trial after she discharges from inpatient rehabilitation. History of hypertension. She has a low to normal blood pressure on no medications. Her previous prescription of triamterene and hydrochlorothiazide combination medication may have been etiologic in hypokalemia and hyponatremia and has been discontinued. Will monitor her blood pressure. Hyponatremia and hypokalemia. Resolved on labs 11/11/2017. Pancytopenia, possibly due to chemotherapy. Slight worsening on labs 11/11/2017 but platelets are stable. Absolute neutrophil count is well above 500 so she is not risk for opportunistic infections. * Appreciate assistance of oncologist Dr. Rojas. He reports that peripheral blood smear is benign he thinks that pancytopenia is likely due to Temodar. He will follow up with her after her discharge. * Blood counts slightly improved 99 over 11/11/2017. Has low reticulocytosis. Depression versus adjustment disorder. Continue citalopram. Insomnia was pre-existing though she was sleeping well with temazepam. It may be worse with dexamethasone. Sleeping well with temazepam 30 mg at HS. Dyslipidemia. Continue pravastatin. Prophylaxis. She is at elevated risk with relative immobility and right hemiparesis and a solid tumor. Continue enoxaparin at a preventive dose until her mobility recovers. Followup. She will follow up with Oncology, Dr. Rojas. Her primary care provider is Dr. Amari Gonzalez in [place]. 11/12/17 14:25 Subjective: Concerned about prognosis she understood from oncologist Dr. Deutsch that it might only be weeks. Otherwise without complaints. Objective: Vital Signs Temp Pulse Resp BP Pulse Ox 37.1 C 62 16 102/62 98 11/12/17 06:39 11/12/17 06:39 11/12/17 06:39 11/12/17 06:39 11/12/17 06:39 Laboratory Results 11/12/17 06:50 11/11/17 06:45 11/11/17 11/12/17 11/13/17 05:59 05:59 05:59 Intake Total 240 970 760 Output Total 700 Balance 240 270 760 Physical Exam - Physical Exam General Appearance: WD/WN, alert, no apparent distress Respiratory: No respiratory distress, No accessory muscle use Skin: normal color, warm/dry Neuro/Psych: alert, normal mood/affect, aphasia (Expressive), motor weakness ( Right upper extremity) ICD10 Worksheet Patient Problems: Problems Problem Status Onset Aphasia Acute Brain tumor Acute Hypokalemia Acute Thrombocytopenia Acute
[2017-11-12] MEDS: PRAVASTATIN SODIUM 20 MG TAB PO SCH (20:23)
[2017-11-12] MEDS: TEMAZEPAM 15 MG CAP PO PRN (20:23)
[2017-11-12] MEDS: CITALOPRAM 20 MG TAB PO SCH (20:23)
[2017-11-13] MEDS: DEXAMETHASONE 4 MG TAB PO SCH ×5 (00:37→23:37)
[2017-11-13] MEDS: levETIRAcetam 500 MG TAB PO SCH ×2 (07:54→20:20)
[2017-11-13] MEDS: CETIRIZINE 10 MG TAB PO SCH (07:55)
--- NOTE | 2017-11-13 13:07 | SOAPPROG ---
SOAP Progress Note Assessment/Plan: Assessment: Increase debility due to recurrent glioblastoma multiforme in the left parietal lobe with right-sided weakness. * Initial functional independence measure is 72 on 11/13/2017. Standby assist for bed mobility, contact guard assist for transfers. Ambulated 150 ft with a front wheeled walker and standby assist. Climbed and descended 2 stairs with minimal assist. 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 Occasionally catches her right toe with ambulation. Grooming and hygiene require setup and standby assist. Upper body and lower body dressing require setup and standby assist with cues to incorporate the right upper extremity. Bathing requires setup and supervision. Contact guard assist for toilet transfer and bath transfer. Toileting is done with supervision and cues for clothing management. She has right hemineglect. * Continue PT and OT to optimize mobility and activities of daily living toward a modified independent level. Severe expressive and moderate receptive aphasia; will change from discharge in June of this year. Also noted are mild deficits to memory and attention, and occasional leak to the left labial seal. * Continue speech and language pathology. Recurrent glioblastoma multiforme. Continue dexamethasone to reduce vasogenic edema. She plans to enter a clinical trial after she discharges from inpatient rehabilitation. History of hypertension. She has a low to normal blood pressure on no medications. Her previous prescription of triamterene and hydrochlorothiazide combination medication may have been etiologic in hypokalemia and hyponatremia and has been discontinued. Will monitor her blood pressure. Hyponatremia and hypokalemia. Resolved on labs 11/11/2017. Pancytopenia, possibly due to chemotherapy. Slight worsening on labs 11/11/2017 but platelets are stable. Absolute neutrophil count is well above 500 so she is not risk for opportunistic infections. * Appreciate assistance of oncologist Dr. Rojas. He reports that peripheral blood smear is benign he thinks that pancytopenia is likely due to Temodar. He will follow up with her after her discharge. * Blood counts slightly improved 99 over 11/11/2017. Has low reticulocytosis. Depression versus adjustment disorder. Continue citalopram. Insomnia was pre-existing though she was sleeping well with temazepam. Sleeping well with temazepam 30 mg at HS. Dyslipidemia. Continue pravastatin. Prophylaxis. She is at elevated risk with relative immobility and right hemiparesis and a solid tumor. Continue enoxaparin at a preventive dose until her mobility recovers. DISPOSITION: Attended staffing, 15 min. Discussed with case management, nursing, dietitian, PT, OT, PEDIATRIC CLINICAL NURSE SPECIALIST. She lives with friend and caregiver named been in [place]. She also has [place] of friends in [place]. care center manager plans to establish Medicaid HCBS for additional care at home. Discharge date will depend on caregiver availability as she currently needs supervision or assistance 24 hr a day. FOLLOW-UP:. She will follow up with Oncology, Dr. Rojas. Her primary care provider is Dr. Amari Gonzalez in [place]. 11/13/17 13:01 Subjective: No complaints. Not in pain. No fevers or chills, no cough or dyspnea. Wants to have followup with Oncology Dr. Rojas as soon as possible after discharge. Objective: Vital Signs Temp Pulse Resp BP Pulse Ox 36.6 C 62 16 98/64 L 96 11/13/17 07:43 11/13/17 07:43 11/13/17 07:43 11/13/17 07:43 11/13/17 07:43 Laboratory Results 11/12/17 06:50 11/11/17 06:45 11/12/17 11/13/17 11/14/17 05:59 05:59 05:59 Intake Total 970 1000 240 Output Total 700 Balance 270 1000 240 - Time Spent With Patient Time Spent With Patient: Greater than 35 min floor time today, including more than 50% of time in coordination of care, and counseling patient. Physical Exam - Physical Exam General Appearance: WD/WN, alert, no apparent distress Respiratory: No respiratory distress, No accessory muscle use Skin: normal color, warm/dry Neuro/Psych: alert, normal mood/affect, oriented x 3, aphasia (Expressive), motor weakness (Right upper extremity) ICD10 Worksheet Patient Problems: Problems Problem Status Onset Aphasia Acute Brain tumor Acute Hypokalemia Acute Thrombocytopenia Acute
[2017-11-13] MEDS: CITALOPRAM 20 MG TAB PO SCH (20:20)
[2017-11-13] MEDS: PRAVASTATIN SODIUM 20 MG TAB PO SCH (20:20)
[2017-11-13] MEDS: TEMAZEPAM 15 MG CAP PO PRN (21:14)
[2017-11-14] MEDS: DEXAMETHASONE 4 MG TAB PO SCH ×4 (05:08→23:29)
[2017-11-14] MEDS: levETIRAcetam 500 MG TAB PO SCH ×2 (08:33→20:25)
[2017-11-14] MEDS: CETIRIZINE 10 MG TAB PO SCH (08:34)
[2017-11-14] MEDS: NICOTINE 14 MG/24 HR PATCH TD SCH (16:07)
--- NOTE | 2017-11-14 17:04 | SOAPPROG ---
SOAP Progress Note Assessment/Plan: Assessment: Increase debility due to recurrent glioblastoma multiforme in the left parietal lobe with right-sided weakness. * Initial functional independence measure is 72 on 11/13/2017. Standby assist for bed mobility, contact guard assist for transfers. Ambulated 150 ft with a front wheeled walker and standby assist. Climbed and descended 2 stairs with minimal assist. 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 Occasionally catches her right toe with ambulation. Grooming and hygiene require setup and standby assist. Upper body and lower body dressing require setup and standby assist with cues to incorporate the right upper extremity. Bathing requires setup and supervision. Contact guard assist for toilet transfer and bath transfer. Toileting is done with supervision and cues for clothing management. She has right hemineglect. * Continue PT and OT to optimize mobility and activities of daily living toward a modified independent level. Severe expressive and moderate receptive aphasia; will change from discharge in June of this year. Also noted are mild deficits to memory and attention, and occasional leak to the left labial seal. * Continue speech and language pathology. Recurrent glioblastoma multiforme. Continue dexamethasone to reduce vasogenic edema. She plans to enter a clinical trial after she discharges from inpatient rehabilitation. * Oncology consultation planned prior to discharge. History of hypertension. She has a low to normal blood pressure on no medications. Her previous prescription of triamterene and hydrochlorothiazide combination medication may have been etiologic in hypokalemia and hyponatremia and has been discontinued. Will monitor her blood pressure. Hyponatremia and hypokalemia. Resolved on labs 11/11/2017. Pancytopenia, possibly due to chemotherapy. Slight worsening on labs 11/11/2017 but platelets are stable. Absolute neutrophil count is well above 500 so she is not risk for opportunistic infections. * Appreciate assistance of oncologist Dr. Rojas. He reports that peripheral blood smear is benign he thinks that pancytopenia is likely due to Temodar. He will follow up with her after her discharge. * Blood counts slightly improved 99 over 11/11/2017. Has low reticulocytosis. Depression versus adjustment disorder. Continue citalopram. Insomnia was pre-existing though she was sleeping well with temazepam. Sleeping well with temazepam 30 mg at HS. Dyslipidemia. Continue pravastatin. Prophylaxis. She is at elevated risk with relative immobility and right hemiparesis and a solid tumor. Continue enoxaparin at a preventive dose until her mobility recovers. DISPOSITION: She lives with friend and caregiver named Roberto in [place]. She also has large [place] of friends in [place]. facility operations manager plans to establish Medicaid HCBS for additional care at home. Discharge date will depend on caregiver availability as she currently needs supervision or assistance 24 hr a day; planned for 11/15/2017 or 11/16/2017. FOLLOW-UP:. She will follow up with Oncology, Dr. Rojas. Her primary care provider is Dr. Amari Gonzalez in [place]. 11/14/17 17:02 Subjective: Very concerned that she wants to see Oncology prior to discharge. If Oncology is unable to visit tomorrow she would like to stay until the day after. It is also important to her that her partner Roberto be present when the agriculture consultant visits. Otherwise without complaints. Not in pain, no cough or dyspnea, no fevers or chills, bowels moving. Objective: Vital Signs Temp Pulse Resp BP Pulse Ox 36.9 C 77 16 94/65 L 97 11/14/17 08:50 11/14/17 08:50 11/14/17 08:50 11/14/17 08:50 11/14/17 08:50 Laboratory Results 11/12/17 06:50 11/11/17 06:45 11/13/17 11/14/17 11/15/17 05:59 05:59 05:59 Intake Total 1000 1180 Balance 1000 1180 Physical Exam - Physical Exam General Appearance: WD/WN, alert, no apparent distress Respiratory: No respiratory distress, No accessory muscle use Skin: normal color, warm/dry Neuro/Psych: alert, normal mood/affect, oriented x 3, aphasia (Expressive), motor weakness (Right upper extremity) ICD10 Worksheet Patient Problems: Problems Problem Status Onset Aphasia Acute Brain tumor Acute Hypokalemia Acute Thrombocytopenia Acute
[2017-11-14] MEDS: CITALOPRAM 20 MG TAB PO SCH (20:24)
[2017-11-14] MEDS: PRAVASTATIN SODIUM 20 MG TAB PO SCH (20:25)
[2017-11-14] MEDS: TEMAZEPAM 15 MG CAP PO PRN (21:05)
[2017-11-15] MEDS: DEXAMETHASONE 4 MG TAB PO SCH ×3 (05:46→17:47)
[2017-11-15] MEDS: NICOTINE 14 MG/24 HR PATCH TD SCH (08:40)
[2017-11-15] MEDS: levETIRAcetam 500 MG TAB PO SCH ×2 (08:41→21:25)
[2017-11-15] MEDS: CETIRIZINE 10 MG TAB PO SCH (08:42)
--- NOTE | 2017-11-15 15:19 | SOAPPROG ---
SOAP Progress Note Assessment/Plan: Assessment: Increase debility due to recurrent glioblastoma multiforme in the left parietal lobe with right-sided weakness. * Initial functional independence measure is 72 on 11/13/2017. Standby assist for bed mobility, contact guard assist for transfers. Ambulated 150 ft with a front wheeled walker and standby assist. Climbed and descended 2 stairs with minimal assist. 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 Occasionally catches her right toe with ambulation. Grooming and hygiene require setup and standby assist. Upper body and lower body dressing require setup and standby assist with cues to incorporate the right upper extremity. Bathing requires setup and supervision. Contact guard assist for toilet transfer and bath transfer. Toileting is done with supervision and cues for clothing management. She has right hemineglect. * Continue PT and OT to optimize mobility and activities of daily living toward a modified independent level. Severe expressive and moderate receptive aphasia; little change from discharge in June of this year. Also noted are mild deficits to memory and attention, and occasional leak to the left labial seal. * Continue speech and language pathology. Recurrent glioblastoma multiforme. Continue dexamethasone to reduce vasogenic edema. * Oncology consultation for day of discharge. Her partner Roberto will transport her. History of hypertension. She has a low to normal blood pressure on no medications. Her previous prescription of triamterene and hydrochlorothiazide combination medication may have been etiologic in hypokalemia and hyponatremia and has been discontinued. Will monitor her blood pressure. Hyponatremia and hypokalemia. Resolved on labs 11/11/2017. Pancytopenia, possibly due to chemotherapy. Slight worsening on labs 11/11/2017 but platelets are stable. Absolute neutrophil count is well above 500 so she is not risk for opportunistic infections. * Appreciate assistance of oncologist Dr. Rojas. He reports that peripheral blood smear is benign he thinks that pancytopenia is likely due to Temodar. He will follow up with her after her discharge. * Blood counts slightly improved 99 over 11/11/2017. Has low reticulocytosis. Depression versus adjustment disorder. Continue citalopram. Insomnia was pre-existing though she was sleeping well with temazepam. Sleeping well with temazepam 30 mg at HS. Dyslipidemia. Continue pravastatin. Prophylaxis. She is at elevated risk with relative immobility and right hemiparesis and a solid tumor. Continue enoxaparin at a preventive dose until her mobility recovers. DISPOSITION: She lives with friend and caregiver named Roberto in [place]. She also has large [place] of friends in [place]. manager strategic marketing plans to establish Medicaid HCBS for additional care at home. Discharge home on 11/16/2017. Will have oncology appointment at 1:30 p.m. On 11/16/2017, after discharge. FOLLOW-UP:. She will follow up with Oncology, Dr. Rojas. Her primary care provider is Dr. Amari Gonzalez in [place]. 11/15/17 15:16 Subjective: No complaints. Not in pain. Sleeping well. Objective: Vital Signs Temp Pulse Resp BP Pulse Ox 36.8 C 77 16 125/79 H 15 L 11/14/17 20:00 11/15/17 05:52 11/14/17 20:00 11/15/17 05:52 11/15/17 05:52 Laboratory Results 11/12/17 06:50 11/11/17 06:45 11/14/17 11/15/17 11/16/17 05:59 05:59 05:59 Intake Total 1180 1340 240 Output Total 800 Balance 1180 1340 -560 Physical Exam - Physical Exam General Appearance: WD/WN, alert, no apparent distress Respiratory: normal breath sounds, No crackles, No rhonchi, No wheezing Cardiac/Chest: regular rate, rhythm, No diastolic murmur, No systolic murmur Skin: normal color, warm/dry Neuro/Psych: alert, normal mood/affect, oriented x 3, aphasia (Expressive), motor weakness (Right upper extremity) ICD10 Worksheet Patient Problems: Problems Problem Status Onset Aphasia Acute Brain tumor Acute Hypokalemia Acute Thrombocytopenia Acute
[2017-11-15] MEDS: TEMAZEPAM 15 MG CAP PO PRN (21:25)
[2017-11-15] MEDS: CITALOPRAM 20 MG TAB PO SCH (21:25)
[2017-11-15] MEDS: PRAVASTATIN SODIUM 20 MG TAB PO SCH (21:25)
[2017-11-16] MEDS: DEXAMETHASONE 4 MG TAB PO SCH ×3 (00:43→12:08)
[2017-11-16] MEDS: CETIRIZINE 10 MG TAB PO SCH (08:45)
[2017-11-16] MEDS: levETIRAcetam 500 MG TAB PO SCH (08:45)
[2017-11-16] MEDS: NICOTINE 14 MG/24 HR PATCH TD SCH (08:45)
[2017-11-16 09:38] VITALS: BP 114/90
--- NOTE | 2017-11-16 17:28 | GDS ---
ADMITTING DIAGNOSIS: Debility due to progression of glioblastoma multiforme. DISCHARGE DIAGNOSIS: Debility due to progression of glioblastoma multiforme. OTHER DISCHARGE DIAGNOSES: 1. Severe expressive and moderate receptive aphasia. 2. Pancytopenia. COMPLICATIONS: There were none. PROCEDURES: There were none. CONSULTATIONS: She was seen in consultation by Substance Abuse Therapist/Oncologist, Dr. Rojas. HISTORY AND HOSPITAL COURSE: This patient came to [facility] on 11/07/2017, with expressive aphasia and right-sided weakness. She had a fall. She had a history of resection of a glioblastoma multiforme in June of 2017. She subsequently had radiation to the brain and 2 cycles of Temodar. When she was hospitalized, an MRI of the brain showed recurrent tumor in the left parietal lobe. She was not a surgical candidate nor was she is a candidate for more irradiation. She had some improvement in terms of functional status and was otherwise medically stable and appropriate for inpatient rehabilitation. She was initially requiring standby to contact guard assist for mobility and standby to minimal assist for activities of daily living. She had severe expressive and moderate receptive aphasia. She had a functional independence measure of 72 on 11/13/2017. She had ambulated 150 feet with a front-wheeled walker and standby assist. She is able to climb and descend 2 stairs with minimal assist. She had right upper extremity weakness and requires a specialized hand marketing support specialist to keep her hand on her front wheeled walker. She would occasionally catch her right toe with ambulation. She was able to do grooming and hygiene with setup and standby assist. Upper and lower body dressing also required setup and standby assist with cues to incorporate the right upper extremity. Bathing required setup and supervision. She required contact guard assist for toilet transfers and bath transfers, and for toileting she required supervision and cues for clothing management. She was noted to have a right hemineglect. Regarding severe expressive and moderate receptive aphasia, Speech Therapy saw her and there is little change from her status in June of this year when she also had a rehabilitation stay. She had pancytopenia in the hospital. Her absolute neutrophil count was well above 500, so there was no risk for opportunistic infections. She was seen in consultation by Oncologist/Substance Abuse Therapist, Dr. Rojas. Dr. Rojas reviewed a peripheral blood smear and thought that it was a benign and not malignant pancytopenia and was likely due to Temodar. Her blood counts slightly improved on 11/12/2017 over 11/11/2017. Her white blood cell count was 1.92, with an absolute neutrophil count of 1.19. Hemoglobin was 10.2 and hematocrit was 29.4, platelet count was 115. Reticulocyte percent was 1.48 and absolute reticulocyte count was 0.04. DISCHARGE PLAN: Condition upon discharge is good, but prognosis is poor due to recurrent glioblastoma multiforme. Discharge destination is home with the help of her friend and caregiver, Roberto. DIET: Regular. ACTIVITY: Ad lilian, but she will need supervision to standby assist due to right hemineglect and occasionally catching her right foot. She is will continue with a front-wheeled walker. DISCHARGE MEDICATIONS: 1. Acetaminophen 650 mg p.o. q.4 hours p.r.n. 2. Cetirizine 10 mg p.o. daily. 3. Citalopram 40 mg p.o. daily. 4. Dexamethasone 4 mg p.o. q.6 hours. 5. Levetiracetam 750 mg p.o. twice daily. 6. Lovastatin 20 mg p.o. at bedtime. 7. Nicotine patch daily. 8. Senna 1 tab p.o. twice daily. 9. Temazepam 30 mg p.o. at bedtime. ISSUES TO BE ADDRESSED AT FOLLOWUP: 1. Functional status: She can initially continue PT, OT, and ASSOCIATE CREATIVE DIRECTOR, and she can follow up with her Primary Care Provider, Dr. Gonzalez, regarding her progress. 2. Glioblastoma multiforme: Our understanding is that it is unlikely that she will benefit any further treatment. She was interested in entering a clinical trial with bevacizumab. She has an Oncology appointment on the day of discharge where this can be discussed. Alternatively, she might enter hospice care, though if she has hospice care she cannot concurrently have rehabilitative services. 3. Pancytopenia, likely due to Temodar. There was no intervention indicated. 4. Dyslipidemia, on lovastatin. If she is entering hospice, there is no indication to continue lipid control. 5. Insomnia has responded well to the 30 mg of temazepam at bedtime and this should be continued. TIME: Greater than 30 minutes was spent on this discharge including medication reconciliation, coordination of care, and counseling patient. /[id number]/MODL MTDD
== END 2017-11-16 12:43 | disposition home or self-care (01) | DRG 862 ==
LOC: BREH 13:47
PROVIDERS: ADMIT Internal Medicine; ATTEND Internal Medicine
PROC: F08Z7ZZ Vocational Activities and Functional Community or Work Reintegration Skills Treatment (ICD-10-PCS; principal; 2017-11-10)
PROC: F0636ZZ Communicative/Cognitive Integration Skills Treatment of Neurological System - Whole Body (ICD-10-PCS; principal; 2017-11-10)
PROC: F07M3ZZ Motor Function Treatment of Musculoskeletal System - Whole Body (ICD-10-PCS; principal; 2017-11-10)
DX: Z48.811 Encounter for surgical aftercare following surgery on the nervous system (principal); C71.3 Malignant neoplasm of parietal lobe; D61.811 Other drug-induced pancytopenia; G81.91 Hemiplegia, unspecified affecting right dominant side; R47.01 Aphasia; E87.1 Hypo-osmolality and hyponatremia; R53.81 Other malaise; I10 Essential (primary) hypertension; E78.5 Hyperlipidemia, unspecified; G47.00 Insomnia, unspecified; Z91.81 History of falling; Z92.3 Personal history of irradiation
CPT/HCPCS: 92507-GN; 92523-GN; 97110-GO; 97110-GP; 97112-GO; 97112-GP; 97116-GP; 97162-GP; 97166-GO; 97530-GO; 97530-GP; 97535-GO

== ENCOUNTER → 2018-01-26 | Outpatient (CLI) | payer MEDICAID | LOC: FIMAGING 15:30 | PROVIDERS: ATTEND Internal Medicine Hematology & Oncology | DX: C71.3 Malignant neoplasm of parietal lobe (principal) ==

== ENCOUNTER → 2018-04-30 | Outpatient (CLI) | payer MEDICAID ==
[~2018-04-30] MED LIST: GADOBUTROL 10 ML VIAL IVP ONE
== END ==
LOC: FIMAGING 09:32
PROVIDERS: ATTEND Internal Medicine Hematology & Oncology
DX: C71.3 Malignant neoplasm of parietal lobe (principal); R47.01 Aphasia; G81.91 Hemiplegia, unspecified affecting right dominant side; R53.83 Other fatigue
CPT/HCPCS: A9585